=== PATIENT | female | born 1955 | race Hispanic/Latino ===

== ENCOUNTER 2017-08-13 09:00 | Inpatient (IN) | payer OTHER ==
[2017-08-13 09:15] VITALS: BMI 31.2
[2017-08-13] MEDS ORDERED: Midazolam 2 MG/2 ML VIAL ONE (10:08)
[2017-08-13] MEDS ORDERED: Succinylcholine 200 mg/10 ml Inj IV ONE (10:08)
[2017-08-13] MEDS ORDERED: Bupivacaine HCl 0.5% PF (10 ml) Inj ONE (10:08)
[2017-08-13] MEDS ORDERED: Lidocaine 4% (Laryng-O-Jet) Kit MM ONE (10:08)
[2017-08-13] MEDS ORDERED: Propofol 10 mg/ml Inj (20 ML) ONE ×2 (10:08)
[2017-08-13] MEDS ORDERED: Ropivacaine 0.5% 30ML IV ONE (10:08)
[2017-08-13] MEDS ORDERED: Morphine 1 mg/ml preservative-free Inj(Duramorph) ONE (10:44)
[2017-08-13] MEDS ORDERED: Lactated Ringer's 1,000 ML IV ONE ×3 (11:15→15:10)
[2017-08-13] MEDS ORDERED: Rocuronium 10 mg/ml (5 ml) ONE (11:32)
[2017-08-13] MEDS ORDERED: ePHEDrine 50 mg/ml Inj ONE (11:53)
[2017-08-13] MEDS ORDERED: Neostigmine Methylsulfate 3mg/3ml Syringe IV ONE (13:31)
--- NOTE | 2017-08-13 14:01 | PCM.SURG1 ---
Surgeon's Initial Post Op Note - Surgeon's Notes Surgeon: Claudia Pfeiffer MD Weighmaster Lead: Divya Barahona PA-C; Nancy Corey Type of Anesthesia: General Endo Pre-Operative Diagnosis: Left hip severe osteoarthritis Operative Findings: see op report Post-Operative Diagnosis: same as pre-op dx Operation Performed: L THR Specimen/Specimens Removed: left hip femoral head, soft tissue Estimated Blood Loss: EBL {In ML}: 200 Date of Surgery/Procedure: 08/13/17 Time of Surgery/Procedure: 12:00
[2017-08-13] MEDS ORDERED: Dexamethasone 4 mg/1 ml IVP PRN (14:14)
[2017-08-13] MEDS: HYDROmorphone 0.5 mg/0.5 ml ISec IVP PRN ×2 (14:40→14:42)
--- NOTE | 2017-08-13 16:07 | RAD ---
PROCEDURE: Left Hip X-ray Radiographs. HISTORY: s/p LTHR COMPARISON: None. FINDINGS: BONES: Status post left total hip replacement. No acute fracture. No evidence of prosthesis loosening. No dislocation. JOINTS: There is severe osteoarthritis of the right hip. SOFT TISSUES: Normal. OTHER FINDINGS: None. IMPRESSION: Left total hip replacement. Osteoarthritis of the right hip. Otherwise unremarkable examination
[2017-08-13 16:13] LABS: HEMATOCRIT 35.5 % (34.0-47.0); MEAN CELL VOLUME 94.5 fl (81.0-99.0); MEAN CORPUSCULAR HEMOGLOBIN 31.3 pg (27.0-31.0); MEAN CORPUSCULAR HGB CONC 33.1 g/dL (33.0-37.0); RED CELL DISTRIBUTION WIDTH 13.5 % (11.5-14.5); WHITE BLOOD COUNT 17.8 K/uL (4.8-10.8)
[2017-08-13] MEDS ORDERED: Sodium Chloride 0.9% 1,000 ML IV SCH (17:00)
[2017-08-13] MEDS ORDERED: Influenza Vaccine 18yr & older 0.5 ML/45 MCG SYR IM ONE (19:10)
--- NOTE | 2017-08-13 19:11 | CP.PCM.HP ---
History of Present Illness - History of Present Illness History of Present Illness: CC: LEFT Hip replacement for severe OA 62F p/w bilateral hip OA for scheduled surgery and now s/p LEFT THR. She reports pain is well-controlled but having mild dizziness after receiving pain medication, but her nausea is the biggest concern right now. Otherwise, she denies any SOB, chest pain/palpitations, abdominal pain, dysuria, LEFT foot numbness/tingling. PMH: HTN, Depression, OA b/l hips, Prediabetes PSH: C-sxn x1, Tummy tuck, Rt great toe surgery LOURDES: See Med Rec (Called [facility] 08/13/17 to confirm) ALL: NKDA Present on Admission - Present on Admission Any Indicators Present on Admission: No Review of Systems - Gastrointestinal Gastrointestinal: Nausea - Musculoskeletal Musculoskeletal: As Per HPI Past Patient History - Past Medical History & Family History Past Medical History?: Yes - Past Social History Smoking Status: Never Smoked - CARDIAC Hx Cardiac Disorders: Yes Hx Hypertension: Yes (NO MEDS) - PULMONARY Hx Respiratory Disorders: No - NEUROLOGICAL Hx Neurological Disorder: No - HEENT Hx HEENT Problems: No - RENAL Hx Chronic Kidney Disease: No - ENDOCRINE/METABOLIC Hx Endocrine Disorders: Yes Hx Diabetes Mellitus Type 2: Yes (QNO-YCIAQRTH-IA MEDS) - HEMATOLOGICAL/ONCOLOGICAL Hx Blood Disorders: No Hx AIDS: No Hx Anemia: No Hx Blood Transfusions: No - INTEGUMENTARY Hx Dermatological Problems: No - MUSCULOSKELETAL/RHEUMATOLOGICAL Hx Musculoskeletal Disorders: Yes Hx Back Pain: Yes Hx Falls: Yes Hx Herniated Disk: Yes Hx Osteoarthritis: Yes Hx Spinal Stenosis: Yes Other/Comment: SCIATICA - GASTROINTESTINAL Hx Gastrointestinal Disorders: No - GENITOURINARY/GYNECOLOGICAL Hx Genitourinary Disorders: No - PSYCHIATRIC Hx Emotional Abuse: No Hx Physical Abuse: No - SURGICAL HISTORY Hx Surgeries: Yes Other/Comment: C-SECTIONX1;TUMMY TUCK;EPIDURALX3;RIGHT BIG TOE SURGERY - ANESTHESIA Hx Anesthesia: Yes Hx Anesthesia Reactions: Yes (SEVERE NAUSEA/VOMITTING) Hx Malignant Hyperthermia: No Has any member of the family had a problem w/ anesthesia?: No Meds Allergies/Adverse Reactions: Allergies Allergy/AdvReac Type Severity Reaction Status Date / Time No Known Allergies Allergy Verified 08/12/17 11:29 Physical Exam - Constitutional Appears: Well, Non-toxic, No Acute Distress - Head Exam Head Exam: ATRAUMATIC, NORMAL INSPECTION - Eye Exam Eye Exam: EOMI, Normal appearance, PERRL - ENT Exam ENT Exam: Mucous Membranes Moist, Normal Exam - Neck Exam Neck exam: Positive for: Full Rom. Negative for: Lymphadenopathy - Respiratory Exam Respiratory Exam: Clear to Auscultation Bilateral, NORMAL BREATHING PATTERN. absent: Rales, Rhonchi, Wheezes - Cardiovascular Exam Cardiovascular Exam: REGULAR RHYTHM, +S1, +S2. absent: JVD - GI/Abdominal Exam GI & Abdominal Exam: Normal Bowel Sounds, Soft. absent: Tenderness - Extremities Exam Extremities exam: Positive for: normal capillary refill, normal inspection, pedal pulses present. Negative for: calf tenderness, full ROM (Hip Pillow in place), joint swelling, pedal edema - Expanded Lower Extremities Exam Left Hip exam: absent: normal inspection (drsgs c/d/i, no ecchymosis/erythema noted) Foot/Toe exam: normal inspection - Neurological Exam Neurological exam: Alert, Oriented x3 - Psychiatric Exam Psychiatric exam: Normal Affect, Normal Mood - Skin Skin Exam: Normal Color, Warm Results - Vital Signs Recent Vital Signs: Last Vital Signs Temp 36.7 C 08/13/17 18:57 Pulse 100 H 08/13/17 18:57 Resp 18 08/13/17 18:57 BP 122/73 08/13/17 18:57 Pulse Ox 98 08/13/17 18:57 - Labs Result Diagrams: 08/13/17 16:00 Labs: Laboratory Results - last 24 hr 08/13/17 08/13/17 08/13/17 09:20 10:12 10:20 WBC RBC Hgb Hct MCV MCH MCHC RDW Plt Count POC Glucose (mg/dL) 118 H Blood Type O NEGATIVE Blood Type Confirm O NEGATIVE Antibody Screen Negative Crossmatch See Detail BBK History Checked No verified bt 08/13/17 08/13/17 15:12 16:00 WBC 17.8 H RBC 3.76 L Hgb 11.8 L Hct 35.5 MCV 94.5 MCH 31.3 H MCHC 33.1 RDW 13.5 Plt Count 245 POC Glucose (mg/dL) 146 H Blood Type Blood Type Confirm Antibody Screen Crossmatch BBK History Checked Assessment & Plan (1) Osteoarthritis of hips, bilateral Assessment and Plan: s/p L-THR with plans to do the right side in the future. Pain well-controlled. - Ortho management for PT/abx/pain control Status: Acute (2) DVT prophylaxis Assessment and Plan: s/p L-THR - SCDs Status: Acute (3) Depression Assessment and Plan: Asymptomatic at present, well-controlled. - Celexa - Abilify Status: Chronic (4) Hypertension Assessment and Plan: Asymptomatic, well-controlled. - Lisinopril Status: Chronic
[2017-08-13] MEDS ORDERED: ceFAZolin 1 GM in Sodium Chloride 0.9% 100 ML IVPB ONE (20:00)
[2017-08-13] MEDS: oxyCODONE 10 mg ER Tab (oxyCONTIN) PO SCH (21:06)
--- NOTE | 2017-08-13 23:09 | OP ---
DATE OF PROCEDURE: 08/13/2017 PREOPERATIVE DIAGNOSIS: Left hip osteoarthritis. POSTOPERATIVE DIAGNOSIS: Left hip osteoarthritis. PROCEDURE PERFORMED: Left total hip replacement. SURGEON: Claudia Pfeiffer MD. SURVEY DIRECTOR: Divya Barahona PA-C. IMPLANTS SIZE: [employer] Accolade 50-mm titanium cup, size 2 stem with high offset, 32-mm head with neutral neck. ANESTHESIA TYPE: General and spinal. ESTIMATED BLOOD LOSS: 300 mL. COMPLICATIONS: None. HISTORY: The patient with longstanding history of left hip pain refractory of conservative management. X-ray had shown significant loss of joint space. After the failure of extensive conservative management, I had offered the patient the treatment option of total hip replacement. I reviewed the risk and benefits of the surgery with the patient in detail. The risks include, but not limited to bleeding, infection, nerve vessel damage, continuous pain, blood loss, instability, dislocation, iatrogenic fracture, blood clots, need for further surgery, and even . The patient fully understood the risks and benefits and opted to proceed. The patient underwent necessary preoperative medical workup and once medically cleared, was scheduled for the procedure. DESCRIPTION OF PROCEDURE: On the day of the surgery, the patient was admitted to preoperative holding area. A laterality sheet was completed, confirming correct operative site. An informed consent was signed from the patient and the correct operative hip was marked. The patient was brought into the operating room table. He underwent general anesthesia with spinal. Afterwards, the patient was placed on the operating room table in lateral decubitus position. All the bony prominences were well padded and an axillary roll was also placed. The hip was draped and prepped in the standard sterile manner. Time-out was completed, confirming correct operative site. We utilized a standard posterolateral approach. Using a #10 blade, a skin incision was made. The soft tissue dissection was taken down until the IT band fascia was identified incised along it.s fibers. The short external rotators were exposed and excised with the capsule. It was tagged with heavy sutures preserved for a later repair. Afterwards, the hip was dislocated and proposed neck cut was made. The acetabulum was exposed using standard retractors. The remnant of torn labrum was excised along with pulvinar. The acetabulum was reamed using motorized reamers to the size that provide adequate depth and coverage. Next, cup size of 50 mm was securely fixed in to the acetabular socket in appropriate version and inclination. A polyethylene liner was secured in to the acetubular cup. The femoral canal was exposed using standard retractors. Using the box chisel, lateral femoral neck was removed. Femoral canal was broached up to size 2 high-offset broach which provide a secure fit and adequate fill of femoral canal. A high-offset trial neck was secured onto the broach. Different trial heads with variable neck lengths were secured onto the trial neck. The hip was reduced and taken through extensive range of motion to test stability, soft tissue tensioning, and leg length. It was noted that a 32-mm ceramic head with 0 neck length provided adequate stability, soft tissue tensioning, and length. Next, size 2 stem with high offset was securely fixed into the femoral canal. Then, the 32-mm head with 0 neck length was secured onto the neck of femoral stem. Hip was reduced and taken through final range of motion to assess for stability, soft tissue tensioning, and leg length which were found to be satisfactory. Finally, the wound was copiously irrigated using pulse lavage solution. All loose bodies were removed. The short external rotators were repaired to greater trochanter using drill holes and heavy sutures. IT band fascia was tightly closed using heavy sutures and rest of the wound was closed in standard manner. Sterile dressing was applied. The patient was transferred to stretcher. Post-op instructions included posterior hip precautions. During this procedure, I was assisted by Divya Barahona PA-C, who assisted in positioning the patient on the operating room table as well as transferring the patient from the operating room table to the recovery room stretcher. In addition,Divya Barahona PA-C assisted me during the actual operative procedure by positioning, protecting critical neurovascular structures, exposure of the joint, and proper positioning of the implants. The presence of Divya Barahona PA-C as my operative library circulation assistant was medically necessary to ensure the utmost safety of the patient in the pre, intra-, and post-operative periods. Claudia Pfeiffer MD
[2017-08-14] MEDS ORDERED: ceFAZolin 1 GM in Sodium Chloride 0.9% 100 ML IVPB ONE (04:00)
[2017-08-14 06:38] LABS: HEMATOCRIT 28.5 % (34.0-47.0); LYMPH # 1.1 K/uL (1.0-4.3); LYMPH % 11.4 % (20.0-40.0); MEAN CELL VOLUME 94.4 fl (81.0-99.0); MEAN CORPUSCULAR HEMOGLOBIN 32.4 pg (27.0-31.0); MEAN CORPUSCULAR HGB CONC 34.3 g/dL (33.0-37.0); MEAN PLATELET VOLUME 8.3 fl (7.2-11.7); MONO # 0.8 K/uL (0.0-0.8); MONO % 8.5 % (0.0-10.0); NEUT # 7.5 K/uL (1.8-7.0); NEUT % 80.1 % (50.0-75.0); RED CELL DISTRIBUTION WIDTH 13.2 % (11.5-14.5); WHITE BLOOD COUNT 9.3 K/uL (4.8-10.8)
--- NOTE | 2017-08-14 08:41 | CP.PCM.PN ---
Subjective - Date & Time of Evaluation Date of Evaluation: 08/14/17 Time of Evaluation: 08:38 - Subjective Subjective: 62 y/o female seen and evaluated at bedside 1 day s/p left THR. Patient appears to be resting comfortably in her bed and is AAOx3. Patient states that she has mild tenderness on her left hip but is managing it well with medications. Patient denies of any acute overnight events. Patient denies of recent F/N/V/C/ SOB/Chest pain today. Patient denies of any other complains at this time. Objective - Vital Signs/Intake and Output Vital Signs (last 24 hours): Temp Pulse Resp BP Pulse Ox 97.5 F L 85 20 108/69 100 08/14/17 07:43 08/14/17 07:43 08/14/17 07:43 08/14/17 07:43 08/14/17 07:43 - Medications Medications: Current Medications Acetaminophen (Tylenol 325mg Tab) 325 mg PO Q4 PRN PRN Reason: pain1-3 Aripiprazole (Abilify) 5 mg PO DAILY [facility] Aspirin (Aspirin) 325 mg PO BID [facility] Celecoxib (Celebrex) 200 mg PO Q12 [facility] Last Admin: 08/13/17 21:30 Dose: Not Given Citalopram Hydrobromide (Celexa) 20 mg PO DAILY [facility] Docusate Sodium (Colace) 100 mg PO BID [facility] Gabapentin (Neurontin) 300 mg PO HS [facility] Last Admin: 08/13/17 21:30 Dose: Not Given Sodium Chloride (Sodium Chloride 0.9%) 1,000 mls @ 75 mls/hr IV .[id number] [facility] Stop: 08/14/17 16:53 Last Admin: 08/13/17 20:59 Dose: 75 mls/hr Ketorolac Tromethamine (Toradol) 15 mg IM Q8 [facility] Stop: 08/15/17 09:01 Last Admin: 08/14/17 00:39 Dose: 15 mg Lisinopril (Zestril) 10 mg PO DAILY [facility] Morphine Sulfate (Morphine) 2 mg IVP Q4 PRN PRN Reason: Pain, moderate (4-7) Ondansetron HCl (Zofran Odt) 4 mg PO Q8H PRN PRN Reason: Nausea/Vomiting Oxycodone HCl (Oxycontin Extended Release Tab) 10 mg PO Q12 [facility] Stop: 08/16/17 21:01 Last Admin: 08/13/17 21:06 Dose: 10 mg Oxycodone/Acetaminophen (Percocet 5/325 Mg Tab) 1 tab PO Q4 PRN PRN Reason: pain4-6 Stop: 08/16/17 17:27 - Labs Labs: 08/14/17 05:15 - Constitutional Appears: Well, Non-toxic, No Acute Distress - Head Exam Head Exam: ATRAUMATIC - Eye Exam Eye Exam: EOMI, PERRL - ENT Exam ENT Exam: Mucous Membranes Moist - Neck Exam Neck Exam: Full ROM, Normal Inspection - Respiratory Exam Respiratory Exam: Clear to Ausculation Bilateral, NORMAL BREATHING PATTERN - Cardiovascular Exam Cardiovascular Exam: REGULAR RHYTHM - GI/Abdominal Exam GI & Abdominal Exam: Soft, Normal Bowel Sounds - Extremities Exam Extremities Exam: Normal Inspection Additional comments: no calf tenderness or pain on palpation - Back Exam Back Exam: NORMAL INSPECTION - Neurological Exam Neurological Exam: Alert, Awake, Oriented x3 - Psychiatric Exam Psychiatric exam: Normal Affect, Normal Mood - Skin Skin Exam: Dry, Intact, Normal Color, Warm Assessment and Plan - Assessment and Plan (Free Text) Assessment: 62 y/o female with PMHx of HTN, Depression, OA b/l hips, Prediabetes seen and evaluated at bedside 1 day s/p left THR Plan: (1) Osteoarthritis of hips, bilateral Assessment and Plan: 1 day s/p L-THR with plans to do the right side in the future. Pain well- controlled. - Ortho management for PT/abx/pain control - PT will assess the patient today Status: Acute (2) DVT prophylaxis Assessment and Plan: 1 day s/p L-THR - Enoxaparin 40 mg qd - SCDs Status: Acute (3) Depression Assessment and Plan: Asymptomatic at present, well-controlled. - Celexa - Abilify Status: Chronic (4) Hypertension Assessment and Plan: Asymptomatic, well-controlled. - Lisinopril Status: Chronic
[2017-08-14] MEDS: oxyCODONE 10 mg ER Tab (oxyCONTIN) PO SCH ×2 (09:21→21:00)
--- NOTE | 2017-08-14 09:43 | CP.PCM.PN ---
Subjective - Date & Time of Evaluation Date of Evaluation: 08/14/17 Time of Evaluation: 08:45 - Subjective Subjective: S/P LTHR POD#1 Pt seen and examined at bedside, comfortable in bed Pt c/o mild left hip pain, well controlled with pain meds Pt denies any SOB, chest pain, N/V/D, numbness/tingling LLE Objective - Vital Signs/Intake and Output Vital Signs (last 24 hours): Temp Pulse Resp BP Pulse Ox 97.5 F L 85 20 108/69 100 08/14/17 07:43 08/14/17 07:43 08/14/17 07:43 08/14/17 07:43 08/14/17 07:43 - Medications Medications: Current Medications Acetaminophen (Tylenol 325mg Tab) 325 mg PO Q4 PRN PRN Reason: pain1-3 Aripiprazole (Abilify) 5 mg PO DAILY [facility] Last Admin: 08/14/17 09:16 Dose: 5 mg Aspirin (Aspirin) 325 mg PO BID [facility] Last Admin: 08/14/17 09:21 Dose: 325 mg Celecoxib (Celebrex) 200 mg PO Q12 [facility] Last Admin: 08/14/17 09:17 Dose: 200 mg Citalopram Hydrobromide (Celexa) 20 mg PO DAILY [facility] Last Admin: 08/14/17 09:17 Dose: 20 mg Docusate Sodium (Colace) 100 mg PO BID [facility] Last Admin: 08/14/17 09:17 Dose: 100 mg Gabapentin (Neurontin) 300 mg PO HS [facility] Last Admin: 08/13/17 21:30 Dose: Not Given Sodium Chloride (Sodium Chloride 0.9%) 1,000 mls @ 75 mls/hr IV .[id number] [facility] Stop: 08/14/17 16:53 Last Admin: 08/13/17 20:59 Dose: 75 mls/hr Ketorolac Tromethamine (Toradol) 15 mg IM Q8 [facility] Stop: 08/15/17 09:01 Last Admin: 08/14/17 00:39 Dose: 15 mg Lisinopril (Zestril) 10 mg PO DAILY [facility] Morphine Sulfate (Morphine) 2 mg IVP Q4 PRN PRN Reason: Pain, moderate (4-7) Ondansetron HCl (Zofran Odt) 4 mg PO Q8H PRN PRN Reason: Nausea/Vomiting Oxycodone HCl (Oxycontin Extended Release Tab) 10 mg PO Q12 [facility] Stop: 08/16/17 21:01 Last Admin: 08/14/17 09:21 Dose: 10 mg Oxycodone/Acetaminophen (Percocet 5/325 Mg Tab) 1 tab PO Q4 PRN PRN Reason: pain4-6 Stop: 08/16/17 17:27 - Labs Labs: 08/14/17 05:15 - Constitutional Appears: Well, No Acute Distress - Respiratory Exam Respiratory Exam: Clear to Ausculation Bilateral, NORMAL BREATHING PATTERN - Cardiovascular Exam Cardiovascular Exam: REGULAR RHYTHM, RRR - Extremities Exam Additional comments: LLE: Hip dressing C/D/I Calves soft and nontender b/l N/V intact distally Normal ROM at knee and ankle No foot drop Distal pulses wnl Assessment and Plan - Assessment and Plan (Free Text) Assessment: 62 yo F s/p LTHR POD#1 Plan: Pain Control DVT ppx PT/OT WBAT LLE Incentive Spirometer F/U labs COntinue current tx Discussed with Dr. Pfeiffer
[2017-08-14] MEDS ORDERED: Enoxaparin 40 mg Syringe SC SCH (11:30)
[2017-08-14] MEDS: Pantoprazole 40 mg EC Tab PO SCH (16:50)
[2017-08-15] MEDS: Oxycodone/Acetaminophen 5/325 mg Tab PO PRN ×3 (00:24→20:06)
[2017-08-15] MEDS: Docusate-Senna 50 mg-8.6 mg Tab PO SCH ×2 (00:25→21:41)
[2017-08-15 08:57] LABS: BLOOD UREA NITROGEN 10 mg/dl (7-17); CALCIUM 8.3 mg/dL (8.4-10.2); CARBON DIOXIDE 28 mmol/L (22-30); CHLORIDE 107 mmol/L (98-107); GFR AFRICAN-AMERICAN > 60; GLUCOSE,RANDOM 115 mg/dL (65-105); POTASSIUM 3.5 MMOL/L (3.6-5.0); SODIUM 144 mmol/l (132-148)
[2017-08-15] MEDS: oxyCODONE 10 mg ER Tab (oxyCONTIN) PO SCH ×2 (09:08→21:42)
[2017-08-15] MEDS: Pantoprazole 40 mg EC Tab PO SCH (09:15)
--- NOTE | 2017-08-15 09:15 | CP.PCM.PN ---
Addendum entered and electronically signed by Mariela Kessler DPM 08/15/17 13:40 : Patient was sent to another floor due to new symptoms development. During physical therapy session, she felt dizzy and felt shortness of breath. CT angio of the chest was ordered and patient received 110mg of enoxaparin. Will continue to monitor patient. Original Note: Subjective - Date & Time of Evaluation Date of Evaluation: 08/15/17 Time of Evaluation: 09:10 - Subjective Subjective: 62 y/o female seen and evaluated at bedside 2 days s/p left THR. Patient is AAOx3 and is in NAD. Patient states that she was seen by physical therapy yesterday. Patient states that she walked around in the room with physical therapy yesterday. Patient states that she has been having mild pain but she is managing it well. Patient denies of any overnight events. Patient denies of any recent F/N/V/C/SOB/chest pain. Patient denies of any other complains at this time. Objective - Vital Signs/Intake and Output Vital Signs (last 24 hours): Temp Pulse Resp BP Pulse Ox 98 F 86 18 97/60 L 97 08/15/17 08:03 08/15/17 08:03 08/15/17 08:03 08/15/17 08:03 08/15/17 08:03 - Medications Medications: Current Medications Acetaminophen (Tylenol 325mg Tab) 325 mg PO Q4 PRN PRN Reason: pain1-3 Last Admin: 08/14/17 21:39 Dose: 325 mg Aripiprazole (Abilify) 5 mg PO DAILY [facility] Last Admin: 08/14/17 09:48 Dose: Not Given Celecoxib (Celebrex) 200 mg PO Q12 [facility] Last Admin: 08/14/17 21:40 Dose: 200 mg Citalopram Hydrobromide (Celexa) 20 mg PO DAILY [facility] Last Admin: 08/14/17 09:49 Dose: Not Given Docusate Sodium (Colace) 100 mg PO BID [facility] Last Admin: 08/14/17 16:50 Dose: 100 mg Enoxaparin Sodium (Lovenox) 40 mg SC DAILY [facility] PRN Reason: Protocol Gabapentin (Neurontin) 300 mg PO HS [facility] Last Admin: 08/14/17 23:00 Dose: Not Given Lisinopril (Zestril) 10 mg PO DAILY [facility] Last Admin: 08/14/17 16:52 Dose: 10 mg Morphine Sulfate (Morphine) 2 mg IVP Q4 PRN PRN Reason: Pain, severe (8-10) Ondansetron HCl (Zofran Odt) 4 mg PO Q8H PRN PRN Reason: Nausea/Vomiting Oxycodone HCl (Oxycontin Extended Release Tab) 10 mg PO Q12 [facility] Stop: 08/16/17 21:01 Last Admin: 08/14/17 21:00 Dose: Not Given Oxycodone/Acetaminophen (Percocet 5/325 Mg Tab) 1 tab PO Q4 PRN PRN Reason: pain4-6 Stop: 08/16/17 17:27 Last Admin: 08/15/17 05:32 Dose: 1 tab Pantoprazole Sodium (Protonix Ec Tab) 40 mg PO DAILY [facility] Last Admin: 08/14/17 16:50 Dose: 40 mg Senna/Docusate Sodium (Senokot S 50 Mg-8.6 Mg) 1 tab PO HS [facility] Last Admin: 08/15/17 00:25 Dose: 1 tab - Labs Labs: 08/14/17 05:15 08/15/17 08:10 - Constitutional Appears: Well, Non-toxic, No Acute Distress - Head Exam Head Exam: ATRAUMATIC - Eye Exam Eye Exam: EOMI, PERRL - ENT Exam ENT Exam: Mucous Membranes Moist - Neck Exam Neck Exam: Full ROM, Normal Inspection - Respiratory Exam Respiratory Exam: Clear to Ausculation Bilateral, NORMAL BREATHING PATTERN - GI/Abdominal Exam GI & Abdominal Exam: Soft, Normal Bowel Sounds - Rectal Exam Rectal Exam: Deferred - Extremities Exam Extremities Exam: Normal Capillary Refill, Normal Inspection - Back Exam Back Exam: Full ROM, NORMAL INSPECTION - Neurological Exam Neurological Exam: Alert, Awake, Oriented x3 - Psychiatric Exam Psychiatric exam: Normal Affect, Normal Mood - Skin Skin Exam: Dry, Intact, Normal Color, Warm Assessment and Plan - Assessment and Plan (Free Text) Assessment: 62 y/o female with PMHx of HTN, Depression, OA b/l hips, Prediabetes seen and evaluated at bedside 2 days s/p left THR Plan: (1) Osteoarthritis of hips, bilateral Assessment and Plan: 1 day s/p L-THR with plans to do the right side in the future. Pain well- controlled. - Ortho management for PT/abx/pain control - Patient is seen by physical therapy yesterday - continue PT Status: Acute (2) DVT prophylaxis Assessment and Plan: 2 day s/p L-THR - Enoxaparin 40 mg qd - SCDs - CT angio chest ordered - One time dose of Enoxaparin 110 mg given SC today Status: Acute (3) Depression Assessment and Plan: Asymptomatic at present, well-controlled. - Celexa - Abilify Status: Chronic (4) Hypertension Assessment and Plan: Asymptomatic, well-controlled. - Lisinopril Status: Chronic
[2017-08-15] MEDS ORDERED: Enoxaparin 80 mg Syringe SC STA (11:52)
[2017-08-15] MEDS ORDERED: Enoxaparin 100 mg Syringe SC ONE (12:00)
[2017-08-15] MEDS ORDERED: Enoxaparin 80 mg Syringe SC SCH (12:00)
[2017-08-15] MEDS ORDERED: Sodium Chloride 0.9% 50 ML IV ONE (12:59)
[2017-08-15] MEDS ORDERED: Iodixanol 320 MG/ML 100 ML BOTTLE IV ONE (12:59)
[2017-08-15] MEDS ORDERED: Enoxaparin 80 mg Syringe SC ONE (14:15)
--- NOTE | 2017-08-15 14:17 | CT ---
PROCEDURE: CT Chest with contrast (Pulmonary Angiogram) HISTORY: Shortness of breath 1 day s/p THR COMPARISON: Chest radiographs 08/05/2017. TECHNIQUE: Axial computed tomography images were obtained of the chest in the pulmonary arterial phase of enhancement. Coronal and sagittal reformatted images were created and reviewed. Intravenous contrast dose: Visipaque 320, 80 cc. Radiation dose: Total exam DLP = 366.60 mGy-cm. This CT exam was performed using one or more of the following dose reduction techniques: Automated exposure control, adjustment of the mA and/or kV according to patient size, and/or use of iterative reconstruction technique. FINDINGS: PULMONARY ARTERIES: Multifocal pulmonary emboli identified at right upper and lower lobe tertiary and quarternary branches. The main pulmonary artery and main right and left pulmonary arteries appear widely patent with no emboli appreciated. No definite left sided pulmonary emboli. AORTA: No acute findings. No thoracic aortic aneurysm. LUNGS: Unremarkable. No nodule, mass or pulmonary consolidation. Trace bibasilar dependent atelectasis. PLEURAL SPACES: Unremarkable. No effusion or pneuomothorax. HEART: Cardiac size upper limits of normal. No pulmonary vascular congestion. LYMPH NODES: No lymphadenopathy. BONES, CHEST WALL: Unremarkable. No fracture or destructive lesion OTHER FINDINGS: Unremarkable. IMPRESSION: Multifocal small branch pulmonary emboli are identified in the right upper and lower lobes as discussed above with no left-sided pulmonary emboli identified. No large pulmonary artery emboli are identified including the main pulmonary artery and main right and left branches. Limited bilateral basilar dependent atelectasis. Findings discussed with Nurse Alia Jay with written down and read back verification 08/15/2017 14:05. Critical finding message left on voicemail of Dr. Alford 08/15/2017 at 13:59.
[2017-08-15 15:41] LABS: HEMATOCRIT 29.3 % (34.0-47.0); MEAN CELL VOLUME 94.3 fl (81.0-99.0); MEAN CORPUSCULAR HEMOGLOBIN 32.2 pg (27.0-31.0); MEAN CORPUSCULAR HGB CONC 34.2 g/dL (33.0-37.0); RED CELL DISTRIBUTION WIDTH 13.1 % (11.5-14.5)
[2017-08-15 15:55] LABS: ALB/GLOB RATIO 1.3 (1.0-2.1); ALKALINE PHOSPHATASE 66 U/L (38-126); ALT/SGPT 34 U/L (9-52); AST/SGOT 37 U/L (14-36); BILIRUBIN,TOTAL 0.6 mg/dl (0.2-1.3); BLOOD UREA NITROGEN 8 mg/dl (7-17); CALCIUM 8.5 mg/dL (8.4-10.2); CARBON DIOXIDE 29 mmol/L (22-30); CHLORIDE 104 mmol/L (98-107); GFR AFRICAN-AMERICAN > 60; GLUCOSE,RANDOM 146 mg/dL (65-105); POTASSIUM 3.4 MMOL/L (3.6-5.0); SODIUM 142 mmol/l (132-148); TOTAL PROTEIN 6.5 G/DL (6.3-8.2)
--- NOTE | 2017-08-15 18:46 | US ---
PROCEDURE: Bilateral lower extremity venous duplex Doppler. HISTORY: S/p PE secondary to the left THR COMPARISON: None available. TECHNIQUE: Bilateral common femoral, superficial femoral, popliteal and posterior tibial veins were evaluated. Flow was assessed with color Doppler, compressibility, assessment of phasic flow and augmentation response. FINDINGS: COMMON FEMORAL VEIN: Right CFV: Unremarkable. Left CFV: Unremarkable. SUPERFICIAL FEMORAL VEIN: Right SFV: Unremarkable. Left SFV: Unremarkable. POPLITEAL VEIN: Right Popliteal: Unremarkable. Left Popliteal: Unremarkable. POSTERIOR TIBIAL VEIN: Right PTV: Unremarkable. Left PTV: Unremarkable. OTHER FINDINGS: None. IMPRESSION: No evidence of deep venous thrombosis.
[2017-08-16] MEDS: Oxycodone/Acetaminophen 5/325 mg Tab PO PRN ×2 (04:06→21:34)
[2017-08-16 05:35] LABS: HEMATOCRIT 27.1 % (34.0-47.0); MEAN CELL VOLUME 93.6 fl (81.0-99.0); MEAN CORPUSCULAR HEMOGLOBIN 32.2 pg (27.0-31.0); MEAN CORPUSCULAR HGB CONC 34.4 g/dL (33.0-37.0); RED CELL DISTRIBUTION WIDTH 12.8 % (11.5-14.5); WHITE BLOOD COUNT 7.7 K/uL (4.8-10.8)
[2017-08-16 07:55] LABS: ALB/GLOB RATIO 1.1 (1.0-2.1); ALKALINE PHOSPHATASE 54 U/L (38-126); ALT/SGPT 26 U/L (9-52); AST/SGOT 24 U/L (14-36); BILIRUBIN,TOTAL 0.6 mg/dl (0.2-1.3); BLOOD UREA NITROGEN 7 mg/dl (7-17); CALCIUM 8.2 mg/dL (8.4-10.2); CARBON DIOXIDE 27 mmol/L (22-30); CHLORIDE 104 mmol/L (98-107); GFR AFRICAN-AMERICAN > 60; GLUCOSE,RANDOM 150 mg/dL (65-105); POTASSIUM 3.1 MMOL/L (3.6-5.0); SODIUM 139 mmol/l (132-148); TOTAL PROTEIN 5.8 G/DL (6.3-8.2)
[2017-08-16] MEDS: Enoxaparin 120 mg Syringe SC SCH (08:49)
[2017-08-16] MEDS: Pantoprazole 40 mg EC Tab PO SCH (08:50)
[2017-08-16] MEDS: oxyCODONE 10 mg ER Tab (oxyCONTIN) PO SCH (08:54)
[2017-08-16] MEDS ORDERED: Enoxaparin 120 mg Syringe SC SCH (09:00)
--- NOTE | 2017-08-16 09:24 | CP.PCM.PN ---
Subjective - Date & Time of Evaluation Date of Evaluation: 08/16/17 Time of Evaluation: 09:20 - Subjective Subjective: 62 y/o female seen and evaluated at bedside. Patient appears to be resting comfortably in her bed and is AAOx3. Patient is in no acute distress. Patient denies of any problems with breathing today. Patient denies of any acute overnight events. Patient states that she feels little chest tightness this morning. Patient also states that she is having little pain in her left arm. Patient denies of any calf pain today. Patient denies of any other complains at this time. Patient denies of any F/N/V/C/SOB today. Patient denies of any other complains at this time. Objective - Vital Signs/Intake and Output Vital Signs (last 24 hours): Temp Pulse Resp BP Pulse Ox 98.5 F 98 H 18 114/74 96 08/16/17 08:18 08/16/17 08:18 08/16/17 08:18 08/16/17 08:18 08/16/17 08:18 - Medications Medications: Current Medications Acetaminophen (Tylenol 325mg Tab) 325 mg PO Q4 PRN PRN Reason: pain1-3 Last Admin: 08/14/17 21:39 Dose: 325 mg Aripiprazole (Abilify) 5 mg PO DAILY [facility] Last Admin: 08/16/17 08:55 Dose: Not Given Celecoxib (Celebrex) 200 mg PO Q12 [facility] Last Admin: 08/15/17 21:36 Dose: 200 mg Citalopram Hydrobromide (Celexa) 20 mg PO DAILY [facility] Last Admin: 08/16/17 08:56 Dose: Not Given Docusate Sodium (Colace) 100 mg PO BID [facility] Last Admin: 08/16/17 08:50 Dose: 100 mg Enoxaparin Sodium (Lovenox) 110 mg SC DAILY [facility] Last Admin: 08/16/17 08:49 Dose: 110 mg Gabapentin (Neurontin) 300 mg PO HS [facility] Last Admin: 08/15/17 21:42 Dose: Not Given Lisinopril (Zestril) 10 mg PO DAILY [facility] Last Admin: 08/15/17 09:12 Dose: Not Given Morphine Sulfate (Morphine) 2 mg IVP Q4 PRN PRN Reason: Pain, severe (8-10) Ondansetron HCl (Zofran Odt) 4 mg PO Q8H PRN PRN Reason: Nausea/Vomiting Oxycodone HCl (Oxycontin Extended Release Tab) 10 mg PO Q12 [facility] Stop: 08/16/17 21:01 Last Admin: 08/16/17 08:54 Dose: Not Given Oxycodone/Acetaminophen (Percocet 5/325 Mg Tab) 1 tab PO Q4 PRN PRN Reason: pain4-6 Stop: 08/16/17 17:27 Last Admin: 08/16/17 04:06 Dose: 1 tab Pantoprazole Sodium (Protonix Ec Tab) 40 mg PO DAILY [facility] Last Admin: 08/16/17 08:50 Dose: 40 mg Senna/Docusate Sodium (Senokot S 50 Mg-8.6 Mg) 1 tab PO HS [facility] Last Admin: 08/15/17 21:41 Dose: 1 tab - Labs Labs: 08/16/17 04:30 08/16/17 04:30 - Constitutional Appears: Well, Non-toxic, No Acute Distress - Head Exam Head Exam: ATRAUMATIC - Eye Exam Eye Exam: EOMI, Normal appearance - ENT Exam ENT Exam: Mucous Membranes Moist, Normal Exam - Neck Exam Neck Exam: Full ROM, Normal Inspection - Respiratory Exam Respiratory Exam: Clear to Ausculation Bilateral, NORMAL BREATHING PATTERN - Cardiovascular Exam Cardiovascular Exam: REGULAR RHYTHM - GI/Abdominal Exam GI & Abdominal Exam: Soft, Normal Bowel Sounds - Extremities Exam Extremities Exam: Normal Capillary Refill, Normal Inspection. absent: Calf Tenderness - Back Exam Back Exam: NORMAL INSPECTION - Neurological Exam Neurological Exam: Alert, Awake, Oriented x3 - Psychiatric Exam Psychiatric exam: Normal Affect, Normal Mood - Skin Skin Exam: Intact, Normal Color, Warm Assessment and Plan - Assessment and Plan (Free Text) Assessment: 62 y/o female with PMHx of HTN, Depression, OA b/l hips, prediabetes seen and evaluated at bedside 3 days s/p left THR and 1 day s/p pulmonary embolism Plan: (1) Pulmonary Embolism/DVT prophylaxis Assessment and Plan: 3 day s/p L-THR and 1 day s/p PE episode - Enoxaparin 110 mg qd - SCDs - CT angio chest ordered (08/15): - Multifocal small branch pulmonary emboli are identified in the right upper and lower lobes. No left sided pulmonary emboli identified. No large pulmonary artery emboli are identified including the main pulmonary artery and main right and left branches. - Immediate dose of Enoxaparin 110 mg given SC (08/15) - Bilateral lower extremity duplex (08/15): - No evidence of deep venous thrombosis - Left upper extremity venous duplex ordered : results pending - Ortho recommends IVC filter placement - Hematology recommendations appreciated - Patient will need to continue the lovenox for 6 months. If the patient cannot tolerate the anticoagulant or if she has any bleeding with anticoagulant , then IVC filter will be needed - as per Dr. Wilson - Interventional radiology recommendations appreciated - Pt does not have a DVT in her lower extremities. I think an IVC filter is indicated ONLY if the pt can not be anticoagulated - as per Dr. Veliz - EKG ordered this morning (08/16) - Normal reading - Echo ordered (08/15) - pending - Troponin levels - negative - Factor 5, Protein C and S, DINO, Antiphospholipid, MTHFR, PT/INR and PTT labs - pending Status: Acute (2) Osteoarthritis of hips, bilateral Assessment and Plan: 3 days s/p L-THR with plans to do the right side in the future. Pain well- controlled. - Ortho management for PT/abx/pain control - Patient is followed by physical therapy Status: Acute (3) Depression Assessment and Plan: Asymptomatic at present, well-controlled. - Celexa - Abilify Status: Chronic (4) Hypertension Assessment and Plan: Asymptomatic, well-controlled. - Lisinopril Status: Chronic
--- NOTE | 2017-08-16 09:48 | PCM.IRP ---
History of Present Illness - History of Present Illness History of Present Illness: IR requested to evaluate Gina Aguilar for IVC filter or catheter directed treatment of her PE. CT reviewed. Pt has thrombus in the segmental right pulmonary artery. The clot burden does not meet criteria for catheter directed therapy ( Main PA, or right and left PA with right ventricular strain). Pt does not have a DVT in her lower extremities. I think an IVC filter is indicated ONLY if the pt can not be anticoagulated. Objective - Vital Signs/Intake and Output Vital Signs (last 24 hours): Vital Signs - 24 hr 08/15/17 08/15/17 08/15/17 16:00 20:00 20:32 Temperature 98.8 F 98.2 F Pulse Rate 105 H 115 H Respiratory 14 20 Rate Blood Pressure 122/80 107/75 55/37 L O2 Sat by Pulse 98 100 Oximetry 08/15/17 08/16/17 08/16/17 22:00 00:11 05:02 Temperature 98.5 F 98.6 F Pulse Rate 94 H 94 H 99 H Respiratory 18 18 Rate Blood Pressure 105/68 109/70 O2 Sat by Pulse 99 99 Oximetry 08/16/17 08:18 Temperature 98.5 F Pulse Rate 98 H Respiratory 18 Rate Blood Pressure 114/74 O2 Sat by Pulse 96 Oximetry Intake and Output (last 12 hours): Intake & Output 08/15/17 08/16/17 08/16/17 18:59 06:59 18:59 Intake Total 500 Balance 500 Intake: Oral 500 Other: # Voids Urine, Voided 1,500 - Medications Medications: Current Medications Acetaminophen (Tylenol 325mg Tab) 325 mg PO Q4 PRN PRN Reason: pain1-3 Last Admin: 08/14/17 21:39 Dose: 325 mg Aripiprazole (Abilify) 5 mg PO DAILY [facility] Last Admin: 08/16/17 08:55 Dose: Not Given Celecoxib (Celebrex) 200 mg PO Q12 [facility] Last Admin: 08/16/17 09:27 Dose: Not Given Citalopram Hydrobromide (Celexa) 20 mg PO DAILY [facility] Last Admin: 08/16/17 08:56 Dose: Not Given Docusate Sodium (Colace) 100 mg PO BID [facility] Last Admin: 08/16/17 08:50 Dose: 100 mg Enoxaparin Sodium (Lovenox) 110 mg SC DAILY [facility] Last Admin: 08/16/17 08:49 Dose: 110 mg Gabapentin (Neurontin) 300 mg PO HS [facility] Last Admin: 08/15/17 21:42 Dose: Not Given Lisinopril (Zestril) 10 mg PO DAILY [facility] Last Admin: 08/15/17 09:12 Dose: Not Given Morphine Sulfate (Morphine) 2 mg IVP Q4 PRN PRN Reason: Pain, severe (8-10) Ondansetron HCl (Zofran Odt) 4 mg PO Q8H PRN PRN Reason: Nausea/Vomiting Oxycodone HCl (Oxycontin Extended Release Tab) 10 mg PO Q12 [facility] Stop: 08/16/17 21:01 Last Admin: 08/16/17 08:54 Dose: Not Given Oxycodone/Acetaminophen (Percocet 5/325 Mg Tab) 1 tab PO Q4 PRN PRN Reason: pain4-6 Stop: 08/16/17 17:27 Last Admin: 08/16/17 04:06 Dose: 1 tab Pantoprazole Sodium (Protonix Ec Tab) 40 mg PO DAILY [facility] Last Admin: 08/16/17 08:50 Dose: 40 mg Senna/Docusate Sodium (Senokot S 50 Mg-8.6 Mg) 1 tab PO HS [facility] Last Admin: 08/15/17 21:41 Dose: 1 tab - Labs Labs (last 24 hours): Laboratory Results - last 24 hr 08/13/17 08/15/17 08/15/17 09:20 15:35 15:35 WBC 11.0 H RBC 3.11 L Hgb 10.0 L Hct 29.3 L MCV 94.3 MCH 32.2 H MCHC 34.2 RDW 13.1 Plt Count 223 D-Dimer, Quantitative Sodium 142 Potassium 3.4 L Chloride 104 Carbon Dioxide 29 Anion Gap 12 BUN 8 Creatinine 0.6 L Est GFR ( Amer) > 60 Est GFR (Non-Af Amer) > 60 Random Glucose 146 H Calcium 8.5 Total Bilirubin 0.6 AST 37 H ALT 34 Alkaline Phosphatase 66 Total Protein 6.5 Albumin 3.7 Globulin 2.8 Albumin/Globulin Ratio 1.3 Crossmatch See Detail 08/15/17 08/16/17 08/16/17 15:35 04:30 04:30 WBC 7.7 RBC 2.89 L Hgb 9.3 L Hct 27.1 L MCV 93.6 MCH 32.2 H MCHC 34.4 RDW 12.8 Plt Count 195 D-Dimer, Quantitative 1021 H Sodium 139 Potassium 3.1 L Chloride 104 Carbon Dioxide 27 Anion Gap 11 BUN 7 Creatinine 0.6 L Est GFR ( Amer) > 60 Est GFR (Non-Af Amer) > 60 Random Glucose 150 H Calcium 8.2 L Total Bilirubin 0.6 AST 24 ALT 26 Alkaline Phosphatase 54 Total Protein 5.8 L Albumin 3.1 L Globulin 2.7 Albumin/Globulin Ratio 1.1 Crossmatch
--- NOTE | 2017-08-16 10:03 | CP.PCM.CON ---
History of Present Illness - History of Present Illness History of Present Illness: This is a 62 yrs old female who was admitted for a left hip replacement. She had the surgery without any side effectts. She had been started on aspirin post op by orthopedic surgeon. When she was doing her physical therapy she suddenly felt some pain in the right side of the chest, and has shortness of breath, . A ct scan done showed a embolus in the distal branch of the right upper lobe of the lung. the aspirin was discontinued and pt started on lovenox. She is doing well now. P/H of hypertension, depression and prediabetes. Past Patient History - Past Medical History & Family History Past Medical History?: Yes - Past Social History Smoking Status: Never Smoked - CARDIAC Hx Cardiac Disorders: Yes Hx Hypertension: Yes (NO MEDS) - PULMONARY Hx Respiratory Disorders: No - NEUROLOGICAL Hx Neurological Disorder: No - HEENT Hx HEENT Problems: No - RENAL Hx Chronic Kidney Disease: No - ENDOCRINE/METABOLIC Hx Diabetes Mellitus Type 2: Yes ([id number] MEDS) - HEMATOLOGICAL/ONCOLOGICAL Hx Blood Disorders: No Hx AIDS: No Hx Anemia: No Hx Blood Transfusions: No - INTEGUMENTARY Hx Dermatological Problems: No - MUSCULOSKELETAL/RHEUMATOLOGICAL Hx Arthritis: Yes - GASTROINTESTINAL Hx Gastrointestinal Disorders: No - GENITOURINARY/GYNECOLOGICAL Hx Genitourinary Disorders: No - PSYCHIATRIC Hx Emotional Abuse: No Hx Physical Abuse: No - SURGICAL HISTORY Hx Surgeries: Yes Other/Comment: C-SECTIONX1;TUMMY TUCK;EPIDURALX3;RIGHT BIG TOE SURGERY - ANESTHESIA Hx Anesthesia: Yes Hx Anesthesia Reactions: Yes (SEVERE NAUSEA/VOMITTING) Hx Malignant Hyperthermia: No Has any member of the family had a problem w/ anesthesia?: No Meds Allergies/Adverse Reactions: Allergies Allergy/AdvReac Type Severity Reaction Status Date / Time No Known Allergies Allergy Verified 08/12/17 11:29 - Medications Medications: Current Medications Acetaminophen (Tylenol 325mg Tab) 325 mg PO Q4 PRN PRN Reason: pain1-3 Last Admin: 08/14/17 21:39 Dose: 325 mg Aripiprazole (Abilify) 5 mg PO DAILY [facility] Last Admin: 08/16/17 08:55 Dose: Not Given Celecoxib (Celebrex) 200 mg PO Q12 [facility] Last Admin: 08/16/17 09:27 Dose: Not Given Citalopram Hydrobromide (Celexa) 20 mg PO DAILY [facility] Last Admin: 08/16/17 08:56 Dose: Not Given Docusate Sodium (Colace) 100 mg PO BID [facility] Last Admin: 08/16/17 08:50 Dose: 100 mg Enoxaparin Sodium (Lovenox) 110 mg SC DAILY [facility] Last Admin: 08/16/17 08:49 Dose: 110 mg Gabapentin (Neurontin) 300 mg PO HS [facility] Last Admin: 08/15/17 21:42 Dose: Not Given Lisinopril (Zestril) 10 mg PO DAILY [facility] Last Admin: 08/15/17 09:12 Dose: Not Given Morphine Sulfate (Morphine) 2 mg IVP Q4 PRN PRN Reason: Pain, severe (8-10) Ondansetron HCl (Zofran Odt) 4 mg PO Q8H PRN PRN Reason: Nausea/Vomiting Oxycodone HCl (Oxycontin Extended Release Tab) 10 mg PO Q12 [facility] Stop: 08/16/17 21:01 Last Admin: 08/16/17 08:54 Dose: Not Given Oxycodone/Acetaminophen (Percocet 5/325 Mg Tab) 1 tab PO Q4 PRN PRN Reason: pain4-6 Stop: 08/16/17 17:27 Last Admin: 08/16/17 04:06 Dose: 1 tab Pantoprazole Sodium (Protonix Ec Tab) 40 mg PO DAILY [facility] Last Admin: 08/16/17 08:50 Dose: 40 mg Senna/Docusate Sodium (Senokot S 50 Mg-8.6 Mg) [address] [facility] Last Admin: 08/15/17 21:41 Dose: 1 tab Physical Exam - Additional Findings Additional findings: Physical exam; Alert, well oriented, in no acute distress neck; supple, no adenopathy Chest; clear, no rales or rhonchi Heart; RSR, no murmur Abd; soft, no mass, no h/s megaly Left lower extremity; No signs of bleeding. Results - Vital Signs Recent Vital Signs: Last Vital Signs Temp 98.5 F 08/16/17 08:18 Pulse 98 H 08/16/17 08:18 Resp 18 08/16/17 08:18 BP 114/74 08/16/17 08:18 Pulse Ox 96 08/16/17 08:18 - Labs Result Diagrams: 08/16/17 04:30 08/16/17 04:30 Labs: Laboratory Results - last 24 hr 08/13/17 08/15/17 08/15/17 09:20 15:35 15:35 WBC 11.0 H RBC 3.11 L Hgb 10.0 L Hct 29.3 L MCV 94.3 MCH 32.2 H MCHC 34.2 RDW 13.1 Plt Count 223 D-Dimer, Quantitative Sodium 142 Potassium 3.4 L Chloride 104 Carbon Dioxide 29 Anion Gap 12 BUN 8 Creatinine 0.6 L Est GFR ( Amer) > 60 Est GFR (Non-Af Amer) > 60 Random Glucose 146 H Calcium 8.5 Total Bilirubin 0.6 AST 37 H ALT 34 Alkaline Phosphatase 66 Total Protein 6.5 Albumin 3.7 Globulin 2.8 Albumin/Globulin Ratio 1.3 Crossmatch See Detail 08/15/17 08/16/17 08/16/17 15:35 04:30 04:30 WBC 7.7 RBC 2.89 L Hgb 9.3 L Hct 27.1 L MCV 93.6 MCH 32.2 H MCHC 34.4 RDW 12.8 Plt Count 195 D-Dimer, Quantitative 1021 H Sodium 139 Potassium 3.1 L Chloride 104 Carbon Dioxide 27 Anion Gap 11 BUN 7 Creatinine 0.6 L Est GFR ( Amer) > 60 Est GFR (Non-Af Amer) > 60 Random Glucose 150 H Calcium 8.2 L Total Bilirubin 0.6 AST 24 ALT 26 Alkaline Phosphatase 54 Total Protein 5.8 L Albumin 3.1 L Globulin 2.7 Albumin/Globulin Ratio 1.1 Crossmatch Assessment & Plan - Assessment and Plan (Free Text) Assessment: impression; Pulmonary embolism following a left hip replacement. Plan: Plan; I feel pt should be on lovenox because it is important to treat her for the thomboembolic event. She has no previous h/o bleeding and I feel it can be given safely as long as we keep an eye on the hip joint for any bleeding. She will need to continue the lovenox for 6 months. I dont feel she needs a filter at this time since there is no DVT in the lower extremities. If the pt cannot tolerate the anticoagulant or if she has any bleeding with the anticoagulant, she will then need a filter - Date & Time Date: 08/16/17 Time: 10:18
[2017-08-16] MEDS ORDERED: Lidocaine 5% Patch TD SCH (11:30)
[2017-08-16 11:55] LABS: PARTIAL THROMBOPLASTIN TIME 34.3 Seconds (25.6-37.1)
--- NOTE | 2017-08-16 16:14 | US ---
PROCEDURE: Right Upper Extremity Venous Duplex Exam HISTORY: r/o UE dvt, left arm pain PRIORS: None. TECHNIQUE: Right upper extremity, internal jugular, subclavian, axillary, brachial, ulnar, radial, basilic and upper cephalic veins were evaluated. Flow was assessed with color Doppler, compressibility, assessment of phasic flow and augmentation response. Report prepared by medical technologist prn. FINDINGS: RIGHT: 1. Internal Jugular: 1.1. Compressibility - Fully compressible: Thrombus - None : Flow - Phasic: Augmentation -Normal: Reflux - None. 2. Subclavian: 2.1. Compressibility - Fully compressible: Thrombus - None : Flow - Phasic: Augmentation -Normal: Reflux - None. 3. Axillary: 3.1. Compressibility - Fully compressible: Thrombus - None : Flow - Phasic: Augmentation -Normal: Reflux - None. 4. Brachial: 4.1. Compressibility - Fully compressible: Thrombus - None: Flow - Phasic: Augmentation -Normal: Reflux - None. 5. Ulnar: 5.1. Compressibility - Fully compressible: Thrombus - None: Flow - Phasic: Augmentation -Normal: Reflux - None. 6. Radial: 6.1. Compressibility - Fully compressible: Thrombus - None: Flow - Phasic: Augmentation - Normal: Reflux - None. 7. Cephalic: 7.1. Compressibility - Fully compressible: Thrombus - None: Flow - Phasic: Augmentation -Normal: Reflux - None. 8. Basilic: 8.1. Compressibility - Fully compressible: Thrombus - None: Flow - Phasic: Augmentation -Normal: Reflux - None. OTHER FINDINGS: Right: None. IMPRESSION: Right: No evidence of vein thrombosis of the right upper extremity with excellent venous flow. Normal valve function noted of the right side.
--- NOTE | 2017-08-16 16:15 | CP.PCM.PN ---
Subjective - Date & Time of Evaluation Date of Evaluation: 08/16/17 Time of Evaluation: 14:30 - Subjective Subjective: S/P LTHR POD#3 Pt seen and examined at bedside, comfortable in bed Events of PE noted Pt c/o mild left hip pian Pt denies any current SOB, chest pain, dizziness, N/V/D, numbness/tingling LLE Objective - Vital Signs/Intake and Output Vital Signs (last 24 hours): Temp Pulse Resp BP Pulse Ox 98.5 F 98 H 20 117/71 99 08/16/17 16:11 08/16/17 16:11 08/16/17 16:11 08/16/17 16:11 08/16/17 16:11 - Medications Medications: Current Medications Acetaminophen (Tylenol 325mg Tab) 325 mg PO Q4 PRN PRN Reason: pain1-3 Last Admin: 08/16/17 10:41 Dose: 325 mg Aripiprazole (Abilify) 5 mg PO DAILY [facility] Last Admin: 08/16/17 08:55 Dose: Not Given Celecoxib (Celebrex) 200 mg PO Q12 [facility] Last Admin: 08/16/17 09:27 Dose: Not Given Citalopram Hydrobromide (Celexa) 20 mg PO DAILY [facility] Last Admin: 08/16/17 08:56 Dose: Not Given Docusate Sodium (Colace) 100 mg PO BID [facility] Last Admin: 08/16/17 08:50 Dose: 100 mg Enoxaparin Sodium (Lovenox) 110 mg SC DAILY [facility] Last Admin: 08/16/17 08:49 Dose: 110 mg Gabapentin (Neurontin) 300 mg PO HS [facility] Last Admin: 08/15/17 21:42 Dose: Not Given Lidocaine (Lidoderm) 1 ea TD DAILY [facility] Last Admin: 08/16/17 13:51 Dose: 1 ea Morphine Sulfate (Morphine) 2 mg IVP Q4 PRN PRN Reason: Pain, severe (8-10) Ondansetron HCl (Zofran Odt) 4 mg PO Q8H PRN PRN Reason: Nausea/Vomiting Oxycodone/Acetaminophen (Percocet 5/325 Mg Tab) 1 tab PO Q4 PRN PRN Reason: pain4-6 Stop: 08/16/17 17:27 Last Admin: 08/16/17 04:06 Dose: 1 tab Pantoprazole Sodium (Protonix Ec Tab) 40 mg PO DAILY [facility] Last Admin: 08/16/17 08:50 Dose: 40 mg Senna/Docusate Sodium (Senokot S 50 Mg-8.6 Mg) 1 tab PO HS [facility] Last Admin: 08/15/17 21:41 Dose: 1 tab - Labs Labs: 08/16/17 04:30 08/16/17 04:30 PT 12.0 Seconds (9.8-13.1) 08/16/17 11:30 INR 1.1 (0.9-1.2) 08/16/17 11:30 APTT 34.3 Seconds (25.6-37.1) 08/16/17 11:30 - Constitutional Appears: Well, No Acute Distress - Respiratory Exam Respiratory Exam: Clear to Ausculation Bilateral, NORMAL BREATHING PATTERN - Cardiovascular Exam Cardiovascular Exam: REGULAR RHYTHM, RRR - Extremities Exam Additional comments: LLE: Hip dressing C/D/I Calves soft and nontender b/l N/V intact distally Normal ROM at ankle, no foot drop Distal pulses wnl Assessment and Plan - Assessment and Plan (Free Text) Assessment: 62 yo F s/p LTHR POD#3 Plan: DVT ppx- continue current tx for PE as per cardiology Pain Control PT/OT WBAT LLE Hip abduction pillow Posterior hip precautions Continue current management Discussed with Dr. Pfeiffer
[2017-08-16] MEDS: Docusate-Senna 50 mg-8.6 mg Tab PO SCH (21:12)
--- NOTE | 2017-08-17 06:24 | CARD ---
APPROVED REPORT EXAM: Two-dimensional and M-mode echocardiogram with Doppler and color Doppler. Other Information Quality : Technically LimitedRhythm : NSR Technically limited study due to patient just had hip surgery INDICATION Pulmonary Embolism 2D DIMENSIONS Left Atrium (2D)3.04 (1.6-4.0cm)IVSd1.11 (0.7-1.1cm) Aortic Root (2D)3.00 (2.0-3.7cm)LVDd4.18 (3.9-5.9cm) LVOT Diameter2.18 (1.8-2.4cm)PWd0.96 (0.7-1.1cm) IVSs1.41 (0.8-1.2cm)LVDs3.25 (2.5-4.0cm) FS (%) 22.4 %PWs0.75 (0.8-1.2cm) M-Mode DIMENSIONS RVDd3.95 (2.1-3.2cm)Left Atrium (MM)3.16 (2.5-4.0cm) IVSd0.89 (0.7-1.1cm)Aortic Root3.02 (2.2-3.7cm) LVDd3.98 (4.0-5.6cm)Aortic Cusp Exc.1.53 (1.5-2.0cm) PWd0.92 (0.7-1.1cm)IVSs1.14 cm FS (%) 30 %LVDs2.77 (2.0-3.8cm) PWs1.10 cm Mitral Valve MV E Noangzza27.1cm/sMV DECEL [id number] A Zaoakbje66.4cm/s MV [id number]/A ratio0.8MVA (PHT)4.47cm2 TDI Lateral E' Peak V10.92cm/sMedial E' Peak V12.22cm/sE/Lateral E'5.7 E/Medial E'5.1 LEFT VENTRICLE The left ventricle is normal size. There is normal left ventricular wall thickness. The left ventricular function is normal. The left ventricular ejection fraction is 60% There is normal LV segmental wall motion. The left ventricular diastolic function is normal. No left ventricle thrombus noted on this study. There is no ventricular septal defect visualized. There is no left ventricular aneurysm. There is no mass noted in the left ventricle. RIGHT VENTRICLE The right ventricle is normal size. There is normal right ventricular wall thickness. The right ventricular systolic function is normal. ATRIA The left atrium size is normal. The right atrium size is normal. The interatrial septum is intact with no evidence for an atrial septal defect. AORTIC VALVE The aortic valve is normal in structure and function. No aortic regurgitation is present. There is no aortic valvular stenosis. There is no aortic valvular vegetation. MITRAL VALVE The mitral valve is normal in structure and function. There is no evidence of mitral valve prolapse. There is no mitral valve stenosis. There is no mitral valve regurgitation noted. TRICUSPID VALVE The tricuspid valve is normal in structure and function. There is no tricuspid valve regurgitation noted. There is no tricuspid valve prolapse or vegetation. There is no tricuspid valve stenosis. PULMONIC VALVE The pulmonary valve is normal in structure and function. There is no pulmonic valvular regurgitation. There is no pulmonic valvular stenosis. GREAT VESSELS The aortic root is normal in size. The ascending aorta is normal in size. The IVC is normal in size and collapses >50% with inspiration. PERICARDIAL EFFUSION The pericardium appears normal. There is no pleural effusion. <Conclusion> Normal Echocardiogram
--- NOTE | 2017-08-17 06:38 | CARD ---
APPROVED REPORT EKG Measurement Heart [id number] <Conclusion> Normal sinus rhythm Normal ECG
[2017-08-17 07:30] LABS: BASO % 0.2 % (0.0-2.0); EOS % 0.2 % (0.0-4.0); LYMPH # 2.3 K/uL (1.0-4.3); LYMPH % 29.4 % (20.0-40.0); MEAN CORPUSCULAR HEMOGLOBIN 32.9 pg (27.0-31.0); MEAN CORPUSCULAR HGB CONC 35.8 g/dL (33.0-37.0); MEAN PLATELET VOLUME 8.2 fl (7.2-11.7); MONO # 0.7 K/uL (0.0-0.8); MONO % 9.1 % (0.0-10.0); NEUT # 4.7 K/uL (1.8-7.0); NEUT % 61.1 % (50.0-75.0); NRBC % 0.1 % (0.0-0.0); WHITE BLOOD COUNT 7.7 K/uL (4.8-10.8)
[2017-08-17 07:32] LABS: BLOOD UREA NITROGEN 8 mg/dl (7-17); CALCIUM 8.2 mg/dL (8.4-10.2); CARBON DIOXIDE 28 mmol/L (22-30); CHLORIDE 102 mmol/L (98-107); GFR AFRICAN-AMERICAN > 60; GLUCOSE,RANDOM 123 mg/dL (65-105); POTASSIUM 3.3 MMOL/L (3.6-5.0); SODIUM 138 mmol/l (132-148)
[2017-08-17] MEDS: Pantoprazole 40 mg EC Tab PO SCH (09:21)
[2017-08-17] MEDS: Lidocaine 5% Patch TD SCH (09:21)
[2017-08-17] MEDS: Enoxaparin 120 mg Syringe SC SCH (10:00)
--- NOTE | 2017-08-17 10:06 | CP.PCM.PN ---
Subjective - Date & Time of Evaluation Date of Evaluation: 08/17/17 Time of Evaluation: 08:00 - Subjective Subjective: CC: POD 4 s/p left THR, s/p multifocal small branch pulmonary emboli in the right upper and lower lobes Interim events: Received some PT yesterday, increased HR >100s during therapy, no chest pain, SOB, dizziness at that time. Patient was started on a beta caitlyn to control her HR but she refused the medication due to ''possible side effects'' per patient. Patient appears to be resting comfortably in her bed and is AAOx3. Patient is in no acute distress. Patient denies of any problems with breathing or chest pain. Some pain in left arm, continues. pt. aware that left UE duplex negative for DVT. Patient denies of any F/N/V/C/SOB today. Patient denies any other complaints at this time. Objective - Vital Signs/Intake and Output Vital Signs (last 24 hours): Temp Pulse Resp BP Pulse Ox 98.2 F 101 H 18 100/68 100 08/17/17 09:04 08/17/17 09:20 08/17/17 09:04 08/17/17 09:20 08/17/17 08:59 - Medications Medications: Current Medications Acetaminophen (Tylenol 325mg Tab) 325 mg PO Q4 PRN PRN Reason: pain1-3 Last Admin: 08/17/17 08:04 Dose: 325 mg Aripiprazole (Abilify) 5 mg PO DAILY [facility] Last Admin: 08/17/17 09:20 Dose: 5 mg Celecoxib (Celebrex) 200 mg PO Q12 [facility] Last Admin: 08/17/17 09:20 Dose: 200 mg Citalopram Hydrobromide (Celexa) 20 mg PO DAILY [facility] Last Admin: 08/17/17 09:20 Dose: 20 mg Enoxaparin Sodium (Lovenox) 110 mg SC DAILY [facility] Last Admin: 08/17/17 10:00 Dose: 110 mg Gabapentin (Neurontin) 300 mg PO HS [facility] Last Admin: 08/17/17 01:50 Dose: Not Given Lidocaine (Lidoderm) 2 ea TD DAILY [facility] Last Admin: 08/17/17 09:21 Dose: 2 ea Metoprolol Tartrate (Lopressor) 25 mg PO Q12 [facility] Last Admin: 08/17/17 09:20 Dose: Not Given Morphine Sulfate (Morphine) 2 mg IVP Q4 PRN PRN Reason: Pain, severe (8-10) Ondansetron HCl (Zofran Odt) 4 mg PO Q8H PRN PRN Reason: Nausea/Vomiting Oxycodone/Acetaminophen (Percocet 5/325 Mg Tab) 1 tab PO Q4 PRN PRN Reason: Pain, moderate (4-7) Stop: 08/17/17 21:11 Last Admin: 08/16/17 21:34 Dose: 1 tab Pantoprazole Sodium (Protonix Ec Tab) 40 mg PO DAILY [facility] Last Admin: 08/17/17 09:21 Dose: 40 mg Senna/Docusate Sodium (Senokot S 50 Mg-8.6 Mg) 1 tab PO HS [facility] Last Admin: 08/16/17 21:12 Dose: 1 tab - Labs Labs: 08/17/17 06:00 08/17/17 06:00 PT 12.0 Seconds (9.8-13.1) 08/16/17 11:30 INR 1.1 (0.9-1.2) 08/16/17 11:30 APTT 34.3 Seconds (25.6-37.1) 08/16/17 11:30 - Constitutional Appears: Well, Non-toxic, No Acute Distress - Head Exam Head Exam: ATRAUMATIC - Eye Exam Eye Exam: EOMI Pupil Exam: PERRL - ENT Exam ENT Exam: Mucous Membranes Moist - Neck Exam Neck Exam: Full ROM - Respiratory Exam Respiratory Exam: Clear to Ausculation Bilateral. absent: Rhonchi, Wheezes, Respiratory Distress - Cardiovascular Exam Cardiovascular Exam: +S1, +S2 - GI/Abdominal Exam GI & Abdominal Exam: Soft, Normal Bowel Sounds. absent: Tenderness - Extremities Exam Extremities Exam: absent: Calf Tenderness, Pedal Edema, Tenderness Additional comments: Left hip: dressing in place, clean dressing, not soaked incision: c/d/i - Neurological Exam Neurological Exam: Alert, Awake, Oriented x3 - Psychiatric Exam Psychiatric exam: Anxious, Normal Affect - Skin Skin Exam: Dry, Normal Color, Warm Assessment and Plan - Assessment and Plan (Free Text) Plan: 62 y/o female with PMHx of HTN, Depression, OA b/l hips, prediabetes, POD 4 s/ p left THR and s/p pulmonary embolism Pulmonary Embolism - Enoxaparin 110 mg qd ( 1.5 mg/kg/day, therapeutic dose for PE) - SCDs - CT angio chest ordered (08/15): Multifocal small branch pulmonary emboli are identified in the right upper and lower lobes. No left sided pulmonary emboli identified. No large pulmonary artery emboli are identified including the main pulmonary artery and main right and left branches. - Immediate dose of Enoxaparin 110 mg was given SC (08/15), prior to CTA results due to high clinical suspicion of PE - Bilateral lower extremity duplex (08/15): No evidence of deep venous thrombosis - Left upper extremity venous duplex ordered : no UE DVT present - Ortho recommends IVC filter placement - Hematology recommendations appreciated: Patient will need to continue the lovenox for 6 months. If the patient cannot tolerate the anticoagulant or if she has any bleeding with anticoagulant, then IVC filter will be needed - as per Dr. Wilson - IR recommendations appreciated - EKG ordered(08/16): NSR; continuous cardiac monitoring on telemetry - Echo ordered (08/15) - normal echo, EF 60% approx - Troponin levels - negative - Factor 5, Protein C and S, DINO, Antiphospholipid, MTHFR, PT/INR and PTT labs - pending Osteoarthritis of hips, bilateral POD 4 s/p L-THR with plans to do the right side in the future. Pain well- controlled. - Ortho management for PT/abx/pain control - Patient is followed by physical therapy Depression/Anxiety - Home meds: Celexa, Abilify - patient has been refusing to take her psych meds DVT Ppx - patient on therapeutic lovenox Diet -Regular
--- NOTE | 2017-08-17 10:48 | CP.PCM.PN ---
Subjective - Date & Time of Evaluation Date of Evaluation: 08/17/17 Time of Evaluation: 10:47 - Subjective Subjective: Pt still c/o some left sided chest discomfort, but no actual pain or shoertness of breath. Her HGB which was 9.3 yesterday is 8.2 today. have started her on iron po tid along with a stool softner. Wi keep an eye on the cbc. No evidence of bleeding from the wound. Continue to treat her with lovenox for the PE. Objective - Vital Signs/Intake and Output Vital Signs (last 24 hours): Temp Pulse Resp BP Pulse Ox 98.2 F 101 H 18 100/68 100 08/17/17 09:04 08/17/17 09:20 08/17/17 09:04 08/17/17 09:20 08/17/17 08:59 - Medications Medications: Current Medications Acetaminophen (Tylenol 325mg Tab) 325 mg PO Q4 PRN PRN Reason: pain1-3 Last Admin: 08/17/17 08:04 Dose: 325 mg Aripiprazole (Abilify) 5 mg PO DAILY [facility] Last Admin: 08/17/17 09:20 Dose: Not Given Celecoxib (Celebrex) 200 mg PO Q12 [facility] Last Admin: 08/17/17 09:20 Dose: Not Given Citalopram Hydrobromide (Celexa) 20 mg PO DAILY [facility] Last Admin: 08/17/17 09:20 Dose: Not Given Enoxaparin Sodium (Lovenox) 110 mg SC DAILY [facility] Last Admin: 08/17/17 10:00 Dose: 110 mg Gabapentin (Neurontin) 300 mg PO HS [facility] Last Admin: 08/17/17 01:50 Dose: Not Given Lidocaine (Lidoderm) 2 ea TD DAILY [facility] Last Admin: 08/17/17 09:21 Dose: 2 ea Metoprolol Tartrate (Lopressor) 25 mg PO Q12 [facility] Last Admin: 08/17/17 09:20 Dose: Not Given Morphine Sulfate (Morphine) 2 mg IVP Q4 PRN PRN Reason: Pain, severe (8-10) Ondansetron HCl (Zofran Odt) 4 mg PO Q8H PRN PRN Reason: Nausea/Vomiting Oxycodone/Acetaminophen (Percocet 5/325 Mg Tab) 1 tab PO Q4 PRN PRN Reason: Pain, moderate (4-7) Stop: 08/17/17 21:11 Last Admin: 08/16/17 21:34 Dose: 1 tab Pantoprazole Sodium (Protonix Ec Tab) 40 mg PO DAILY [facility] Last Admin: 08/17/17 09:21 Dose: 40 mg Senna/Docusate Sodium (Senokot S 50 Mg-8.6 Mg) 1 tab PO HS [facility] Last Admin: 08/16/17 21:12 Dose: 1 tab - Labs Labs: 08/17/17 06:00 08/17/17 06:00 PT 12.0 Seconds (9.8-13.1) 08/16/17 11:30 INR 1.1 (0.9-1.2) 08/16/17 11:30 APTT 34.3 Seconds (25.6-37.1) 08/16/17 11:30
[2017-08-17] MEDS ORDERED: Docusate-Senna 50 mg-8.6 mg Tab PO ONE (14:47)
--- NOTE | 2017-08-17 15:14 | RAD ---
PROCEDURE: Radiographs of the Left Shoulder HISTORY: left shoulder pain COMPARISON: No prior. FINDINGS: BONES: Two views of the left shoulder were performed. No acute fracture is seen. Degenerative changes of the left shoulder are appreciated. This would include glenohumeral spurring. No lytic process is seen. No definite dislocation is noted. No calcific bursitis is seen. JOINTS: AC joint degenerative change and mild spurring are noted. SOFT TISSUES: Normal. OTHER FINDINGS: None. IMPRESSION: No fracture or dislocation clearly seen. Glenohumeral degenerative changes.
[2017-08-17] MEDS: Potassium Chloride 20 mEq ER Tab PO SCH (15:18)
[2017-08-17] MEDS: Bacitracin 500 Units/gm Oint Foilpak UD TOP SCH ×2 (15:19→16:44)
[2017-08-17] MEDS: Oxycodone/Acetaminophen 5/325 mg Tab PO PRN (20:12)
[2017-08-17] MEDS: Docusate-Senna 50 mg-8.6 mg Tab PO SCH (22:30)
[2017-08-18] MEDS: Oxycodone/Acetaminophen 5/325 mg Tab PO PRN ×2 (07:00→21:14)
[2017-08-18] MEDS: Bacitracin 500 Units/gm Oint Foilpak UD TOP SCH ×3 (09:51→17:57)
[2017-08-18] MEDS: Enoxaparin 120 mg Syringe SC SCH (09:52)
[2017-08-18] MEDS: Potassium Chloride 20 mEq ER Tab PO SCH (09:54)
[2017-08-18] MEDS: Lidocaine 5% Patch TD SCH (09:55)
[2017-08-18] MEDS: Pantoprazole 40 mg EC Tab PO SCH (09:56)
--- NOTE | 2017-08-18 10:31 | CP.PCM.PN ---
Subjective - Date & Time of Evaluation Date of Evaluation: 08/18/17 Time of Evaluation: 08:00 - Subjective Subjective: CC: POD 5 s/p left THR, s/p multifocal small branch pulmonary emboli in the right upper and lower lobes Patient appears to be resting comfortably in her bed and is AAOx3. Patient is in no acute distress. Patient denies of any problems with breathing or chest pain. No arm pain this AM. Patient denies of any F/N/V/C/SOB today. Patient denies any other complaints at this time. Objective - Vital Signs/Intake and Output Vital Signs (last 24 hours): Temp Pulse Resp BP Pulse Ox 98.4 F 93 H 18 95/59 L 98 08/18/17 08:00 08/18/17 08:00 08/18/17 08:00 08/18/17 08:00 08/18/17 08:00 Intake and Output: 08/18/17 08/18/17 06:59 18:59 Output Total 250 Balance -250 - Medications Medications: Current Medications Acetaminophen (Tylenol 325mg Tab) 325 mg PO Q4 PRN PRN Reason: pain1-3 Last Admin: 08/17/17 08:04 Dose: 325 mg Aripiprazole (Abilify) 5 mg PO DAILY [facility] Last Admin: 08/18/17 09:57 Dose: Not Given Bacitracin (Bacitracin) 1 ea TOP TID [facility] Last Admin: 08/18/17 09:51 Dose: 1 ea Celecoxib (Celebrex) 200 mg PO Q12 [facility] Last Admin: 08/18/17 09:52 Dose: Not Given Citalopram Hydrobromide (Celexa) 20 mg PO DAILY [facility] Last Admin: 08/18/17 10:02 Dose: Not Given Enoxaparin Sodium (Lovenox) 110 mg SC DAILY [facility] Last Admin: 08/18/17 09:52 Dose: 110 mg Ferrous Sulfate (Feosol) 325 mg PO BID [facility] Last Admin: 08/18/17 09:54 Dose: 325 mg Gabapentin (Neurontin) 300 mg PO HS [facility] Last Admin: 08/17/17 22:15 Dose: Not Given Lidocaine (Lidoderm) 2 ea TD DAILY [facility] Last Admin: 08/18/17 09:55 Dose: 2 ea Morphine Sulfate (Morphine) 2 mg IVP Q4 PRN PRN Reason: Pain, severe (8-10) Ondansetron HCl (Zofran Odt) 4 mg PO Q8H PRN PRN Reason: Nausea/Vomiting Oxycodone/Acetaminophen (Percocet 5/325 Mg Tab) 1 tab PO Q4 PRN PRN Reason: Pain, moderate (4-7) Stop: 08/21/17 06:53 Last Admin: 08/18/17 07:00 Dose: 1 tab Pantoprazole Sodium (Protonix Ec Tab) 40 mg PO DAILY [facility] Last Admin: 08/18/17 09:56 Dose: 40 mg Potassium Chloride (K-Dur 20 Meq Er Tab) 40 meq PO DAILY [facility] Last Admin: 08/18/17 09:54 Dose: 40 meq Senna/Docusate Sodium (Senokot S 50 Mg-8.6 Mg) 1 tab PO HS [facility] Last Admin: 08/17/17 22:30 Dose: 1 tab - Labs Labs: 08/17/17 06:00 08/17/17 06:00 PT 12.0 Seconds (9.8-13.1) 08/16/17 11:30 INR 1.1 (0.9-1.2) 08/16/17 11:30 APTT 34.3 Seconds (25.6-37.1) 08/16/17 11:30 - Constitutional Appears: No Acute Distress - Head Exam Head Exam: ATRAUMATIC - Eye Exam Eye Exam: EOMI - ENT Exam ENT Exam: Mucous Membranes Moist - Respiratory Exam Respiratory Exam: Clear to Ausculation Bilateral - Cardiovascular Exam Cardiovascular Exam: +S1, +S2 - GI/Abdominal Exam GI & Abdominal Exam: Soft. absent: Tenderness - Extremities Exam Additional comments: left hip: dressing aquaseal dressing in place. - Neurological Exam Neurological Exam: Alert, Awake, Oriented x3 - Psychiatric Exam Psychiatric exam: Anxious, Normal Affect - Skin Skin Exam: Dry, Normal Color, Warm Assessment and Plan - Assessment and Plan (Free Text) Plan: 62 y/o female with PMHx of HTN, Depression, OA b/l hips, prediabetes, POD 5 s/ p left THR and s/p pulmonary embolism Anemia post op, likely 2/2 blood loss hgb 9.3>8.2> h/h today pending will continue to follow Fe sulfate TID PO for now per heme Pulmonary Embolism - Enoxaparin 110 mg qd ( 1.5 mg/kg/day, therapeutic dose for PE) - SCDs - CT angio chest ordered (08/15): Multifocal small branch pulmonary emboli are identified in the right upper and lower lobes. No left sided pulmonary emboli identified. No large pulmonary artery emboli are identified including the main pulmonary artery and main right and left branches. - Immediate dose of Enoxaparin 110 mg was given SC (08/15), prior to CTA results due to high clinical suspicion of PE - Bilateral lower extremity duplex (08/15): No evidence of deep venous thrombosis - Left upper extremity venous duplex ordered : no UE DVT present - Ortho recommends IVC filter placement - Hematology recommendations appreciated: Patient will need to continue the lovenox for 6 months. If the patient cannot tolerate the anticoagulant or if she has any bleeding with anticoagulant, then IVC filter will be needed - as per Dr. Wilson - IR recommendations appreciated - EKG ordered(08/16): NSR; continuous cardiac monitoring on telemetry - Echo ordered (08/15) - normal echo, EF 60% approx - Troponin levels - negative - Factor 5, Protein C and S, DINO, Antiphospholipid, MTHFR, PT/INR and PTT labs - pending Osteoarthritis of hips, bilateral POD 5 s/p L-THR with plans to do the right side in the future. Pain well- controlled. - Ortho management for PT/abx/pain control - Patient is followed by physical therapy Depression/Anxiety - Home meds: Celexa, Abilify - patient has been refusing to take her psych meds DVT Ppx - patient on therapeutic lovenox Diet -Regular
[2017-08-18 11:08] LABS: MEAN CELL VOLUME 93.4 fl (81.0-99.0); MEAN CORPUSCULAR HEMOGLOBIN 32.8 pg (27.0-31.0); MEAN CORPUSCULAR HGB CONC 35.1 g/dL (33.0-37.0); RED CELL DISTRIBUTION WIDTH 12.8 % (11.5-14.5); WHITE BLOOD COUNT 6.4 K/uL (4.8-10.8)
--- NOTE | 2017-08-18 19:48 | PN ---
DATE: 08/18/2017 SUBJECTIVE: Patient is currently comfortable. Patient had an episode of syncope. Patient had an episode of dizziness and underwent a spiral CT, which showed pulmonary embolism, has been started on therapeutic Lovenox dose. Patient today had a drop in hemoglobin of 7.4 and hematocrit of 21.0 currently. She was evaluated at bedside, not in acute distress. Denies any shortness of breath. OBJECTIVE: VITAL SIGNS: Patient is afebrile at 98.3, pulse rate of 97, blood pressure of 108/70. Patient's dressings taken down. There is serous drainage. The wound site is clean, dry, and intact. New dressings applied. Patient is neurovascularly intact distally. ASSESSMENT AND PLAN: Patient is postoperative day #5 status post left total hip replacement with a pulmonary embolism. TREATMENT: I updated the patient that I will speak with Dr. Wilson regarding therapeutic Lovenox dosage. She will remain weightbearing as tolerated with posterior hip precautions. Patient is currently to be transfused with 1 unit of blood to advance her drop of hemoglobin and continue medical care and follow up labs after transfusion. Claudia Pfeiffer MD
[2017-08-18] MEDS: Docusate-Senna 50 mg-8.6 mg Tab PO SCH (21:59)
[2017-08-19 04:08] LABS: CARDIOLIPIN AB (IGA) <11 APL (<=11); PHOSPHATIDYLSERINE AB IGM <25 U/mL (<25)
[2017-08-19 05:28] LABS: MEAN CELL VOLUME 91.8 fl (81.0-99.0); MEAN CORPUSCULAR HGB CONC 33.8 g/dL (33.0-37.0); WHITE BLOOD COUNT 7.8 K/uL (4.8-10.8)
[2017-08-19 06:53] LABS: B2 GLYCOPROTEIN I AB(IGA) <9 SAU (<=20); B2 GLYCOPROTEIN I AB(IGG) <9 SGU (<=20); B2 GLYCOPROTEIN I AB(IGM) <9 SMU (<=20); PHOSPHATIDYLSERINE AB IGA <20 U/mL (<20)
[2017-08-19] MEDS: Bacitracin 500 Units/gm Oint Foilpak UD TOP SCH ×3 (08:30→16:22)
[2017-08-19] MEDS: Lidocaine 5% Patch TD SCH (08:33)
[2017-08-19] MEDS: Potassium Chloride 20 mEq ER Tab PO SCH (08:33)
[2017-08-19] MEDS: Enoxaparin 80 mg Syringe SC SCH (08:34)
[2017-08-19] MEDS: Pantoprazole 40 mg EC Tab PO SCH (08:35)
--- NOTE | 2017-08-19 10:14 | CP.PCM.PN ---
Subjective - Date & Time of Evaluation Date of Evaluation: 08/19/17 Time of Evaluation: 07:15 - Subjective Subjective: POD#6 s/p left THR, complicated with multifocal small branch PE in RUL and RLL. Pt seen and examined at bedside this morning. S/P 1 unit PRBC transfusion. No acute events overnight. Afebrile. Pt lying in bed comfortably, NAD. Mild pain, controlled with medications. Currently denying Left arm pain this morning, and reports sleeping well overall. No new complaints. Denies fever/chills, headaches , changes in vision, CP/SOB/palpitations, N/V/D/C, urinary symptoms, numbness/ tingling. Objective - Vital Signs/Intake and Output Vital Signs (last 24 hours): Temp Pulse Resp BP Pulse Ox 98.8 F 109 H 20 115/80 100 08/19/17 09:00 08/19/17 09:00 08/19/17 09:00 08/19/17 09:00 08/19/17 09:00 Intake and Output: 08/19/17 08/19/17 06:59 18:59 Intake Total 1200 Output Total 200 Balance 1000 - Medications Medications: Current Medications Acetaminophen (Tylenol 325mg Tab) 325 mg PO Q4 PRN PRN Reason: pain1-3 Last Admin: 08/17/17 08:04 Dose: 325 mg Alprazolam (Xanax) 0.5 mg PO Q8 PRN PRN Reason: Anxiety Last Admin: 08/18/17 17:53 Dose: 0.5 mg Aripiprazole (Abilify) 5 mg PO DAILY [facility] Last Admin: 08/19/17 08:29 Dose: Not Given Bacitracin (Bacitracin) 1 ea TOP TID [facility] Last Admin: 08/19/17 08:30 Dose: 1 ea Celecoxib (Celebrex) 200 mg PO Q12 [facility] Last Admin: 08/19/17 08:32 Dose: Not Given Citalopram Hydrobromide (Celexa) 20 mg PO DAILY [facility] Last Admin: 08/19/17 08:32 Dose: Not Given Enoxaparin Sodium (Lovenox) 70 mg SC DAILY [facility] Last Admin: 08/19/17 08:34 Dose: 70 mg Ferrous Sulfate (Feosol) 325 mg PO BID [facility] Last Admin: 08/19/17 08:32 Dose: 325 mg Gabapentin (Neurontin) 300 mg PO HS [facility] Last Admin: 08/18/17 21:11 Dose: Not Given Lidocaine (Lidoderm) 2 ea TD DAILY [facility] Last Admin: 08/19/17 08:33 Dose: 2 ea Morphine Sulfate (Morphine) 2 mg IVP Q4 PRN PRN Reason: Pain, severe (8-10) Ondansetron HCl (Zofran Odt) 4 mg PO Q8H PRN PRN Reason: Nausea/Vomiting Oxycodone/Acetaminophen (Percocet 5/325 Mg Tab) 1 tab PO Q4 PRN PRN Reason: Pain, moderate (4-7) Stop: 08/21/17 06:53 Last Admin: 08/18/17 21:14 Dose: 1 tab Pantoprazole Sodium (Protonix Ec Tab) 40 mg PO DAILY [facility] Last Admin: 08/19/17 08:35 Dose: 40 mg Potassium Chloride (K-Dur 20 Meq Er Tab) 40 meq PO DAILY [facility] Last Admin: 08/19/17 08:33 Dose: 40 meq Senna/Docusate Sodium (Senokot S 50 Mg-8.6 Mg) 1 tab PO HS [facility] Last Admin: 08/18/17 21:59 Dose: 1 tab - Labs Labs: 08/19/17 04:20 08/17/17 06:00 PT 12.0 Seconds (9.8-13.1) 08/16/17 11:30 INR 1.1 (0.9-1.2) 08/16/17 11:30 APTT 34.3 Seconds (25.6-37.1) 08/16/17 11:30 - Constitutional Appears: Non-toxic, No Acute Distress - Head Exam Head Exam: ATRAUMATIC - Eye Exam Eye Exam: EOMI. absent: Conjunctival injection Pupil Exam: PERRL - ENT Exam ENT Exam: Mucous Membranes Moist - Respiratory Exam Respiratory Exam: Clear to Ausculation Bilateral, NORMAL BREATHING PATTERN. absent: Decreased Breath Sounds, Rales, Rhonchi, Wheezes - Cardiovascular Exam Cardiovascular Exam: REGULAR RHYTHM, RRR, +S1, +S2. absent: Tachycardia, JVD, Rubs, Murmur - GI/Abdominal Exam GI & Abdominal Exam: Soft, Normal Bowel Sounds. absent: Tenderness - Extremities Exam Extremities Exam: Normal Inspection, Tenderness (lisseth-incisional tenderness). absent: Calf Tenderness (homans negative b/l, no erythema b/l), Pedal Edema Additional comments: incision site: C/D/I, no drainage appreciated today - Neurological Exam Neurological Exam: Alert, Awake, CN II-XII Intact, Oriented x3 - Psychiatric Exam Psychiatric exam: Normal Affect, Normal Mood - Skin Skin Exam: Dry, Intact, Normal Color, Warm Assessment and Plan - Assessment and Plan (Free Text) Assessment: 62 y/o female with PMHx of HTN, Depression, OA b/l hips, prediabetes, POD#6 s/ p left THR and s/p pulmonary embolism Plan: 1)Anemia (post-procedural) (improving) -likely secondary to blood loss -s/p 1 unit PRBC transfusion -CBC on 08/19: 7.8>8.1/24.0<236, improved from 08/18: 7.4/21.0 -Fe sulfate TID PO for now per heme f/u Iron studies 2)Pulmonary Embolism - Enoxaparin 70mg (1mg/kg) as per Hematology - CT angio chest (08/15): Multifocal small branch pulmonary emboli are identified in the right upper and lower lobes. No left sided pulmonary emboli identified. No large pulmonary artery emboli are identified including the main pulmonary artery and main right and left branches. - Immediate dose of Enoxaparin 110 mg was given SC (08/15), prior to CTA results due to high clinical suspicion of PE - Bilateral lower extremity duplex (08/15): No evidence of deep venous thrombosis - Left upper extremity venous duplex ordered : no UE DVT present - Ortho recommends IVC filter placement - Hematology recommendations appreciated: Patient will need to continue the lovenox for 6 months. If the patient cannot tolerate the anticoagulant or if she has any bleeding with anticoagulant, then IVC filter will be needed - as per Dr. Wilson - IR recommendations appreciated - EKG ordered(08/16): NSR; continuous cardiac monitoring on telemetry - Echo ordered (08/15) - normal echo, EF 60% approx - Troponin levels - negative - Factor 5, Protein C and S, DINO, Antiphospholipid, MTHFR, PT/INR and PTT labs: all negative or WNL respectively 3) Left Shoulder/arm pain -left shoulder Xray: positive for degenerative disease, no fracture/abnormality -u/s: negative for DVT -consult with physiatry, Dr. Figueroa for possible EMG appreciated 4) S/P Left THR secondary to Hip OA POD#6 -ortho currently on board, following pt -Pain well-controlled. -dressing changed 08/18 -Patient is followed by physical therapy 5) Depression/Anxiety -c/w home meds: Celexa, Abilify -ativan PRN -patient has been refusing to take her home psych meds 6) Prophylactic Measure: -patient on therapeutic Lovenox as above -SCDs
--- NOTE | 2017-08-19 12:08 | CP.PCM.PN ---
Subjective - Date & Time of Evaluation Date of Evaluation: 08/19/17 Time of Evaluation: 11:48 - Subjective Subjective: Over the weekend pt's hgb dropped to 7.5 gms and she had some bleeding freom the surgical site. She was transfused 2 units of packed cells and her hgb is 8.1gms today and there is no bleeding from the surgical site.She no longer has any pain in the chest, but she still c/o some shortness of breath. She is very anxious and did well when she was given a tranquilizer yesterday. The lovenox was decreased to 1 mg/kg.and she seems to be stable. She was started on po iron tid and i have told her to eat food rich in iron. Will discuss with her about starting IV iron. Monitor cbc Objective - Vital Signs/Intake and Output Vital Signs (last 24 hours): Temp Pulse Resp BP Pulse Ox 98.8 F 109 H 20 115/80 100 08/19/17 09:00 08/19/17 09:00 08/19/17 09:00 08/19/17 09:00 08/19/17 09:00 Intake and Output: 08/19/17 08/19/17 06:59 18:59 Intake Total 1200 240 Output Total 200 300 Balance 1000 -60 - Medications Medications: Current Medications Acetaminophen (Tylenol 325mg Tab) 325 mg PO Q4 PRN PRN Reason: pain1-3 Last Admin: 08/17/17 08:04 Dose: 325 mg Alprazolam (Xanax) 0.5 mg PO Q8 PRN PRN Reason: Anxiety Last Admin: 08/18/17 17:53 Dose: 0.5 mg Aripiprazole (Abilify) 5 mg PO DAILY [facility] Last Admin: 08/19/17 08:29 Dose: Not Given Bacitracin (Bacitracin) 1 ea TOP TID [facility] Last Admin: 08/19/17 08:30 Dose: 1 ea Celecoxib (Celebrex) 200 mg PO Q12 [facility] Last Admin: 08/19/17 08:32 Dose: Not Given Citalopram Hydrobromide (Celexa) 20 mg PO DAILY [facility] Last Admin: 08/19/17 08:32 Dose: Not Given Enoxaparin Sodium (Lovenox) 70 mg SC DAILY [facility] Last Admin: 08/19/17 08:34 Dose: 70 mg Ferrous Sulfate (Feosol) 325 mg PO BID [facility] Last Admin: 08/19/17 08:32 Dose: 325 mg Gabapentin (Neurontin) 300 mg PO HS [facility] Last Admin: 08/18/17 21:11 Dose: Not Given Lidocaine (Lidoderm) 2 ea TD DAILY [facility] Last Admin: 08/19/17 08:33 Dose: 2 ea Morphine Sulfate (Morphine) 2 mg IVP Q4 PRN PRN Reason: Pain, severe (8-10) Ondansetron HCl (Zofran Odt) 4 mg PO Q8H PRN PRN Reason: Nausea/Vomiting Oxycodone/Acetaminophen (Percocet 5/325 Mg Tab) 1 tab PO Q4 PRN PRN Reason: Pain, moderate (4-7) Stop: 08/21/17 06:53 Last Admin: 08/18/17 21:14 Dose: 1 tab Pantoprazole Sodium (Protonix Ec Tab) 40 mg PO DAILY [facility] Last Admin: 08/19/17 08:35 Dose: 40 mg Potassium Chloride (K-Dur 20 Meq Er Tab) 40 meq PO DAILY [facility] Last Admin: 08/19/17 08:33 Dose: 40 meq Senna/Docusate Sodium (Senokot S 50 Mg-8.6 Mg) 1 tab PO HS [facility] Last Admin: 08/18/17 21:59 Dose: 1 tab - Labs Labs: 08/19/17 04:20 08/17/17 06:00 PT 12.0 Seconds (9.8-13.1) 08/16/17 11:30 INR 1.1 (0.9-1.2) 08/16/17 11:30 APTT 34.3 Seconds (25.6-37.1) 08/16/17 11:30
--- NOTE | 2017-08-19 13:36 | PQF GENQUE ---
Dr. Alford, 2 (two) queries as follows: Please provide specificity regarding pulmonary embolism: 1. Acuity: Acute Chronic Acute on chronic Unknown Other (please specify) OR: Clinically unable to determine 2. Cause: Complication of surgical and/or medical care Due to trauma Postoperative Other (please specify) Clinically unable to determine Unknown Hematology note: Assessment:Impression; Pulmonary embolism following a left hip replacement. Plan; I feel pt should be on lovenox because it is important to treat her for the thomboembolic event. She has no previous h/o bleeding and I feel it can be given safely as long as we keep an eye on the hip joint for any bleeding. She will need to continue the lovenox for 6 months. This form is a permanent part of the medical record Clarification of your documentation is requested to better reflect the severity of illness and intensity of treatment of your patient. Indicators present [] Specify: [] [] Specify: [] [] Specify: [] [] Specify: [] Location in the medical record that reflects the above clinical findings: [] Treatment Provided: [] PHYSICIAN'S RESPONSE Based on your medical judgment of the clinical indicators outlined above please clarify the following: [] Practitioner response [] If unable to determine, please check the box, sign and date. Present On Admission (POA) Indicator: [] Present at the time of admission [] Not present at the time of admission [] Clinically Undetermined In responding to this query, please exercise your independent professional judgment. The fact that a question is asked does not imply that any particular answer is desired or expected. Thank you for your clarification on this documentation. If you have any questions please call. * Thank you, Janice Mead RN ext. #[phone]: Lyssa Ahuja RN [email or web address]
[2017-08-19] MEDS: Oxycodone/Acetaminophen 5/325 mg Tab PO PRN ×2 (16:20→22:42)
[2017-08-19 19:35] LABS: IRON 25 ug/dL (37-170)
[2017-08-19] MEDS: Docusate-Senna 50 mg-8.6 mg Tab PO SCH (21:40)
[2017-08-20 05:46] LABS: BASO % 0.4 % (0.0-2.0); EOS # 0.1 K/uL (0.0-0.7); EOS % 1.1 % (0.0-4.0); HEMATOCRIT 23.3 % (34.0-47.0); LYMPH # 2.2 K/uL (1.0-4.3); LYMPH % 30.6 % (20.0-40.0); MEAN CELL VOLUME 92.3 fl (81.0-99.0); MEAN CORPUSCULAR HEMOGLOBIN 31.8 pg (27.0-31.0); MEAN CORPUSCULAR HGB CONC 34.4 g/dL (33.0-37.0); MEAN PLATELET VOLUME 7.3 fl (7.2-11.7); MONO # 0.8 K/uL (0.0-0.8); MONO % 10.6 % (0.0-10.0); NEUT # 4.2 K/uL (1.8-7.0); NEUT % 57.3 % (50.0-75.0); NRBC % 0.1 % (0.0-0.0); RED CELL DISTRIBUTION WIDTH 13.9 % (11.5-14.5); WHITE BLOOD COUNT 7.3 K/uL (4.8-10.8)
--- NOTE | 2017-08-20 10:13 | CP.PCM.PN ---
Subjective - Date & Time of Evaluation Date of Evaluation: 08/20/17 Time of Evaluation: 08:00 - Subjective Subjective: POD#7: pt seen and examined at bedside. No acute events overnight. Pain controlled. No new complaints. Reports feeling better overall. Denies fever/ chills, headaches, CP/SOB/palpitations, N/V/D/C, urinary symptoms. Objective - Vital Signs/Intake and Output Vital Signs (last 24 hours): Temp Pulse Resp BP Pulse Ox 98.4 F 85 18 98/64 L 99 08/20/17 08:26 08/20/17 08:26 08/20/17 08:26 08/20/17 08:26 08/20/17 08:26 Intake and Output: 08/20/17 08/20/17 06:59 18:59 Output Total 200 Balance -200 - Medications Medications: Current Medications Acetaminophen (Tylenol 325mg Tab) 325 mg PO Q4 PRN PRN Reason: pain1-3 Last Admin: 08/17/17 08:04 Dose: 325 mg Alprazolam (Xanax) 0.5 mg PO Q8 PRN PRN Reason: Anxiety Last Admin: 08/19/17 21:50 Dose: 0.5 mg Aripiprazole (Abilify) 5 mg PO DAILY [facility] Last Admin: 08/19/17 08:29 Dose: Not Given Bacitracin (Bacitracin) 1 ea TOP TID [facility] Last Admin: 08/19/17 16:22 Dose: 1 ea Celecoxib (Celebrex) 200 mg PO Q12 [facility] Last Admin: 08/19/17 21:30 Dose: Not Given Citalopram Hydrobromide (Celexa) 20 mg PO DAILY [facility] Last Admin: 08/19/17 08:32 Dose: Not Given Enoxaparin Sodium (Lovenox) 70 mg SC DAILY [facility] Last Admin: 08/19/17 08:34 Dose: 70 mg Ferrous Sulfate (Feosol) 325 mg PO BID [facility] Last Admin: 08/19/17 16:21 Dose: 325 mg Gabapentin (Neurontin) 300 mg PO HS [facility] Last Admin: 08/19/17 21:33 Dose: Not Given Lidocaine (Lidoderm) 2 ea TD DAILY [facility] Last Admin: 08/19/17 08:33 Dose: 2 ea Lorazepam (Ativan) 0.5 mg IVP Q6 PRN PRN Reason: Anxiety Morphine Sulfate (Morphine) 2 mg IVP Q4 PRN PRN Reason: Pain, severe (8-10) Ondansetron HCl (Zofran Odt) 4 mg PO Q8H PRN PRN Reason: Nausea/Vomiting Pantoprazole Sodium (Protonix Ec Tab) 40 mg PO DAILY [facility] Last Admin: 08/19/17 08:35 Dose: 40 mg Potassium Chloride (K-Dur 20 Meq Er Tab) 40 meq PO DAILY [facility] Last Admin: 08/19/17 08:33 Dose: 40 meq Senna/Docusate Sodium (Senokot S 50 Mg-8.6 Mg) 2 tab PO HS [facility] Last Admin: 08/19/17 21:40 Dose: 2 tab - Labs Labs: 08/20/17 04:20 08/17/17 06:00 PT 12.0 Seconds (9.8-13.1) 08/16/17 11:30 INR 1.1 (0.9-1.2) 08/16/17 11:30 APTT 34.3 Seconds (25.6-37.1) 08/16/17 11:30 - Constitutional Appears: Non-toxic, No Acute Distress - Eye Exam Eye Exam: EOMI Pupil Exam: PERRL - Respiratory Exam Respiratory Exam: Clear to Ausculation Bilateral, NORMAL BREATHING PATTERN. absent: Rales, Rhonchi, Wheezes - Cardiovascular Exam Cardiovascular Exam: REGULAR RHYTHM, RRR, +S1, +S2. absent: Tachycardia, Gallop , JVD, Rubs, Murmur - GI/Abdominal Exam GI & Abdominal Exam: Soft, Normal Bowel Sounds. absent: Tenderness - Extremities Exam Extremities Exam: absent: Calf Tenderness, Pedal Edema, Tenderness - Neurological Exam Neurological Exam: Alert, Awake, CN II-XII Intact, Oriented x3 - Psychiatric Exam Psychiatric exam: Normal Affect, Normal Mood - Skin Skin Exam: Dry, Intact, Normal Color, Warm Assessment and Plan - Assessment and Plan (Free Text) Assessment: 62 y/o female with PMHx of HTN, Depression, OA b/l hips, prediabetes, POD#7 s/ p left THR and s/p pulmonary embolism Plan: 1)Anemia (post-procedural) (improving) -likely secondary to blood loss -s/p 1 unit PRBC transfusion -CBC on 08/20: 8.0/23.6, improved from 08/18: 7.4/21.0 -iv venofer, 1 unit -Iron studies: low iron, low TIBC, low % saturation -FOBT negative 2)Acute Pulmonary Embolism secondary to Post Op Course - Enoxaparin 70mg (1mg/kg) as per Hematology - CT angio chest (08/15): Multifocal small branch pulmonary emboli are identified in the right upper and lower lobes. No left sided pulmonary emboli identified. No large pulmonary artery emboli are identified including the main pulmonary artery and main right and left branches. - Immediate dose of Enoxaparin 110 mg was given SC (08/15), prior to CTA results due to high clinical suspicion of PE - Bilateral lower extremity duplex (08/15): No evidence of deep venous thrombosis - Left upper extremity venous duplex ordered : no UE DVT present - Ortho recommends IVC filter placement - Hematology recommendations appreciated: Patient will need to continue the lovenox for 6 months. If the patient cannot tolerate the anticoagulant or if she has any bleeding with anticoagulant, then IVC filter will be needed - as per Dr. Wilson - IR recommendations appreciated - EKG ordered(08/16): NSR; continuous cardiac monitoring on telemetry - Echo ordered (08/15) - normal echo, EF 60% approx - Troponin levels - negative - Factor 5, Protein C and S, DINO, Antiphospholipid, MTHFR, PT/INR and PTT labs: all negative or WNL respectively 3) Left Shoulder/arm pain -left shoulder Xray: positive for degenerative disease, no fracture/abnormality -u/s: negative for DVT -consult with physiatry, Dr. Figueroa for possible EMG appreciated 4) S/P Left THR secondary to Hip OA POD#7 -ortho currently on board, following pt -Pain well-controlled. -dressing changed 08/18 -Patient is followed by physical therapy 5) Depression/Anxiety -c/w home meds: Celexa, Abilify -ativan PRN -patient has been refusing to take her home psych meds 6) Prophylactic Measure: -patient on therapeutic Lovenox as above -SCDs
[2017-08-20] MEDS: Potassium Chloride 20 mEq ER Tab PO SCH (10:48)
[2017-08-20] MEDS: Enoxaparin 80 mg Syringe SC SCH (10:49)
[2017-08-20] MEDS: Lidocaine 5% Patch TD SCH (10:49)
[2017-08-20] MEDS: Pantoprazole 40 mg EC Tab PO SCH ×2 (10:50→11:11)
[2017-08-20] MEDS: Bacitracin 500 Units/gm Oint Foilpak UD TOP SCH ×3 (10:51→17:46)
[2017-08-20] MEDS: Oxycodone/Acetaminophen 5/325 mg Tab PO PRN ×2 (12:45→22:17)
--- NOTE | 2017-08-20 13:01 | CP.PCM.PN ---
Subjective - Date & Time of Evaluation Date of Evaluation: 08/20/17 Time of Evaluation: 12:55 - Subjective Subjective: Pt is in better spirits. today. Her wound does not show any more oozing. Her hgb is still 8.1gms. I just realised that she only got 1 unit of packed cells on saturday. Will give her another unit today and tomorrow start her on venofer for 5 days.Will continue lovenox for a total of 5days Objective - Vital Signs/Intake and Output Vital Signs (last 24 hours): Temp Pulse Resp BP Pulse Ox 98 F 96 H 18 99/65 L 99 08/20/17 12:46 08/20/17 12:46 08/20/17 12:46 08/20/17 12:46 08/20/17 12:46 Intake and Output: 08/20/17 08/20/17 06:59 18:59 Output Total 200 Balance -200 - Medications Medications: Current Medications Acetaminophen (Tylenol 325mg Tab) 325 mg PO Q4 PRN PRN Reason: pain1-3 Last Admin: 08/17/17 08:04 Dose: 325 mg Alprazolam (Xanax) 0.5 mg PO Q8 PRN PRN Reason: Anxiety Last Admin: 08/19/17 21:50 Dose: 0.5 mg Aripiprazole (Abilify) 5 mg PO DAILY [facility] Last Admin: 08/20/17 10:47 Dose: Not Given Bacitracin (Bacitracin) 1 ea TOP TID [facility] Last Admin: 08/20/17 10:51 Dose: 1 ea Celecoxib (Celebrex) 200 mg PO Q12 [facility] Last Admin: 08/20/17 10:47 Dose: Not Given Citalopram Hydrobromide (Celexa) 20 mg PO DAILY [facility] Last Admin: 08/20/17 10:48 Dose: Not Given Enoxaparin Sodium (Lovenox) 70 mg SC DAILY [facility] Last Admin: 08/20/17 10:49 Dose: 70 mg Ferrous Sulfate (Feosol) 325 mg PO BID [facility] Last Admin: 08/20/17 10:48 Dose: 325 mg Gabapentin (Neurontin) 300 mg PO HS [facility] Last Admin: 08/19/17 21:33 Dose: Not Given Lidocaine (Lidoderm) 2 ea TD DAILY [facility] Last Admin: 08/20/17 10:49 Dose: Not Given Lorazepam (Ativan) 0.5 mg IVP Q6 PRN PRN Reason: Anxiety Morphine Sulfate (Morphine) 2 mg IVP Q4 PRN PRN Reason: Pain, severe (8-10) Ondansetron HCl (Zofran Odt) 4 mg PO Q8H PRN PRN Reason: Nausea/Vomiting Oxycodone/Acetaminophen (Percocet 5/325 Mg Tab) 1 tab PO Q6 PRN PRN Reason: Pain, severe (8-10) Stop: 08/23/17 12:38 Last Admin: 08/20/17 12:45 Dose: 1 tab Pantoprazole Sodium (Protonix Ec Tab) 40 mg PO DAILY [facility] Last Admin: 08/20/17 11:11 Dose: 40 mg Potassium Chloride (K-Dur 20 Meq Er Tab) 40 meq PO DAILY [facility] Last Admin: 08/20/17 10:48 Dose: 40 meq Senna/Docusate Sodium (Senokot S 50 Mg-8.6 Mg) 2 tab PO HS [facility] Last Admin: 08/19/17 21:40 Dose: 2 tab - Labs Labs: 08/20/17 04:20 08/17/17 06:00 PT 12.0 Seconds (9.8-13.1) 08/16/17 11:30 INR 1.1 (0.9-1.2) 08/16/17 11:30 APTT 34.3 Seconds (25.6-37.1) 08/16/17 11:30
--- NOTE | 2017-08-20 14:27 | CP.PCM.CON ---
History of Present Illness - History of Present Illness History of Present Illness: Dr Figueroa PMR consultation on Gina Aguilar, born 1955 who has been admitted to [facility] for elective left THR with Dr Pfeiffer. Post op had PE, now stabilized. Still needs a unit of PRBC for post op anemia and will be put on venifer. Dr Wilson on the case. Has elevated BP and gets lightheaded with ambulation. Pre-existing left cervical radiculopathy and now with some right hand numbness associated with using the walker. The left cervical radicular symptoms are a little worse as well. She has lumbar stenosis and has had 3 recent DAVION with modest benefit. She has had a cervical MRI recently as well. I am asked to address the possibility of an emg/ncs. At this point she has a very strongly positive Spurling's on the left with numbness down the arm in less than 10 seconds. There is a negative Tinel's at the right wrist. I have discussed with her at length and I feel it is appropriate to hold off on the emg /ncs until she is upstairs and stable and she doesn't need the stress and discomfort with the study. There is a clear diagnosis that fits well with her prior history and there is no significant strength deficit that would need to be addressed differently Good coordination and intrinsic strength. Review of Systems - Constitutional Constitutional: Weakness. absent: Anorexia, Chills - EENT Eyes: absent: Blurred Vision Nose/Mouth/Throat: absent: Nasal Congestion - Cardiovascular Cardiovascular: Lightheadedness. absent: Chest Pain - Respiratory Respiratory: Dyspnea on Exertion - Gastrointestinal Gastrointestinal: absent: Belching - Musculoskeletal Musculoskeletal: Numbness, Radiating Pain into Limb - Neurological Neurological: absent: Abnormal Movements Past Patient History - Past Medical History & Family History Past Medical History?: Yes - Past Social History Smoking Status: Never Smoked Drugs: Denies - CARDIAC Hx Cardiac Disorders: Yes Hx Hypertension: Yes (NO MEDS) - PULMONARY Hx Respiratory Disorders: No - NEUROLOGICAL Hx Neurological Disorder: No - HEENT Hx HEENT Problems: No - RENAL Hx Chronic Kidney Disease: No - ENDOCRINE/METABOLIC Hx Diabetes Mellitus Type 2: Yes ([id number] MEDS) - HEMATOLOGICAL/ONCOLOGICAL Hx Blood Disorders: No Hx AIDS: No Hx Anemia: No Hx Blood Transfusions: No - INTEGUMENTARY Hx Dermatological Problems: No - MUSCULOSKELETAL/RHEUMATOLOGICAL Hx Arthritis: Yes - GASTROINTESTINAL Hx Gastrointestinal Disorders: No - GENITOURINARY/GYNECOLOGICAL Hx Genitourinary Disorders: No - PSYCHIATRIC Hx Emotional Abuse: No Hx Physical Abuse: No - SURGICAL HISTORY Hx Surgeries: Yes Other/Comment: C-SECTIONX1;TUMMY TUCK;EPIDURALX3;RIGHT BIG TOE SURGERY - ANESTHESIA Hx Anesthesia: Yes Hx Anesthesia Reactions: Yes (SEVERE NAUSEA/VOMITTING) Hx Malignant Hyperthermia: No Has any member of the family had a problem w/ anesthesia?: No Meds Allergies/Adverse Reactions: Allergies Allergy/AdvReac Type Severity Reaction Status Date / Time No Known Allergies Allergy Verified 08/12/17 11:29 - Medications Medications: Current Medications Acetaminophen (Tylenol 325mg Tab) 325 mg PO Q4 PRN PRN Reason: pain1-3 Last Admin: 08/17/17 08:04 Dose: 325 mg Alprazolam (Xanax) 0.5 mg PO Q8 PRN PRN Reason: Anxiety Last Admin: 08/19/17 21:50 Dose: 0.5 mg Aripiprazole (Abilify) 5 mg PO DAILY [facility] Last Admin: 08/20/17 10:47 Dose: Not Given Bacitracin (Bacitracin) 1 ea TOP TID [facility] Last Admin: 08/20/17 14:03 Dose: Not Given Celecoxib (Celebrex) 200 mg PO Q12 [facility] Last Admin: 08/20/17 10:47 Dose: Not Given Citalopram Hydrobromide (Celexa) 20 mg PO DAILY [facility] Last Admin: 08/20/17 10:48 Dose: Not Given Enoxaparin Sodium (Lovenox) 70 mg SC DAILY [facility] Last Admin: 08/20/17 10:49 Dose: 70 mg Ferrous Sulfate (Feosol) 325 mg PO BID [facility] Last Admin: 08/20/17 10:48 Dose: 325 mg Gabapentin (Neurontin) 300 mg PO HS [facility] Last Admin: 08/19/17 21:33 Dose: Not Given Lidocaine (Lidoderm) 2 ea TD DAILY [facility] Last Admin: 08/20/17 10:49 Dose: Not Given Lorazepam (Ativan) 0.5 mg IVP Q6 PRN PRN Reason: Anxiety Morphine Sulfate (Morphine) 2 mg IVP Q4 PRN PRN Reason: Pain, severe (8-10) Ondansetron HCl (Zofran Odt) 4 mg PO Q8H PRN PRN Reason: Nausea/Vomiting Oxycodone/Acetaminophen (Percocet 5/325 Mg Tab) 1 tab PO Q6 PRN PRN Reason: Pain, severe (8-10) Stop: 08/23/17 12:38 Last Admin: 08/20/17 12:45 Dose: 1 tab Pantoprazole Sodium (Protonix Ec Tab) 40 mg PO DAILY [facility] Last Admin: 08/20/17 11:11 Dose: 40 mg Potassium Chloride (K-Dur 20 Meq Er Tab) 40 meq PO DAILY [facility] Last Admin: 08/20/17 10:48 Dose: 40 meq Senna/Docusate Sodium (Senokot S 50 Mg-8.6 Mg) 2 tab PO HS [facility] Last Admin: 08/19/17 21:40 Dose: 2 tab Physical Exam - Constitutional Appears: Other (walking and got lightheaded, needed to stop a couple of times. Ambulation shows antalgia and she feels that there is a leg length discrepancy) - Head Exam Head Exam: ATRAUMATIC, NORMAL INSPECTION, NORMOCEPHALIC - Eye Exam Eye Exam: EOMI - ENT Exam ENT Exam: Mucous Membranes Moist - Respiratory Exam Respiratory Exam: NORMAL BREATHING PATTERN - Cardiovascular Exam Cardiovascular Exam: Tachycardia - GI/Abdominal Exam GI & Abdominal Exam: absent: Distended - Neurological Exam Neurological exam: Alert, CN II-XII Intact, Oriented x3 - Psychiatric Exam Psychiatric exam: Normal Affect, Normal Mood Results - Vital Signs Recent Vital Signs: Last Vital Signs Temp 98 F 08/20/17 12:46 Pulse 96 H 08/20/17 12:46 Resp 18 08/20/17 12:46 BP 99/65 L 08/20/17 12:46 Pulse Ox 99 08/20/17 12:46 - Labs Result Diagrams: 08/20/17 04:20 08/17/17 06:00 Labs: Laboratory Results - last 24 hr 08/19/17 08/19/17 08/19/17 12:33 16:54 19:03 WBC RBC Hgb Hct MCV MCH MCHC RDW Plt Count MPV Neut % (Auto) Lymph % (Auto) [place] % (Auto) Eos % (Auto) Baso % (Auto) Neut # Lymph # [place] # Eos # Baso # POC Glucose (mg/dL) 119 H Iron 25 L TIBC 227 L % Saturation 11 L Stool Occult Blood Negative 08/19/17 08/20/17 08/20/17 21:40 04:20 05:25 WBC 7.3 RBC 2.53 L Hgb 8.0 L Hct 23.3 L MCV 92.3 MCH 31.8 H MCHC 34.4 RDW 13.9 Plt Count 267 MPV 7.3 Neut % (Auto) 57.3 Lymph % (Auto) 30.6 [place] % (Auto) 10.6 H Eos % (Auto) 1.1 Baso % (Auto) 0.4 Neut # 4.2 Lymph # 2.2 [place] # 0.8 Eos # 0.1 Baso # 0.0 POC Glucose (mg/dL) 141 H 99 Iron TIBC % Saturation Stool Occult Blood Assessment & Plan - Assessment and Plan (Free Text) Assessment: s/p left THR see HPI
[2017-08-20] MEDS: Docusate-Senna 50 mg-8.6 mg Tab PO SCH (22:12)
[2017-08-21 05:28] LABS: BLOOD UREA NITROGEN 15 mg/dl (7-17); CALCIUM 8.9 mg/dL (8.4-10.2); CARBON DIOXIDE 26 mmol/L (22-30); CHLORIDE 106 mmol/L (98-107); GFR AFRICAN-AMERICAN > 60; GLUCOSE,RANDOM 121 mg/dL (65-105); POTASSIUM 4.1 MMOL/L (3.6-5.0); SODIUM 139 mmol/l (132-148)
[2017-08-21 05:37] LABS: HEMATOCRIT 29.3 % (34.0-47.0); MEAN CELL VOLUME 91.6 fl (81.0-99.0); MEAN CORPUSCULAR HEMOGLOBIN 31.5 pg (27.0-31.0); MEAN CORPUSCULAR HGB CONC 34.4 g/dL (33.0-37.0); RED CELL DISTRIBUTION WIDTH 14.5 % (11.5-14.5); WHITE BLOOD COUNT 6.5 K/uL (4.8-10.8)
[2017-08-21] MEDS: Bacitracin 500 Units/gm Oint Foilpak UD TOP SCH ×3 (08:57→19:41)
[2017-08-21] MEDS: Lidocaine 5% Patch TD SCH (08:59)
[2017-08-21] MEDS: Potassium Chloride 20 mEq ER Tab PO SCH (08:59)
[2017-08-21] MEDS: Pantoprazole 40 mg EC Tab PO SCH (09:00)
[2017-08-21] MEDS: Enoxaparin 80 mg Syringe SC SCH (09:00)
--- NOTE | 2017-08-21 10:31 | CP.PCM.DIS ---
Provider - Provider Date of Admission: 08/13/17 17:20 Attending physician: Nancy Alford MD Primary care physician: Landon Cuellar MD Time Spent in preparation of Discharge (in minutes): 35 Diagnosis - Discharge Diagnosis (1) Status post THR (total hip replacement) Status: Acute (2) Acute pulmonary embolism Status: Acute Hospital Course - Lab Results Lab Results: Most Recent Lab Values WBC 6.5 K/uL (4.8-10.8) 08/21/17 04:10 RBC 3.20 Mil/uL (3.80-5.20) L 08/21/17 04:10 Hgb 10.1 g/dL (12.0-16.0) L D 08/21/17 04:10 Hct 29.3 % (34.0-47.0) L 08/21/17 04:10 MCV 91.6 fl (81.0-99.0) 08/21/17 04:10 MCH 31.5 pg (27.0-31.0) H 08/21/17 04:10 MCHC 34.4 g/dL (33.0-37.0) 08/21/17 04:10 RDW 14.5 % (11.5-14.5) 08/21/17 04:10 Plt Count 283 K/uL (130-400) 08/21/17 04:10 MPV 7.3 fl (7.2-11.7) 08/20/17 04:20 Neut % (Auto) 57.3 % (50.0-75.0) 08/20/17 04:20 Lymph % (Auto) 30.6 % (20.0-40.0) 08/20/17 04:20 [place] % (Auto) 10.6 % (0.0-10.0) H 08/20/17 04:20 Eos % (Auto) 1.1 % (0.0-4.0) 08/20/17 04:20 Baso % (Auto) 0.4 % (0.0-2.0) 08/20/17 04:20 Neut # 4.2 K/uL (1.8-7.0) 08/20/17 04:20 Lymph # 2.2 K/uL (1.0-4.3) 08/20/17 04:20 [place] # 0.8 K/uL (0.0-0.8) 08/20/17 04:20 Eos # 0.1 K/uL (0.0-0.7) 08/20/17 04:20 Baso # 0.0 K/uL (0.0-0.2) 08/20/17 04:20 PT 12.0 Seconds (9.8-13.1) 08/16/17 11:30 INR 1.1 (0.9-1.2) 08/16/17 11:30 APTT 34.3 Seconds (25.6-37.1) 08/16/17 11:30 D-Dimer, Quantitative 1021 ng/mlDDU (0-230) H 08/15/17 15:35 Protein C Activity 151 % (70-180) 08/16/17 12:00 Protein S Activity 85 % (60-140) 08/16/17 12:00 Sodium 139 mmol/l (132-148) 08/21/17 04:10 Potassium 4.1 MMOL/L (3.6-5.0) 08/21/17 04:10 Chloride 106 mmol/L (98-107) 08/21/17 04:10 Carbon Dioxide 26 mmol/L (22-30) 08/21/17 04:10 Anion Gap 11 (10-20) 08/21/17 04:10 BUN 15 mg/dl (7-17) 08/21/17 04:10 Creatinine 0.7 mg/dL (0.7-1.2) 08/21/17 04:10 Est GFR ( Amer) > 60 08/21/17 04:10 Est GFR (Non-Af Amer) > 60 08/21/17 04:10 POC Glucose (mg/dL) 132 mg/dL (65-110) H 08/20/17 22:25 Random Glucose 121 mg/dL (65-105) H 08/21/17 04:10 Calcium 8.9 mg/dL (8.4-10.2) 08/21/17 04:10 Iron 25 ug/dL (37-170) L 08/19/17 19:03 TIBC 227 ug/dL (250-450) L 08/19/17 19:03 % Saturation 11 % (20-55) L 08/19/17 19:03 Total Bilirubin 0.6 mg/dl (0.2-1.3) 08/16/17 04:30 AST 24 U/L (14-36) 08/16/17 04:30 ALT 26 U/L (9-52) 08/16/17 04:30 Alkaline Phosphatase 54 U/L (38-126) 08/16/17 04:30 Troponin I < 0.0120 ng/mL (0.00-0.120) 08/16/17 11:30 Total Protein 5.8 G/DL (6.3-8.2) L 08/16/17 04:30 Albumin 3.1 g/dL (3.5-5.0) L 08/16/17 04:30 Globulin 2.7 gm/dL (2.2-3.9) 08/16/17 04:30 Albumin/Globulin Ratio 1.1 (1.0-2.1) 08/16/17 04:30 Stool Occult Blood Negative (NEGATIVE) 08/19/17 12:33 DINO Screen Negative (Negative) 08/16/17 12:13 [id number] Ab <9 DARRYL (<=20) 08/16/17 12:00 Beta-2 GPI IgG Ab <9 SGU (<=20) 08/16/17 12:00 Beta-2 GPI IgM Ab <9 SMU (<=20) 08/16/17 12:00 Phosphatidylserine IgG <10 U/mL (<10) 08/16/17 12:00 Phosphatidylserine IgA <20 U/mL (<20) 08/16/17 12:00 Phosphatidylserine IgM <25 U/mL (<25) 08/16/17 12:00 Anti-Phospholipid Intrp see note 08/16/17 12:00 Anti-Cardiolipin IgG Ab <14 GPL (<=14) 08/16/17 12:00 Anti-Cardiolipin IgA Ab <11 APL (<=11) 08/16/17 12:00 Anti-Cardiolipin IgM Ab <12 MPL (<=12) 08/16/17 12:00 Blood Type O NEGATIVE 08/18/17 12:00 Blood Type Confirm O NEGATIVE 08/13/17 10:20 Antibody Screen Negative 08/18/17 12:00 Crossmatch See Detail 08/18/17 12:00 BBK History Checked Patient has bt 08/18/17 12:00 - Hospital Course Hospital Course: 62 y/o female with b/l hip osteoarthritis under went left THR. Complicated with post-op acute pulmonary embolism. Pt remained stable. Transfused 2 units PRBCs for post op anemai. Treated with therapeutic lovenox. After an otherwise uneventful hospital stay, pt was discharged in stable condition. Discharge Exam - Head Exam Head Exam: ATRAUMATIC, NORMAL INSPECTION, NORMOCEPHALIC - Eye Exam Eye Exam: EOMI Pupil Exam: PERRL - ENT Exam ENT Exam: Mucous Membranes Moist - Respiratory Exam Respiratory Exam: Clear to PA & Lateral, NORMAL BREATHING PATTERN, UNREMARKABLE. absent: Rales, Rhonchi, Respiratory Distress - Cardiovascular Exam Cardiovascular Exam: REGULAR RHYTHM, RRR, +S1, +S2. absent: JVD, Rubs, Systolic Murmur - GI/Abdominal Exam GI & Abdominal Exam: Normal Bowel Sounds, Unremarkable - Extremities Exam Extremities exam: pedal pulses present Additional comments: s/p left THR, NV intact, no calf pain, erythema. Homans neg b/l - Neurological Exam Neurological exam: Alert, CN II-XII Intact, Oriented x3, Reflexes Normal - Psychiatric Exam Psychiatric exam: Normal Affect, Normal Mood - Skin Skin Exam: Dry, Intact, Normal Color, Warm Discharge Plan - Follow Up Plan Condition: GOOD Disposition: REHAB FACILITY/REHAB UNIT Referrals: Landon Cuellar MD [Primary Care Provider] -
[2017-08-21] MEDS: Oxycodone/Acetaminophen 5/325 mg Tab PO PRN (11:34)
[2017-08-21 15:38] VITALS: RESP 20
--- NOTE | 2017-08-21 16:42 | CP.PCM.PN ---
Subjective - Date & Time of Evaluation Date of Evaluation: 08/21/17 Time of Evaluation: 16:40 - Subjective Subjective: Patient seen in room aware of concern for possible left LE DVT, doppler pending much better day today ambulated better and better HR Hgb was >10. no significant drainage from the left hip right flank ecchymosis from LMWH pending transfer to [facility] Objective - Vital Signs/Intake and Output Vital Signs (last 24 hours): Temp Pulse Resp BP Pulse Ox 97.9 F 91 H 20 122/78 99 08/21/17 15:38 08/21/17 15:38 08/21/17 15:38 08/21/17 15:38 08/21/17 15:38 - Medications Medications: Current Medications Acetaminophen (Tylenol 325mg Tab) 325 mg PO Q4 PRN PRN Reason: pain1-3 Last Admin: 08/17/17 08:04 Dose: 325 mg Alprazolam (Xanax) 0.5 mg PO Q8 PRN PRN Reason: Anxiety Last Admin: 08/20/17 17:20 Dose: 0.5 mg Aripiprazole (Abilify) 5 mg PO DAILY [facility] Last Admin: 08/21/17 08:56 Dose: Not Given Bacitracin (Bacitracin) 1 ea TOP TID [facility] Last Admin: 08/21/17 13:25 Dose: Not Given Celecoxib (Celebrex) 200 mg PO Q12 [facility] Last Admin: 08/21/17 08:58 Dose: 200 mg Citalopram Hydrobromide (Celexa) 20 mg PO DAILY [facility] Last Admin: 08/21/17 08:58 Dose: Not Given Enoxaparin Sodium (Lovenox) 70 mg SC DAILY [facility] Last Admin: 08/21/17 09:00 Dose: 70 mg Ferrous Sulfate (Feosol) 325 mg PO BID [facility] Last Admin: 08/21/17 08:58 Dose: 325 mg Gabapentin (Neurontin) 300 mg PO HS [facility] Last Admin: 08/20/17 22:20 Dose: Not Given Lidocaine (Lidoderm) 2 ea TD DAILY [facility] Last Admin: 08/21/17 08:59 Dose: Not Given Lorazepam (Ativan) 0.5 mg IVP Q6 PRN PRN Reason: Anxiety Morphine Sulfate (Morphine) 2 mg IVP Q4 PRN PRN Reason: Pain, severe (8-10) Ondansetron HCl (Zofran Odt) 4 mg PO Q8H PRN PRN Reason: Nausea/Vomiting Oxycodone/Acetaminophen (Percocet 5/325 Mg Tab) 1 tab PO Q6 PRN PRN Reason: Pain, severe (8-10) Stop: 08/23/17 12:38 Last Admin: 08/21/17 11:34 Dose: 1 tab Pantoprazole Sodium (Protonix Ec Tab) 40 mg PO DAILY [facility] Last Admin: 08/21/17 09:00 Dose: 40 mg Potassium Chloride (K-Dur 20 Meq Er Tab) 40 meq PO DAILY [facility] Last Admin: 08/21/17 08:59 Dose: 40 meq Senna/Docusate Sodium (Senokot S 50 Mg-8.6 Mg) 2 tab PO HS [facility] Last Admin: 08/20/17 22:12 Dose: 2 tab - Labs Labs: 08/21/17 04:10 08/21/17 04:10 PT 12.0 Seconds (9.8-13.1) 08/16/17 11:30 INR 1.1 (0.9-1.2) 08/16/17 11:30 APTT 34.3 Seconds (25.6-37.1) 08/16/17 11:30
--- NOTE | 2017-08-21 17:54 | US ---
HISTORY: r/o DVT . PRIORS: None. FINDINGS: 2-D, color and duplex Doppler analysis of the lower extremity venous circulation using routine protocol from the femoral veins through the popliteal veins. Venous compressibility: Normal. Flow and augmentation patterns: Normal. Visualized veins upper third of calf: Normal. Hood cyst: None. IMPRESSION: No sonographic or Doppler evidence for DVT in left lower extremity.
[2017-08-21] MEDS: Docusate-Senna 50 mg-8.6 mg Tab PO SCH (21:55)
[2017-08-21] MEDS: Diphenhydramine 1% CREAM TOP PRN (22:02)
[2017-08-22] MEDS: Oxycodone/Acetaminophen 5/325 mg Tab PO PRN (00:28)
[2017-08-22] MEDS: Bacitracin 500 Units/gm Oint Foilpak UD TOP SCH ×2 (09:05→13:33)
[2017-08-22] MEDS: Potassium Chloride 20 mEq ER Tab PO SCH (09:07)
[2017-08-22] MEDS: Lidocaine 5% Patch TD SCH (09:07)
[2017-08-22] MEDS: Enoxaparin 80 mg Syringe SC SCH (09:08)
[2017-08-22] MEDS: Pantoprazole 40 mg EC Tab PO SCH (09:09)
[2017-08-22] MEDS ORDERED: DiphenhydrAMINE 12.5 mg/5 ml LIQ UD (5 ml) PO PRN (09:12)
--- NOTE | 2017-08-22 09:19 | CP.PCM.PN ---
Subjective - Date & Time of Evaluation Date of Evaluation: 08/22/17 Time of Evaluation: 09:14 - Subjective Subjective: Pt is afebrile, no shortness of breath or tachycardia. yesterday she had some tenderness in the left calf, but ultraspund of the lower extremity normal. Today she is up and walking to the bathroom . The only complaint she has is itching on her back since she changed her gown and there is a mild urticarial rash CBC will be done tomorrow, Plan;will give her some benadryl. for the itch Objective - Vital Signs/Intake and Output Vital Signs (last 24 hours): Temp Pulse Resp BP Pulse Ox 97.8 F 93 H 20 131/81 100 08/22/17 09:03 08/22/17 09:03 08/22/17 09:03 08/22/17 09:03 08/22/17 09:03 - Medications Medications: Current Medications Acetaminophen (Tylenol 325mg Tab) 325 mg PO Q4 PRN PRN Reason: pain1-3 Last Admin: 08/17/17 08:04 Dose: 325 mg Alprazolam (Xanax) 0.5 mg PO Q8 PRN PRN Reason: Anxiety Last Admin: 08/20/17 17:20 Dose: 0.5 mg Aripiprazole (Abilify) 5 mg PO DAILY [facility] Last Admin: 08/22/17 09:04 Dose: Not Given Bacitracin (Bacitracin) 1 ea TOP TID [facility] Last Admin: 08/22/17 09:05 Dose: 1 ea Celecoxib (Celebrex) 200 mg PO Q12 [facility] Last Admin: 08/22/17 09:06 Dose: Not Given Citalopram Hydrobromide (Celexa) 20 mg PO DAILY [facility] Last Admin: 08/22/17 09:06 Dose: Not Given Diphenhydramine HCl (Benadryl) 12.5 mg PO Q6 PRN PRN Reason: Itching / Pruritus Enoxaparin Sodium (Lovenox) 70 mg SC DAILY [facility] Last Admin: 08/22/17 09:08 Dose: 70 mg Ferrous Sulfate (Feosol) 325 mg PO BID [facility] Last Admin: 08/22/17 09:06 Dose: 325 mg Gabapentin (Neurontin) 300 mg PO HS [facility] Last Admin: 08/21/17 21:57 Dose: Not Given Hydrocortisone (Cortizone 0.5% Cream) 1 applic TOP BID [facility] Last Admin: 08/22/17 09:06 Dose: 1 applic Lidocaine (Lidoderm) 2 ea TD DAILY [facility] Last Admin: 08/22/17 09:07 Dose: Not Given Lorazepam (Ativan) 0.5 mg IVP Q6 PRN PRN Reason: Anxiety Morphine Sulfate (Morphine) 2 mg IVP Q4 PRN PRN Reason: Pain, severe (8-10) Ondansetron HCl (Zofran Odt) 4 mg PO Q8H PRN PRN Reason: Nausea/Vomiting Oxycodone/Acetaminophen (Percocet 5/325 Mg Tab) 1 tab PO Q6 PRN PRN Reason: Pain, severe (8-10) Stop: 08/23/17 12:38 Last Admin: 08/22/17 00:28 Dose: 1 tab Pantoprazole Sodium (Protonix Ec Tab) 40 mg PO DAILY [facility] Last Admin: 08/22/17 09:09 Dose: 40 mg Potassium Chloride (K-Dur 20 Meq Er Tab) 40 meq PO DAILY [facility] Last Admin: 08/22/17 09:07 Dose: 40 meq Senna/Docusate Sodium (Senokot S 50 Mg-8.6 Mg) 2 tab PO HS [facility] Last Admin: 08/21/17 21:55 Dose: 2 tab Zinc Acetate/Diphenhydramine (Benadryl 1% Zinc Acetate -0.1%) 1 applic TOP Q8 PRN PRN Reason: Itching / Pruritus Last Admin: 08/21/17 22:02 Dose: 1 applic - Labs Labs: 08/21/17 04:10 08/21/17 04:10 PT 12.0 Seconds (9.8-13.1) 08/16/17 11:30 INR 1.1 (0.9-1.2) 08/16/17 11:30 APTT 34.3 Seconds (25.6-37.1) 08/16/17 11:30
[2017-08-22 12:52] VITALS: PULSE 99
--- NOTE | 2017-08-22 15:07 | CP.PCM.PCO ---
Assessment/Plan - Assessment and Plan (Free Text) Assessment: Seen with PGY-2 doppler negative Eye changes have resolved. feels more fatigued . Neuro exam wnl. Seems anxious transfer to acute rehab
[2017-08-22 16:19] VITALS: BP 107/71; TEMP 98.8; O2SAT 98
[2017-08-22] MEDS: Diphenhydramine 1% CREAM TOP PRN (17:03)
--- NOTE | 2017-08-22 18:03 | CP.PCM.CON ---
History of Present Illness - History of Present Illness History of Present Illness: Dr Figueroa PMR consultation on Gina Aguilar, born 1955 who has been admitted to [facility] now for acute inpatient rehabilitation following an elective left THR with Dr Pfeiffer. Post op had PE, now stabilized. She had 2 units of PRBCs for post op anemia and is now over [address] Wilson on the case. Had elevated BP and got lightheaded with ambulation but doing much better. Pre- existing left cervical radiculopathy and now with some right hand numbness associated with using the walker. The left cervical radicular symptoms are a little worse as well. She has lumbar stenosis and has had 3 recent DAVION with modest benefit. She has had a cervical MRI recently as well. I had evaluated her for a possible emg/ncs and noted a very strongly positive Spurling's on the left with numbness down the arm in less than 10 seconds. There is a negative Tinel's at the right wrist. I have discussed with her at length and I feel it is appropriate to hold off on the emg/ncs until she is more stable and she doesn't need the stress and discomfort with the study. There is a clear diagnosis that fits well with her prior history and there is no significant strength deficit that would need to be addressed differently. Good coordination and intrinsic strength. Doppler performed prior to coming up here and was negative for a DVT Review of Systems - Constitutional Constitutional: absent: Anorexia, Chills - EENT Eyes: absent: Blurred Vision Ears: absent: Ear Discharge - Cardiovascular Cardiovascular: absent: Chest Pain - Respiratory Respiratory: absent: Cough, Dyspnea - Gastrointestinal Gastrointestinal: absent: Belching, Constipation - Musculoskeletal Musculoskeletal: Numbness (as noted in HPI). absent: Muscle Cramps - Integumentary Integumentary: Bleeding Lesions (has some tape blisters on superior aspect of incision) - Neurological Neurological: absent: Abnormal Movements, Behavioral Changes Past Patient History - Past Medical History & Family History Past Medical History?: Yes - Past Social History Smoking Status: Never Smoked Drugs: Denies Home Situation {Lives}: With Family (+ elevator) - CARDIAC Hx Cardiac Disorders: Yes Hx Hypertension: Yes (NO MEDS) - PULMONARY Hx Respiratory Disorders: No - NEUROLOGICAL Hx Neurological Disorder: No - HEENT Hx HEENT Problems: No - RENAL Hx Chronic Kidney Disease: No - ENDOCRINE/METABOLIC Hx Diabetes Mellitus Type 2: Yes ([id number] MEDS) - HEMATOLOGICAL/ONCOLOGICAL Hx Blood Disorders: No Hx AIDS: No Hx Anemia: No Hx Blood Transfusions: No - INTEGUMENTARY Hx Dermatological Problems: No - MUSCULOSKELETAL/RHEUMATOLOGICAL Hx Arthritis: Yes - GASTROINTESTINAL Hx Gastrointestinal Disorders: No - GENITOURINARY/GYNECOLOGICAL Hx Genitourinary Disorders: No - PSYCHIATRIC Hx Emotional Abuse: No Hx Physical Abuse: No - SURGICAL HISTORY Hx Surgeries: Yes Other/Comment: C-SECTIONX1;TUMMY TUCK;EPIDURALX3;RIGHT BIG TOE SURGERY - ANESTHESIA Hx Anesthesia: Yes Hx Anesthesia Reactions: Yes (SEVERE NAUSEA/VOMITTING) Hx Malignant Hyperthermia: No Has any member of the family had a problem w/ anesthesia?: No Meds Allergies/Adverse Reactions: Allergies Allergy/AdvReac Type Severity Reaction Status Date / Time No Known Allergies Allergy Verified 08/12/17 11:29 - Medications Medications: Current Medications Acetaminophen (Tylenol 325mg Tab) 325 mg PO Q4 PRN PRN Reason: pain1-3 Last Admin: 08/17/17 08:04 Dose: 325 mg Alprazolam (Xanax) 0.5 mg PO Q8 PRN PRN Reason: Anxiety Last Admin: 08/20/17 17:20 Dose: 0.5 mg Aripiprazole (Abilify) 5 mg PO DAILY [facility] Last Admin: 08/22/17 09:04 Dose: Not Given Bacitracin (Bacitracin) 1 ea TOP TID [facility] Last Admin: 08/22/17 13:33 Dose: Not Given Celecoxib (Celebrex) 200 mg PO Q12 [facility] Last Admin: 08/22/17 09:06 Dose: Not Given Citalopram Hydrobromide (Celexa) 20 mg PO DAILY [facility] Last Admin: 08/22/17 09:06 Dose: Not Given Diphenhydramine HCl (Benadryl) 12.5 mg PO Q6 PRN PRN Reason: Itching / Pruritus Enoxaparin Sodium (Lovenox) 70 mg SC DAILY [facility] Last Admin: 08/22/17 09:08 Dose: 70 mg Ferrous Sulfate (Feosol) 325 mg PO BID [facility] Last Admin: 08/22/17 17:00 Dose: 325 mg Gabapentin (Neurontin) 300 mg PO HS [facility] Last Admin: 08/21/17 21:57 Dose: Not Given Hydrocortisone (Cortizone 0.5% Cream) 1 applic TOP BID [facility] Last Admin: 08/22/17 17:00 Dose: 1 applic Lidocaine (Lidoderm) 2 ea TD DAILY [facility] Last Admin: 08/22/17 09:07 Dose: Not Given Lorazepam (Ativan) 0.5 mg IVP Q6 PRN PRN Reason: Anxiety Morphine Sulfate (Morphine) 2 mg IVP Q4 PRN PRN Reason: Pain, severe (8-10) Ondansetron HCl (Zofran Odt) 4 mg PO Q8H PRN PRN Reason: Nausea/Vomiting Oxycodone/Acetaminophen (Percocet 5/325 Mg Tab) 1 tab PO Q6 PRN PRN Reason: Pain, severe (8-10) Stop: 08/23/17 12:38 Last Admin: 08/22/17 00:28 Dose: 1 tab Pantoprazole Sodium (Protonix Ec Tab) 40 mg PO DAILY [facility] Last Admin: 08/22/17 09:09 Dose: 40 mg Potassium Chloride (K-Dur 20 Meq Er Tab) 40 meq PO DAILY [facility] Last Admin: 08/22/17 09:07 Dose: 40 meq Senna/Docusate Sodium (Senokot S 50 Mg-8.6 Mg) 2 tab PO HS [facility] Last Admin: 08/21/17 21:55 Dose: 2 tab Zinc Acetate/Diphenhydramine (Benadryl 1% Zinc Acetate -0.1%) 1 applic TOP Q8 PRN PRN Reason: Itching / Pruritus Last Admin: 08/22/17 17:03 Dose: 1 applic Physical Exam - Constitutional Appears: Non-toxic, No Acute Distress - Head Exam Head Exam: ATRAUMATIC, NORMAL INSPECTION, NORMOCEPHALIC - Eye Exam Eye Exam: EOMI - ENT Exam ENT Exam: Mucous Membranes Moist - Respiratory Exam Respiratory Exam: NORMAL BREATHING PATTERN - Cardiovascular Exam Cardiovascular Exam: REGULAR RHYTHM - GI/Abdominal Exam GI & Abdominal Exam: Normal Bowel Sounds. absent: Distended - Extremities Exam Extremities exam: Negative for: calf tenderness, pedal edema - Neurological Exam Neurological exam: Alert, CN II-XII Intact, Oriented x3 - Psychiatric Exam Psychiatric exam: Anxious (mild anxiety), Normal Affect, Normal Mood - Skin Skin Exam: Warm (has a few small stage II tape blisters at the superior aspect of the incision) Results - Vital Signs Recent Vital Signs: Last Vital Signs Temp 98.8 F 08/22/17 16:18 Pulse 99 H 08/22/17 16:18 Resp 20 08/22/17 16:18 BP 107/71 08/22/17 16:18 Pulse Ox 98 08/22/17 16:18 - Labs Result Diagrams: 08/21/17 04:10 08/21/17 04:10 Labs: Laboratory Results - last 24 hr 08/16/17 08/21/17 08/21/17 12:00 15:54 21:34 Factor V see note POC Glucose (mg/dL) 101 72 Assessment & Plan - Assessment and Plan (Free Text) Plan: PT/OT to continue to help increase functional independence Team conference for d/c planning Pain: controlled Vascular: no evidence of DVT GI: No evidence of constipation or diarrhea Impairment code: 08.51 Patient is an excellent acute rehabilitation candidate and will have focused pain management, wound care, PT, OT and recreational therapy to help facilitate a safe and appropriate d/c plan
--- NOTE | 2017-08-22 18:07 | PCM.OPOC ---
Physiatry Overall Plan of Care - Overall Plan of Care Estimated Length of Stay in Weeks: 2 Rehab Impairment: Mobility, Gait, Balance, Coordination Etiologic Diagnosis: Hip/Knee Surgery Rehab/Medical Prognosis: Good - Anticipated Interventions Physical Therapy:: Yes Occupational Therapy:: Yes Speech Therapy:: No Recreational Therapy:: Yes - Therapy Goals Bed Mobility: Supervision Ambulation: Supervision Functional Positional Changes:: Supervision - Discharge Plan Identification of Barriers to Discharge: Home Situation Discharge Destination: Home
== END 2017-08-22 17:10 | DRG 818 ==
LOC: H.OPSURG 09:00 → H.MEDSURG1 17:20 → H.TEL 08-15 13:34
PROVIDERS: ADMIT Family Medicine Geriatric Medicine; ATTEND Family Medicine Geriatric Medicine
PROC: 0SRB03Z Replacement of Left Hip Joint with Ceramic Synthetic Substitute, Open Approach (ICD-10-PCS; principal; 2017-08-13 15:30)
PROC: 3E0234Z Introduction of Serum, Toxoid and Vaccine into Muscle, Percutaneous Approach (ICD-10-PCS; 2017-08-14)
PROC: 30233N1 Transfusion of Nonautologous Red Blood Cells into Peripheral Vein, Percutaneous Approach (ICD-10-PCS; 2017-08-18)
DX: M16.0 Bilateral primary osteoarthritis of hip (principal); I26.99 Other pulmonary embolism without acute cor pulmonale; D62 Acute posthemorrhagic anemia; I10 Essential (primary) hypertension; Z23 Encounter for immunization; F32.9 Major depressive disorder, single episode, unspecified; F41.9 Anxiety disorder, unspecified; T81.718A Complication of other artery following a procedure, not elsewhere classified, initial encounter; Y83.8 Other surgical procedures as the cause of abnormal reaction of the patient, or of later complication, without mention of misadventure at the time of the procedure; M48.061 Spinal stenosis, lumbar region without neurogenic claudication; M54.12 Radiculopathy, cervical region; M79.622 Pain in left upper arm; R73.03 Prediabetes

== ENCOUNTER 2017-08-21 14:09 | Inpatient (IN) | payer OTHER ==
--- NOTE | 2017-08-22 18:03 | CP.PCM.CON ---
History of Present Illness - History of Present Illness History of Present Illness: Dr Figueroa PMR consultation on Gina Aguilar, born 1955 who has been admitted to [facility] now for acute inpatient rehabilitation following an elective left THR with Dr Pfeiffer. Post op had PE, now stabilized. She had 2 units of PRBCs for post op anemia and is now over [address] Wilson on the case. Had elevated BP and got lightheaded with ambulation but doing much better. Pre- existing left cervical radiculopathy and now with some right hand numbness associated with using the walker. The left cervical radicular symptoms are a little worse as well. She has lumbar stenosis and has had 3 recent DAVION with modest benefit. She has had a cervical MRI recently as well. I had evaluated her for a possible emg/ncs and noted a very strongly positive Spurling's on the left with numbness down the arm in less than 10 seconds. There is a negative Tinel's at the right wrist. I have discussed with her at length and I feel it is appropriate to hold off on the emg/ncs until she is more stable and she doesn't need the stress and discomfort with the study. There is a clear diagnosis that fits well with her prior history and there is no significant strength deficit that would need to be addressed differently. Good coordination and intrinsic strength. Doppler performed prior to coming up here and was negative for a DVT Review of Systems - Constitutional Constitutional: absent: Anorexia, Chills - EENT Eyes: absent: Blurred Vision Ears: absent: Ear Discharge - Cardiovascular Cardiovascular: absent: Chest Pain - Respiratory Respiratory: absent: Cough, Dyspnea - Gastrointestinal Gastrointestinal: absent: Belching, Constipation - Musculoskeletal Musculoskeletal: Numbness (as noted in HPI). absent: Muscle Cramps - Integumentary Integumentary: Bleeding Lesions (has some tape blisters on superior aspect of incision) - Neurological Neurological: absent: Abnormal Movements, Behavioral Changes Past Patient History - Past Medical History & Family History Past Medical History?: Yes - Past Social History Smoking Status: Never Smoked Drugs: Denies Home Situation {Lives}: With Family (+ elevator) - CARDIAC Hx Cardiac Disorders: Yes Hx Hypertension: Yes (NO MEDS) - PULMONARY Hx Respiratory Disorders: No - NEUROLOGICAL Hx Neurological Disorder: No - HEENT Hx HEENT Problems: No - RENAL Hx Chronic Kidney Disease: No - ENDOCRINE/METABOLIC Hx Diabetes Mellitus Type 2: Yes ([id number] MEDS) - HEMATOLOGICAL/ONCOLOGICAL Hx Blood Disorders: No Hx AIDS: No Hx Anemia: No Hx Blood Transfusions: No - INTEGUMENTARY Hx Dermatological Problems: No - MUSCULOSKELETAL/RHEUMATOLOGICAL Hx Arthritis: Yes - GASTROINTESTINAL Hx Gastrointestinal Disorders: No - GENITOURINARY/GYNECOLOGICAL Hx Genitourinary Disorders: No - PSYCHIATRIC Hx Emotional Abuse: No Hx Physical Abuse: No - SURGICAL HISTORY Hx Surgeries: Yes Other/Comment: C-SECTIONX1;TUMMY TUCK;EPIDURALX3;RIGHT BIG TOE SURGERY - ANESTHESIA Hx Anesthesia: Yes Hx Anesthesia Reactions: Yes (SEVERE NAUSEA/VOMITTING) Hx Malignant Hyperthermia: No Has any member of the family had a problem w/ anesthesia?: No Meds Allergies/Adverse Reactions: Allergies Allergy/AdvReac Type Severity Reaction Status Date / Time No Known Allergies Allergy Verified 08/22/17 18:41 - Medications Medications: Current Medications Acetaminophen (Tylenol 325mg Tab) 325 mg PO Q4 PRN PRN Reason: pain1-3 Last Admin: 08/17/17 08:04 Dose: 325 mg Alprazolam (Xanax) 0.5 mg PO Q8 PRN PRN Reason: Anxiety Last Admin: 08/20/17 17:20 Dose: 0.5 mg Aripiprazole (Abilify) 5 mg PO DAILY [facility] Last Admin: 08/22/17 09:04 Dose: Not Given Bacitracin (Bacitracin) 1 ea TOP TID [facility] Last Admin: 08/22/17 13:33 Dose: Not Given Celecoxib (Celebrex) 200 mg PO Q12 [facility] Last Admin: 08/22/17 09:06 Dose: Not Given Citalopram Hydrobromide (Celexa) 20 mg PO DAILY [facility] Last Admin: 08/22/17 09:06 Dose: Not Given Diphenhydramine HCl (Benadryl) 12.5 mg PO Q6 PRN PRN Reason: Itching / Pruritus Enoxaparin Sodium (Lovenox) 70 mg SC DAILY [facility] Last Admin: 08/22/17 09:08 Dose: 70 mg Ferrous Sulfate (Feosol) 325 mg PO BID [facility] Last Admin: 08/22/17 17:00 Dose: 325 mg Gabapentin (Neurontin) 300 mg PO HS [facility] Last Admin: 08/21/17 21:57 Dose: Not Given Hydrocortisone (Cortizone 0.5% Cream) 1 applic TOP BID [facility] Last Admin: 08/22/17 17:00 Dose: 1 applic Lidocaine (Lidoderm) 2 ea TD DAILY [facility] Last Admin: 08/22/17 09:07 Dose: Not Given Lorazepam (Ativan) 0.5 mg IVP Q6 PRN PRN Reason: Anxiety Morphine Sulfate (Morphine) 2 mg IVP Q4 PRN PRN Reason: Pain, severe (8-10) Ondansetron HCl (Zofran Odt) 4 mg PO Q8H PRN PRN Reason: Nausea/Vomiting Oxycodone/Acetaminophen (Percocet 5/325 Mg Tab) 1 tab PO Q6 PRN PRN Reason: Pain, severe (8-10) Stop: 08/23/17 12:38 Last Admin: 08/22/17 00:28 Dose: 1 tab Pantoprazole Sodium (Protonix Ec Tab) 40 mg PO DAILY [facility] Last Admin: 08/22/17 09:09 Dose: 40 mg Potassium Chloride (K-Dur 20 Meq Er Tab) 40 meq PO DAILY [facility] Last Admin: 08/22/17 09:07 Dose: 40 meq Senna/Docusate Sodium (Senokot S 50 Mg-8.6 Mg) 2 tab PO HS [facility] Last Admin: 08/21/17 21:55 Dose: 2 tab Zinc Acetate/Diphenhydramine (Benadryl 1% Zinc Acetate -0.1%) 1 applic TOP Q8 PRN PRN Reason: Itching / Pruritus Last Admin: 08/22/17 17:03 Dose: 1 applic Physical Exam - Constitutional Appears: Non-toxic, No Acute Distress - Head Exam Head Exam: ATRAUMATIC, NORMAL INSPECTION, NORMOCEPHALIC - Eye Exam Eye Exam: EOMI - ENT Exam ENT Exam: Mucous Membranes Moist - Respiratory Exam Respiratory Exam: NORMAL BREATHING PATTERN - Cardiovascular Exam Cardiovascular Exam: REGULAR RHYTHM - GI/Abdominal Exam GI & Abdominal Exam: Normal Bowel Sounds. absent: Distended - Extremities Exam Extremities exam: Negative for: calf tenderness, pedal edema - Neurological Exam Neurological exam: Alert, CN II-XII Intact, Oriented x3 - Psychiatric Exam Psychiatric exam: Anxious (mild anxiety), Normal Affect, Normal Mood - Skin Skin Exam: Warm (has a few small stage II tape blisters at the superior aspect of the incision) Results - Vital Signs Recent Vital Signs: Last Vital Signs Temp 98.8 F 08/22/17 16:18 Pulse 99 H 08/22/17 16:18 Resp 20 08/22/17 16:18 BP 107/71 08/22/17 16:18 Pulse Ox 98 08/22/17 16:18 - Labs Result Diagrams: 08/30/17 11:00 08/30/17 11:00 Labs: Laboratory Results - last 24 hr 08/16/17 08/21/17 08/21/17 12:00 15:54 21:34 Factor V see note POC Glucose (mg/dL) 101 72 Assessment & Plan - Assessment and Plan (Free Text) Plan: PT/OT to continue to help increase functional independence Team conference for d/c planning Pain: controlled Vascular: no evidence of DVT GI: No evidence of constipation or diarrhea Impairment code: 08.51 Patient is an excellent acute rehabilitation candidate and will have focused pain management, wound care, PT, OT and recreational therapy to help facilitate a safe and appropriate d/c plan
[2017-08-22] MEDS ORDERED: Oxycodone/Acetaminophen 5/325 mg Tab PO PRN (18:21)
[2017-08-22] MEDS ORDERED: Bacitracin Opht OINT 3.5GM OU SCH (22:00)
[2017-08-22] MEDS: Docusate-Senna 50 mg-8.6 mg Tab PO SCH (22:27)
[2017-08-23] MEDS ORDERED: Silver Sulfadiazine 1% Cream (20 gm) TOP SCH (06:00)
[2017-08-23] MEDS: Enoxaparin 80 mg Syringe SC SCH (09:13)
[2017-08-23] MEDS: Pantoprazole 40 mg EC Tab PO SCH (09:14)
[2017-08-23] MEDS: Lidocaine 5% Patch TD SCH (13:07)
[2017-08-23] MEDS ORDERED: Oxycodone/Acetaminophen 5/325 mg Tab PO PRN (13:32)
--- NOTE | 2017-08-23 13:36 | CP.PCM.HP ---
History of Present Illness - History of Present Illness History of Present Illness: 62F p/w bilateral hip OA for scheduled surgery and now s/p LEFT THR and s/p acute pulmonary embolism post op. She has been transferred from telemetry to acute rehab for further PT after her surgery. Pt is also currently undergoing briding therapy for therapeutic anticoagulation s/p PE PMH: HTN, Depression, OA b/l hips, Prediabetes PSH: C-sxn x1, Tummy prachick, Rt great toe surgery LOURDES: See Med Rec (Called [facility] 08/13/17 to confirm) ALL: NKDA Present on Admission - Present on Admission Any Indicators Present on Admission: No History of DVT/PE: Yes Review of Systems - Review of Systems All systems: reviewed and no additional remarkable complaints except Review of Systems: PER HPI Past Patient History - Past Medical History & Family History Past Medical History?: Yes - Past Social History Smoking Status: Never Smoked - CARDIAC Hx Cardiac Disorders: Yes Hx Hypertension: Yes (NO MEDS) - PULMONARY Hx Pulmonary Embolism: Yes (Hx) - NEUROLOGICAL Hx Neurological Disorder: No - HEENT Hx HEENT Problems: No - RENAL Hx Chronic Kidney Disease: No - ENDOCRINE/METABOLIC Hx Diabetes Mellitus Type 2: Yes ([id number] MEDS) - HEMATOLOGICAL/ONCOLOGICAL Hx Blood Disorders: Yes Hx AIDS: No Hx Anemia: Yes Hx Blood Transfusions: Yes Hx Blood Transfusion Reaction: No Hx Bruising: No Hx Cancer: No Hx Chemotherapy: No Hx Cirrhosis: No Hx Gum Bleeding: No Hx Hemophilia: No Hx Hepatitis A: No Hx Hepatitis B: No Hx Hepatitis C: No Hx Human Immunodeficiency Virus (HIV): No Hx Leukemia: No Hx Metastesis: No Hx Shingles: No Hx Sickle Cell Disease: No Hx Unexplained Bleeding: No Hx von Willebrand's Disease: No - INTEGUMENTARY Hx Dermatological Problems: No Hx Basil Cell: No Hx Sexton: No Hx Cellulitis: No Hx Eczema: No Hx Melanoma: No Hx Psoriasis: No Hx Squamous Cell: No - MUSCULOSKELETAL/RHEUMATOLOGICAL Hx Arthritis: Yes Hx Back Pain: Yes Hx Falls: No Hx Osteoarthritis: Yes - GASTROINTESTINAL Hx Gastrointestinal Disorders: No - GENITOURINARY/GYNECOLOGICAL Hx Genitourinary Disorders: No - PSYCHIATRIC Hx Psychophysiologic Disorder: Yes Hx Anxiety: Yes Hx Depression: No Hx Emotional Abuse: No Hx Physical Abuse: No Hx Substance Use: No - SURGICAL HISTORY Hx Surgeries: Yes Other/Comment: C-SECTIONX1;TUMMY TUCK;EPIDURALX3;RIGHT BIG TOE SURGERY - ANESTHESIA Hx Anesthesia: Yes Hx Anesthesia Reactions: Yes (SEVERE NAUSEA/VOMITTING) Hx Malignant Hyperthermia: No Meds Allergies/Adverse Reactions: Allergies Allergy/AdvReac Type Severity Reaction Status Date / Time No Known Allergies Allergy Verified 08/22/17 18:41 Physical Exam - Constitutional Appears: Non-toxic, No Acute Distress - Head Exam Head Exam: ATRAUMATIC - Eye Exam Eye Exam: EOMI Pupil Exam: PERRL - ENT Exam ENT Exam: Mucous Membranes Moist - Respiratory Exam Respiratory Exam: Clear to Auscultation Bilateral, NORMAL BREATHING PATTERN. absent: Rales, Rhonchi, Wheezes - Cardiovascular Exam Cardiovascular Exam: REGULAR RHYTHM, RRR, +S1, +S2. absent: JVD, Rubs - GI/Abdominal Exam GI & Abdominal Exam: Normal Bowel Sounds, Soft. absent: Tenderness - Extremities Exam Extremities exam: Positive for: normal inspection, pedal pulses present. Negative for: calf tenderness, pedal edema - Neurological Exam Neurological exam: Alert, CN II-XII Intact, Oriented x3, Reflexes Normal - Psychiatric Exam Psychiatric exam: Normal Affect, Normal Mood - Skin Skin Exam: Dry, Intact, Normal Color Results - Vital Signs Recent Vital Signs: Last Vital Signs Temp 98 F 08/23/17 10:00 Pulse 89 08/23/17 10:00 Resp 20 08/23/17 10:00 BP 120/70 08/23/17 10:00 Pulse Ox 98 08/23/17 10:00 Assessment & Plan - Assessment and Plan (Free Text) Assessment: 62 y/o female with PMHx of HTN, Depression, OA b/l hips, s/p left THR and s/p pulmonary embolism admitted to acute rehab for further PT treatment. Plan: 1)Anemia (post-procedural) (improving) -likely secondary to blood loss -s/p 1 unit PRBC transfusion -CBC on 08/20: 8.0/23.6, improved from 08/18: 7.4/21.0 -iv venofer, 1 unit -Iron studies: low iron, low TIBC, low % saturation -FOBT negative 2)Acute Pulmonary Embolism secondary to Post Op Course - Enoxaparin 70mg (1mg/kg) as per Hematology - CT angio chest (08/15): Multifocal small branch pulmonary emboli are identified in the right upper and lower lobes. No left sided pulmonary emboli identified. No large pulmonary artery emboli are identified including the main pulmonary artery and main right and left branches. - Immediate dose of Enoxaparin 110 mg was given SC (08/15), prior to CTA results due to high clinical suspicion of PE - Bilateral lower extremity duplex (08/15): No evidence of deep venous thrombosis - Left upper extremity venous duplex ordered : no UE DVT present - Ortho recommends IVC filter placement - Hematology recommendations appreciated: Patient will need to continue the lovenox for 6 months. If the patient cannot tolerate the anticoagulant or if she has any bleeding with anticoagulant, then IVC filter will be needed - as per Dr. Wilson - IR recommendations appreciated - EKG ordered(08/16): NSR; continuous cardiac monitoring on telemetry - Echo ordered (08/15) - normal echo, EF 60% approx - Troponin levels - negative - Factor 5, Protein C and S, DINO, Antiphospholipid, MTHFR, PT/INR and PTT labs: all negative or WNL respectively -START WARFARIN 5MG 08/23, F/U INR, CURRENTLY BRIDGING THERAPY 3) Left Shoulder/arm pain -left shoulder Xray: positive for degenerative disease, no fracture/abnormality -u/s: negative for DVT -consult with physiatry, Dr. Figueroa for possible EMG appreciated 4) S/P Left THR secondary to Hip OA POD#7 -ortho currently on board, following pt -Pain well-controlled. -dressing changed 08/18 -Patient is followed by physical therapy 5) Depression/Anxiety -c/w home meds: Celexa, Abilify -ativan PRN -patient has been refusing to take her home psych meds 6) Prophylactic Measure: -patient on therapeutic Lovenox as above -SCDs
[2017-08-23] MEDS: Oxycodone/Acetaminophen 5/325 mg Tab PO PRN ×2 (13:51→22:24)
[2017-08-23] MEDS: Docusate-Senna 50 mg-8.6 mg Tab PO SCH (22:23)
[2017-08-24 07:24] LABS: HEMATOCRIT 31.8 % (34.0-47.0); MEAN CORPUSCULAR HEMOGLOBIN 31.4 pg (27.0-31.0); MEAN CORPUSCULAR HGB CONC 33.8 g/dL (33.0-37.0); RED CELL DISTRIBUTION WIDTH 14.6 % (11.5-14.5)
[2017-08-24 07:51] LABS: PARTIAL THROMBOPLASTIN TIME 30.1 Seconds (25.6-37.1)
[2017-08-24] MEDS: Silver Sulfadiazine 1% CREAM (50 gm) TOP SCH (07:59)
[2017-08-24] MEDS: Enoxaparin 80 mg Syringe SC SCH (08:41)
[2017-08-24] MEDS: Lidocaine 5% Patch TD SCH ×2 (08:43→09:00)
[2017-08-24] MEDS: Pantoprazole 40 mg EC Tab PO SCH (08:43)
[2017-08-24] MEDS: Oxycodone/Acetaminophen 5/325 mg Tab PO PRN (09:00)
[2017-08-24] MEDS: Docusate-Senna 50 mg-8.6 mg Tab PO SCH (22:02)
[2017-08-25] MEDS: Silver Sulfadiazine 1% CREAM (50 gm) TOP SCH (06:52)
[2017-08-25 06:54] LABS: HEMATOCRIT 30.1 % (34.0-47.0); MEAN CELL VOLUME 92.7 fl (81.0-99.0); MEAN CORPUSCULAR HEMOGLOBIN 31.5 pg (27.0-31.0); MEAN CORPUSCULAR HGB CONC 33.9 g/dL (33.0-37.0); RED CELL DISTRIBUTION WIDTH 14.6 % (11.5-14.5); WHITE BLOOD COUNT 5.8 K/uL (4.8-10.8)
[2017-08-25 07:05] LABS: ALB/GLOB RATIO 1.1 (1.0-2.1); ALKALINE PHOSPHATASE 70 U/L (38-126); ALT/SGPT 41 U/L (9-52); AST/SGOT 27 U/L (14-36); BILIRUBIN,TOTAL 0.6 mg/dl (0.2-1.3); BLOOD UREA NITROGEN 12 mg/dl (7-17); CALCIUM 9.1 mg/dL (8.4-10.2); CARBON DIOXIDE 27 mmol/L (22-30); CHLORIDE 106 mmol/L (98-107); GFR AFRICAN-AMERICAN > 60; GLUCOSE,RANDOM 107 mg/dL (65-105); SODIUM 141 mmol/l (132-148); TOTAL PROTEIN 6.1 G/DL (6.3-8.2)
[2017-08-25] MEDS: Oxycodone/Acetaminophen 5/325 mg Tab PO PRN ×2 (08:54→21:47)
[2017-08-25] MEDS: Diphenhydramine 1% CREAM TOP PRN (09:10)
[2017-08-25] MEDS: Lidocaine 5% Patch TD SCH (09:11)
[2017-08-25] MEDS: Enoxaparin 80 mg Syringe SC SCH (09:12)
[2017-08-25] MEDS: Pantoprazole 40 mg EC Tab PO SCH (09:13)
--- NOTE | 2017-08-25 14:03 | CP.PCM.PN ---
Subjective - Date & Time of Evaluation Date of Evaluation: 08/25/17 Time of Evaluation: 10:00 - Subjective Subjective: Pt seen and examined at bedside, reports having an episode of anxiety overnight for which xanax helped, she would like a therapist to see her as she feels like she needs someone to talk to regarding every thing that has happened since her surgery. Also concerned about her warfarin and what dietary changes she would need to make, no other complaints otherwise Objective - Vital Signs/Intake and Output Vital Signs (last 24 hours): Temp Pulse Resp BP Pulse Ox 98.4 F 92 H 20 119/55 L 100 08/25/17 09:23 08/25/17 09:23 08/25/17 09:23 08/25/17 09:23 08/25/17 09:23 - Medications Medications: Current Medications Acetaminophen (Tylenol 325mg Tab) 650 mg PO Q4 PRN PRN Reason: Pain, Mild (1-3) Alprazolam (Xanax) 0.5 mg PO Q8 PRN PRN Reason: Anxiety Last Admin: 08/24/17 21:53 Dose: 0.5 mg Aripiprazole (Abilify) 5 mg PO DAILY [facility] Last Admin: 08/25/17 08:55 Dose: Not Given Celecoxib (Celebrex) 200 mg PO Q12 [facility] Last Admin: 08/25/17 09:08 Dose: 200 mg Citalopram Hydrobromide (Celexa) 20 mg PO DAILY [facility] Last Admin: 08/25/17 09:10 Dose: Not Given Enoxaparin Sodium (Lovenox) 70 mg SC DAILY [facility] PRN Reason: Protocol Last Admin: 08/25/17 09:12 Dose: 70 mg Ferrous Sulfate (Feosol) 325 mg PO BID [facility] Last Admin: 08/25/17 09:11 Dose: 325 mg Gabapentin (Neurontin) 300 mg PO HS [facility] Last Admin: 08/24/17 22:02 Dose: Not Given Hydrocortisone (Cortizone 0.5% Cream) 1 applic TOP BID [facility] Last Admin: 08/25/17 09:24 Dose: 1 applic Lidocaine (Lidoderm) 2 ea TD DAILY [facility] Last Admin: 08/25/17 09:11 Dose: Not Given Ondansetron HCl (Zofran Odt) 4 mg PO Q8 PRN PRN Reason: Nausea/Vomiting Oxycodone/Acetaminophen (Percocet 5/325 Mg Tab) 2 tab PO Q6 PRN PRN Reason: Pain, severe (8-10) Stop: 08/26/17 13:33 Oxycodone/Acetaminophen (Percocet 5/325 Mg Tab) 1 tab PO Q6 PRN PRN Reason: Pain, moderate (4-7) Stop: 08/25/17 18:22 Last Admin: 08/25/17 08:54 Dose: 1 tab Pantoprazole Sodium (Protonix Ec Tab) 40 mg PO DAILY [facility] Last Admin: 08/25/17 09:13 Dose: 40 mg Senna/Docusate Sodium (Senokot S 50 Mg-8.6 Mg) 2 tab PO HS [facility] Last Admin: 08/24/17 22:02 Dose: Not Given Silver Sulfadiazine (Silvadene 1% 50 Gm) 1 applic TOP 0600 [facility] Last Admin: 08/25/17 06:52 Dose: 1 applic Warfarin Sodium (Coumadin) 5 mg PO QD5 [facility] PRN Reason: Protocol Stop: 08/25/17 17:01 Zinc Acetate/Diphenhydramine (Benadryl 1% Zinc Acetate -0.1%) 1 applic TOP Q8 PRN PRN Reason: itching/puritis Last Admin: 08/25/17 09:10 Dose: 1 oin - Labs Labs: 08/25/17 05:30 08/25/17 05:30 PT 18.3 Seconds (9.8-13.1) H D 08/25/17 05:30 INR 1.6 (0.9-1.2) H D 08/25/17 05:30 APTT 30.1 Seconds (25.6-37.1) 08/24/17 07:00 - Constitutional Appears: Non-toxic, No Acute Distress - Eye Exam Eye Exam: Normal appearance Pupil Exam: NORMAL ACCOMODATION - Respiratory Exam Respiratory Exam: Clear to Ausculation Bilateral, NORMAL BREATHING PATTERN - Cardiovascular Exam Cardiovascular Exam: REGULAR RHYTHM, +S1, +S2 - GI/Abdominal Exam GI & Abdominal Exam: Soft, Normal Bowel Sounds - Extremities Exam Additional comments: surgical site appears dry and clean Assessment and Plan - Assessment and Plan (Free Text) Assessment: 62 y/o female with PMHx of HTN, Depression, OA b/l hips, s/p left THR with a post-op complication of pulmonary embolism admitted to acute rehab for physical therapy. Plan: 1)Anemia (post-procedural) (improving) -s/p 2 unit PRBC transfusion -iv venofer, 1 unit -Iron studies: low iron, low TIBC, low % saturation -FOBT negative -continue with PO iron 325mg BID 2)Acute Pulmonary Embolism secondary to Post Op Course - Enoxaparin 70mg (1mg/kg) as per Hematology -currently bridging warfarin therapy day 3 on 5mg to be given at 5pm -Addressed all patients concerns regarding warfarin, associate agent insurance sales consulted -INR this morning 1.6 -repeat INR ordered for the morning 3) Left Shoulder/arm pain -left shoulder Xray: positive for degenerative disease, no fracture/abnormality -u/s: negative for DVT -Dr. Figueroa following 4) S/P Left THR secondary to Hip OA POD#9 -ortho currently on board, following pt -Pain well-controlled. -dressing changed 08/18 -Patient is followed by physical therapy 5) Depression/Anxiety -c/w home meds: Celexa, Abilify -ativan PRN -psy consulted 6) Prophylactic Measure: -patient on therapeutic Lovenox and warfarin as above -SCDs
[2017-08-25] MEDS: Docusate-Senna 50 mg-8.6 mg Tab PO SCH (21:40)
[2017-08-26] MEDS: Silver Sulfadiazine 1% CREAM (50 gm) TOP SCH (07:16)
[2017-08-26] MEDS: Oxycodone/Acetaminophen 5/325 mg Tab PO PRN (08:39)
[2017-08-26] MEDS: Diphenhydramine 1% CREAM TOP PRN (08:41)
[2017-08-26] MEDS: Lidocaine 5% Patch TD SCH (08:42)
[2017-08-26] MEDS: Pantoprazole 40 mg EC Tab PO SCH (08:42)
--- NOTE | 2017-08-26 15:37 | CP.PCM.PN ---
Subjective - Date & Time of Evaluation Date of Evaluation: 08/26/17 Time of Evaluation: 15:29 - Subjective Subjective: Pt seems to be in good spirits. Her coumadin was started 2 days ago and her INR today was 2.5. The coumadin is slowly being reduced to see if the INR can be maintained in the therapeutic range with a smaller dose of coumadin. She is doing well with the physical therapy Objective - Vital Signs/Intake and Output Vital Signs (last 24 hours): Temp Pulse Resp BP Pulse Ox 97.9 F 77 19 108/57 L 100 08/26/17 08:13 08/26/17 08:13 08/26/17 08:13 08/26/17 08:13 08/26/17 08:13 - Medications Medications: Current Medications Acetaminophen (Tylenol 325mg Tab) 650 mg PO Q4 PRN PRN Reason: Pain, Mild (1-3) Alprazolam (Xanax) 0.5 mg PO Q8 PRN PRN Reason: Anxiety Last Admin: 08/24/17 21:53 Dose: 0.5 mg Aripiprazole (Abilify) 5 mg PO DAILY [facility] Last Admin: 08/26/17 08:40 Dose: Not Given Celecoxib (Celebrex) 200 mg PO Q12 [facility] Last Admin: 08/26/17 08:41 Dose: 200 mg Citalopram Hydrobromide (Celexa) 20 mg PO DAILY [facility] Last Admin: 08/26/17 08:41 Dose: Not Given Ferrous Sulfate (Feosol) 325 mg PO BID [facility] Last Admin: 08/26/17 08:41 Dose: 325 mg Gabapentin (Neurontin) 300 mg PO HS [facility] Last Admin: 08/25/17 21:40 Dose: Not Given Hydrocortisone (Cortizone 0.5% Cream) 1 applic TOP BID [facility] Last Admin: 08/26/17 09:06 Dose: 1 applic Lidocaine (Lidoderm) 2 ea TD DAILY [facility] Last Admin: 08/26/17 08:42 Dose: Not Given Ondansetron HCl (Zofran Odt) 4 mg PO Q8 PRN PRN Reason: Nausea/Vomiting Oxycodone/Acetaminophen (Percocet 5/325 Mg Tab) 1 tab PO Q6 PRN PRN Reason: Pain, moderate (4-7) Stop: 08/28/17 21:47 Last Admin: 08/26/17 08:39 Dose: 1 tab Pantoprazole Sodium (Protonix Ec Tab) 40 mg PO DAILY [facility] Last Admin: 08/26/17 08:42 Dose: 40 mg Senna/Docusate Sodium (Senokot S 50 Mg-8.6 Mg) 2 tab PO HS [facility] Last Admin: 08/25/17 21:40 Dose: Not Given Silver Sulfadiazine (Silvadene 1% 50 Gm) 1 applic TOP 0600 [facility] Last Admin: 08/26/17 07:16 Dose: 1 applic Warfarin Sodium (Coumadin) 2 mg PO QD5 [facility] PRN Reason: Protocol Stop: 08/26/17 17:01 Zinc Acetate/Diphenhydramine (Benadryl 1% Zinc Acetate -0.1%) 1 applic TOP Q8 PRN PRN Reason: itching/puritis Last Admin: 08/26/17 08:41 Dose: 1 oin - Labs Labs: 08/25/17 05:30 08/25/17 05:30 PT 27.4 Seconds (9.8-13.1) H D 08/26/17 05:30 INR 2.4 (0.9-1.2) H D 08/26/17 05:30 APTT 30.1 Seconds (25.6-37.1) 08/24/17 07:00
[2017-08-26] MEDS: Docusate-Senna 50 mg-8.6 mg Tab PO SCH (21:41)
--- NOTE | 2017-08-26 22:09 | CP.PCM.PCO ---
Summary - Summary of Event Summary of Event: S: pt concerned about BP. denies lightheadedness, dizziness, weakness. admits to fatigue after physical therapy O: VS reviewed: BP 95/58, HR 81, MAP 70 General: NAD HEENT: neck supple, full ROM, EOMI, no scleral icterus Lung: no respiratory distress Ext: moving all ext Neuro: AAOx3 Labs Reviewed from today A/P: 62yo F s/p Left THR POD#10 and PE -monitor BP -c/w PO fluids -start IVF if pt has hypotension in setting of tachycardia or MAP < 65 -medications reviewed, not on antihypertensives, pt has not been taking gabapentin
[2017-08-27] MEDS: Silver Sulfadiazine 1% CREAM (50 gm) TOP SCH (05:51)
[2017-08-27] MEDS: Pantoprazole 40 mg EC Tab PO SCH (08:47)
[2017-08-27] MEDS: Lidocaine 5% Patch TD SCH (08:47)
--- NOTE | 2017-08-27 10:01 | CP.PCM.PN ---
Subjective - Date & Time of Evaluation Date of Evaluation: 08/27/17 Time of Evaluation: 10:01 - Subjective Subjective: POD#11. Pt seen and examined at bedside this morning. Pt complained of low BP during evening vitals check but denied symptoms of low blood pressure. BP recorded was 95/54 without tachycardia. Normal BP of 118/79 today, with normal HR. No new complaints. INR 3.1 today. Case discussed with hematology, will c/w 2.5mg Warfarin and continue checking INRs. Objective - Vital Signs/Intake and Output Vital Signs (last 24 hours): Temp Pulse Resp BP Pulse Ox 98.8 F 62 20 118/79 99 08/27/17 09:20 08/27/17 09:20 08/27/17 09:20 08/27/17 09:20 08/27/17 09:20 - Medications Medications: Current Medications Acetaminophen (Tylenol 325mg Tab) 650 mg PO Q4 PRN PRN Reason: Pain, Mild (1-3) Alprazolam (Xanax) 0.5 mg PO Q8 PRN PRN Reason: Anxiety Last Admin: 08/27/17 08:45 Dose: 0.5 mg Aripiprazole (Abilify) 5 mg PO DAILY [facility] Last Admin: 08/27/17 08:45 Dose: Not Given Celecoxib (Celebrex) 200 mg PO Q12 [facility] Last Admin: 08/27/17 08:46 Dose: 200 mg Citalopram Hydrobromide (Celexa) 20 mg PO DAILY [facility] Last Admin: 08/27/17 08:46 Dose: Not Given Ferrous Sulfate (Feosol) 325 mg PO BID [facility] Last Admin: 08/27/17 08:47 Dose: 325 mg Gabapentin (Neurontin) 300 mg PO HS [facility] Last Admin: 08/26/17 21:41 Dose: Not Given Hydrocortisone (Cortizone 0.5% Cream) 1 applic TOP BID [facility] Last Admin: 08/27/17 08:46 Dose: 1 applic Lidocaine (Lidoderm) 2 ea TD DAILY [facility] Last Admin: 08/27/17 08:47 Dose: Not Given Ondansetron HCl (Zofran Odt) 4 mg PO Q8 PRN PRN Reason: Nausea/Vomiting Oxycodone/Acetaminophen (Percocet 5/325 Mg Tab) 1 tab PO Q6 PRN PRN Reason: Pain, moderate (4-7) Stop: 08/28/17 21:47 Last Admin: 08/26/17 08:39 Dose: 1 tab Pantoprazole Sodium (Protonix Ec Tab) 40 mg PO DAILY [facility] Last Admin: 08/27/17 08:47 Dose: 40 mg Senna/Docusate Sodium (Senokot S 50 Mg-8.6 Mg) 2 tab PO HS [facility] Last Admin: 08/26/17 21:41 Dose: Not Given Silver Sulfadiazine (Silvadene 1% 50 Gm) 1 applic TOP 0600 [facility] Last Admin: 08/27/17 05:51 Dose: 1 applic Warfarin Sodium (Coumadin) 2.5 mg PO QD5 [facility] PRN Reason: Protocol Stop: 08/27/17 17:01 Zinc Acetate/Diphenhydramine (Benadryl 1% Zinc Acetate -0.1%) 1 applic TOP Q8 PRN PRN Reason: itching/puritis Last Admin: 08/26/17 08:41 Dose: 1 oin - Labs Labs: 08/25/17 05:30 08/25/17 05:30 PT 35.3 Seconds (9.8-13.1) H D 08/27/17 06:10 INR 3.1 (0.9-1.2) H 08/27/17 06:10 APTT 30.1 Seconds (25.6-37.1) 08/24/17 07:00 - Constitutional Appears: Non-toxic, No Acute Distress - ENT Exam ENT Exam: Mucous Membranes Moist - Respiratory Exam Respiratory Exam: Clear to Ausculation Bilateral, NORMAL BREATHING PATTERN. absent: Rales, Rhonchi, Wheezes - Cardiovascular Exam Cardiovascular Exam: REGULAR RHYTHM, RRR, +S1, +S2. absent: JVD, Rubs - Extremities Exam Extremities Exam: Normal Inspection Additional comments: LEFT HIP: C/D/I, distal pulses palpation 2+ b/l - Neurological Exam Neurological Exam: Alert, Awake, CN II-XII Intact, Oriented x3 Assessment and Plan - Assessment and Plan (Free Text) Assessment: 62 y/o female with PMHx of HTN, Depression, OA b/l hips, s/p left THR with a post-op complication of pulmonary embolism admitted to acute rehab for physical therapy. Plan: 1)Anemia (post-procedural) (improving) -s/p 2 unit PRBC transfusion -iv venofer, 1 unit -Iron studies: low iron, low TIBC, low % saturation -FOBT negative -continue with PO iron 325mg BID 2)Acute Pulmonary Embolism secondary to Post Op Course - Enoxaparin 70mg (1mg/kg) discontinued -currently bridging warfarin therapy -Addressed all patients concerns regarding warfarin, food vendor consulted -INR this morning 3.1 (08/27) -Warfarin 2.5 mg tonight -repeat INR ordered for the morning 3) Left Shoulder/arm pain -left shoulder Xray: positive for degenerative disease, no fracture/abnormality -u/s: negative for DVT -Dr. Figueroa following 4) S/P Left THR secondary to Hip OA POD#10 -ortho currently on board, following pt -Pain well-controlled. -dressing changed 08/18 -Patient is followed by physical therapy 5) Depression/Anxiety -c/w home meds: Celexa, Abilify -ativan PRN -psy consulted 6) Prophylactic Measure: -patient on Warfarin -SCDs
--- NOTE | 2017-08-27 13:18 | CP.PCM.PN ---
Subjective - Date & Time of Evaluation Date of Evaluation: 08/27/17 Time of Evaluation: 12:58 - Subjective Subjective: Pt has no more symptoms. Her chest pain is better, and she is doing well with her physical chemotherapy her INR was 3.1 today and will continue the coumadin at 2.5 mg daily. She is now wondering if she wants to continue coumadin or change to xarelto. i have explained to her that she can have bleeding with either ,because they are both anticoagulants. Have explained to her the advantages and disadvantages of both. Objective - Vital Signs/Intake and Output Vital Signs (last 24 hours): Temp Pulse Resp BP Pulse Ox 98.8 F 62 20 118/79 99 08/27/17 09:20 08/27/17 09:20 08/27/17 09:20 08/27/17 09:20 08/27/17 09:20 - Medications Medications: Current Medications Acetaminophen (Tylenol 325mg Tab) 650 mg PO Q4 PRN PRN Reason: Pain, Mild (1-3) Alprazolam (Xanax) 0.5 mg PO Q8 PRN PRN Reason: Anxiety Last Admin: 08/27/17 08:45 Dose: 0.5 mg Aripiprazole (Abilify) 5 mg PO DAILY [facility] Last Admin: 08/27/17 08:45 Dose: Not Given Celecoxib (Celebrex) 200 mg PO Q12 [facility] Last Admin: 08/27/17 08:46 Dose: 200 mg Citalopram Hydrobromide (Celexa) 20 mg PO DAILY [facility] Last Admin: 08/27/17 08:46 Dose: Not Given Ferrous Sulfate (Feosol) 325 mg PO BID [facility] Last Admin: 08/27/17 08:47 Dose: 325 mg Gabapentin (Neurontin) 300 mg PO HS [facility] Last Admin: 08/26/17 21:41 Dose: Not Given Hydrocortisone (Cortizone 0.5% Cream) 1 applic TOP BID [facility] Last Admin: 08/27/17 08:46 Dose: 1 applic Lidocaine (Lidoderm) 2 ea TD DAILY [facility] Last Admin: 08/27/17 08:47 Dose: Not Given Ondansetron HCl (Zofran Odt) 4 mg PO Q8 PRN PRN Reason: Nausea/Vomiting Oxycodone/Acetaminophen (Percocet 5/325 Mg Tab) 1 tab PO Q6 PRN PRN Reason: Pain, moderate (4-7) Stop: 08/28/17 21:47 Last Admin: 08/26/17 08:39 Dose: 1 tab Pantoprazole Sodium (Protonix Ec Tab) 40 mg PO DAILY [facility] Last Admin: 08/27/17 08:47 Dose: 40 mg Senna/Docusate Sodium (Senokot S 50 Mg-8.6 Mg) 2 tab PO HS [facility] Last Admin: 08/26/17 21:41 Dose: Not Given Silver Sulfadiazine (Silvadene 1% 50 Gm) 1 applic TOP 0600 [facility] Last Admin: 08/27/17 05:51 Dose: 1 applic Warfarin Sodium (Coumadin) 2.5 mg PO QD5 [facility] PRN Reason: Protocol Stop: 08/27/17 17:01 Zinc Acetate/Diphenhydramine (Benadryl 1% Zinc Acetate -0.1%) 1 applic TOP Q8 PRN PRN Reason: itching/puritis Last Admin: 08/26/17 08:41 Dose: 1 oin - Labs Labs: 08/25/17 05:30 08/25/17 05:30 PT 35.3 Seconds (9.8-13.1) H D 08/27/17 06:10 INR 3.1 (0.9-1.2) H 08/27/17 06:10 APTT 30.1 Seconds (25.6-37.1) 08/24/17 07:00
--- NOTE | 2017-08-27 13:30 | PSY.TMCNF ---
Nursing - Vital Signs Vital Signs (Last 8 hours): Vital Signs 08/27/17 08/27/17 09:00 09:20 Temperature 98.8 F 98.8 F Pulse Rate 62 62 Respiratory 20 20 Rate Blood Pressure 118/79 118/79 O2 Sat by Pulse 99 Oximetry Pain: 0 - Precautions: Precautions: Fall Prevention - Medications/Other Issues Comment: Anxiety, safety - Consults Comment: Dr. Figueroa, Dr. Martinez, Dr. Bernardino Wilson. - Skin Incision Site: Left hip [place] Dressing Status: Clean, Dry, Intact Incision: Angelica Intact, Sutures Intact Incision Line Treatment: Cleanse with NS pat dry apply santyl and apply dressing. - Toileting Toileting: Supervision - Bladder Management Bladder Pattern: Normal Voiding Method: Toilet Bladder Management: Modified Independent - Bowel Management Bowel Pattern: Normal Bowel Management: Modified Independent - Transfers Transfers: Supervision - ADL's ADL's: Minimal Assistance - Pain Management Comments: Percocet 5/325mg po 1tab Q6 prn - Patient/Family Teaching Comments: Hip precaution, safety, pain management - Goals/Time Frame Comments: Per Multidisciplinary plan of care. - Provider Provider: Kalli Gonsalez Physical Therapy - Transfers Sit to Stand: Supervision, Verbal Cues, Contact Guard - Ambulation Level of Assistance: Supervision, Verbal Cues, Contact Guard Distance (ft.): 150 Assistive Devices: Rolling Walker - Stair Negotiation Stairs: Level of Assistance: Verbal Cues, Contact Guard Number of Stairs: 8 Stairs: Assistive Devices: Left Handrail, Right Handrail - Standing Balance Static Stand: Supervision Dynamic Stand: Contact Guard Assist - Pain Pain (assessed during therapy session): 4 Management Techniques: Relaxation Techniques - Insight/Carryover Insight/Carryover: Good - Patient/Family Education Comment: Educated regarding use of adaptive equipement for dressing. Educated regarding relaxation strategies to reduce anxiety related to recovery. - Assessment/Plan Assessment: Pt is provided with leisure tasks to complete during her free time. Pt presented with word finds and coloring tasks to decrease anxiety and increase pt's diversion level. Pt presents with anxiety and decrease mood state at times and is improved when doing a leisure task. Pt will continue to benefit from participating in independent or 1:1 leisure tasks. - Goals Timeframe: 4 weeks Goals: To be Independent with UB and LB dressing. To be Independent with Functional Transfers. To be Independent with Bathing/washing - Provider Therapist: Yue License Number: [id number] Occupational Therapy - Arousal/Attention/Orientation Patient Orientation: Person, Place, Time, Appropriate to Age, Appropriate to Situation - ADL/IADL Self Feeding: Independent, Set-up Help Grooming: Independent, Set-up Help Dressing-Upper Extremity: Independent, Set-up Help Dressing-Lower Extremity: Verbal Cues, Set-up Help, Minimal Assistance - Sitting Balance Static Sitting: Independent without upper extremity support Dynamic Sitting: Reaches within base of support Comment: Fearful of reaching to cross midline to maintain THR precautions - Transfers Wheelchair to Bed Transfers: Supervision, Verbal Cues, Set-up Help Toilet Transfers: Supervision, Verbal Cues, Set-up Help - Wheelchair Management Level of Assistance: Supervision, Verbal Cues Distance (ft.): 200 - Upper Extremity Status Right Upper Extremity Comment: WFL Left Upper Extremity Comment: WFL - Pain Pain (assessed during therapy session): 4 Alleviating Techniques: Relaxation Techniques - Insight/Carryover Insight/Carryover: Good - Patient/Family Education Comment: Educated regarding use of adaptive equipement for dressing. Educated regarding relaxation strategies to reduce anxiety related to recovery. - Assessment/Plan Assessment: Pt is provided with leisure tasks to complete during her free time. Pt presented with word finds and coloring tasks to decrease anxiety and increase pt's diversion level. Pt presents with anxiety and decrease mood state at times and is improved when doing a leisure task. Pt will continue to benefit from participating in independent or 1:1 leisure tasks. - Goals Timeframe: 4 weeks Goals: To be Independent with UB and LB dressing. To be Independent with Functional Transfers. To be Independent with Bathing/washing - Provider Therapist: Radha HEATH/Roshan License Number: [id number] Speech Therapy - Plan Assessment: Pt is provided with leisure tasks to complete during her free time. Pt presented with word finds and coloring tasks to decrease anxiety and increase pt's diversion level. Pt presents with anxiety and decrease mood state at times and is improved when doing a leisure task. Pt will continue to benefit from participating in independent or 1:1 leisure tasks. Recreational Therapy - Participation Participation: Monitors His/Her Own Leisure Time - Attendance Attendance: Daily - Activities Leisure Activities: Socializing - Socialization Level of Socialization: Initiates/interacts freely with care givers and peer - Diversional Time Diversional Time: socializing, word finds, coloring - Assessment Assessment/Plan: Pt is provided with leisure tasks to complete during her free time. Pt presented with word finds and coloring tasks to decrease anxiety and increase pt's diversion level. Pt presents with anxiety and decrease mood state at times and is improved when doing a leisure task. Pt will continue to benefit from participating in independent or 1:1 leisure tasks. Problems Currently Limiting Participation: anxiety, pain, forgetfulness at times , decrease leisure awareness level Goals and Time Frame: Pt will be encouraged to participate in 1:1 and group recreation therapy sessions 3-5x week to improve activity tolerance level, arousal level, diversion, and to improve direction following. - Provider Therapist: Rylee Caldwell, [employer]OGYNAECOLOGIST #[id number] Nutrition - Current Diet Current Diet/ Supplement/ Feedings: Moderate consistent CHO heart healthy diet - Appetite Percent Meal Consumed: 50-74% - Comments Comments: Hip precaution, safety, pain management - Assessment/Goals/Time Frame Assessment/Goals/Time Frame: Anxiety, safety - Provider Provider: Amanda Villagran RD Rehabilitation Plan - Treatment Plan Treatment Plan: Physical Therapy, Occupational Therapy, Dietary, Pain Management , Wound Care, Patient/Family Education - Discharge Plan Estimated Date of Discharge: 09/02/17 Discharge to: Home
--- NOTE | 2017-08-27 14:06 | CP.PCM.PN ---
Subjective - Date & Time of Evaluation Date of Evaluation: 08/27/17 Time of Evaluation: 14:05 - Subjective Subjective: Patient seen in room no significant pain discussed with her at length regarding anxiety with d/c home she has made good gains, but is home alone and has stairs I have discussed with PT/OT to simulate as best as possible her home tasks ie. her bed is high and feet dangle when sitting on mattress. She may need a step stool mukesh to d/c tomorrow Objective - Vital Signs/Intake and Output Vital Signs (last 24 hours): Temp Pulse Resp BP Pulse Ox 98.8 F 62 20 118/79 99 08/27/17 09:20 08/27/17 09:20 08/27/17 09:20 08/27/17 09:20 08/27/17 09:20 - Medications Medications: Current Medications Acetaminophen (Tylenol 325mg Tab) 650 mg PO Q4 PRN PRN Reason: Pain, Mild (1-3) Alprazolam (Xanax) 0.5 mg PO Q8 PRN PRN Reason: Anxiety Last Admin: 08/27/17 08:45 Dose: 0.5 mg Aripiprazole (Abilify) 5 mg PO DAILY [facility] Last Admin: 08/27/17 08:45 Dose: Not Given Celecoxib (Celebrex) 200 mg PO Q12 [facility] Last Admin: 08/27/17 08:46 Dose: 200 mg Citalopram Hydrobromide (Celexa) 20 mg PO DAILY [facility] Last Admin: 08/27/17 08:46 Dose: Not Given Ferrous Sulfate (Feosol) 325 mg PO BID [facility] Last Admin: 08/27/17 08:47 Dose: 325 mg Gabapentin (Neurontin) 300 mg PO HS [facility] Last Admin: 08/26/17 21:41 Dose: Not Given Hydrocortisone (Cortizone 0.5% Cream) 1 applic TOP BID [facility] Last Admin: 08/27/17 08:46 Dose: 1 applic Lidocaine (Lidoderm) 2 ea TD DAILY [facility] Last Admin: 08/27/17 08:47 Dose: Not Given Ondansetron HCl (Zofran Odt) 4 mg PO Q8 PRN PRN Reason: Nausea/Vomiting Oxycodone/Acetaminophen (Percocet 5/325 Mg Tab) 1 tab PO Q6 PRN PRN Reason: Pain, moderate (4-7) Stop: 08/28/17 21:47 Last Admin: 08/26/17 08:39 Dose: 1 tab Pantoprazole Sodium (Protonix Ec Tab) 40 mg PO DAILY [facility] Last Admin: 08/27/17 08:47 Dose: 40 mg Senna/Docusate Sodium (Senokot S 50 Mg-8.6 Mg) 2 tab PO HS [facility] Last Admin: 08/26/17 21:41 Dose: Not Given Silver Sulfadiazine (Silvadene 1% 50 Gm) 1 applic TOP 0600 [facility] Last Admin: 08/27/17 05:51 Dose: 1 applic Warfarin Sodium (Coumadin) 2.5 mg PO QD5 [facility] PRN Reason: Protocol Stop: 08/27/17 17:01 Zinc Acetate/Diphenhydramine (Benadryl 1% Zinc Acetate -0.1%) 1 applic TOP Q8 PRN PRN Reason: itching/puritis Last Admin: 08/26/17 08:41 Dose: 1 oin - Labs Labs: 08/25/17 05:30 08/25/17 05:30 PT 35.3 Seconds (9.8-13.1) H D 08/27/17 06:10 INR 3.1 (0.9-1.2) H 08/27/17 06:10 APTT 30.1 Seconds (25.6-37.1) 08/24/17 07:00
[2017-08-27] MEDS: Oxycodone/Acetaminophen 5/325 mg Tab PO PRN (16:13)
[2017-08-27] MEDS: Acyclovir 5% OINT 15 APPLIC/15 GM EXT SCH ×3 (16:16→21:08)
[2017-08-27] MEDS: Docusate-Senna 50 mg-8.6 mg Tab PO SCH (21:08)
[2017-08-28] MEDS: Acyclovir 5% OINT 15 APPLIC/15 GM EXT SCH ×8 (00:21→22:14)
[2017-08-28] MEDS: Silver Sulfadiazine 1% CREAM (50 gm) TOP SCH (07:18)
[2017-08-28] MEDS: Lidocaine 5% Patch TD SCH (09:30)
[2017-08-28] MEDS: Pantoprazole 40 mg EC Tab PO SCH (09:48)
[2017-08-28] MEDS: Oxycodone/Acetaminophen 5/325 mg Tab PO PRN (10:12)
--- NOTE | 2017-08-28 12:36 | CP.PCM.PN ---
Subjective - Date & Time of Evaluation Date of Evaluation: 08/28/17 Time of Evaluation: 12:32 - Subjective Subjective: Pt is feeling well. Has definitely made up her mind that she wants xarelto instead of coumadin. Will have to check with her insurance if they will approve the xarelto.She is doing well with the Physical therapy Objective - Vital Signs/Intake and Output Vital Signs (last 24 hours): Temp Pulse Resp BP Pulse Ox 98.1 F 89 20 123/70 99 08/27/17 20:15 08/27/17 20:15 08/27/17 20:15 08/27/17 20:15 08/27/17 20:15 - Medications Medications: Current Medications Acetaminophen (Tylenol 325mg Tab) 650 mg PO Q4 PRN PRN Reason: Pain, Mild (1-3) Acyclovir (Zovirax 5% Oint) 1 applic EXT Q3 [facility] Last Admin: 08/28/17 09:50 Dose: 1 applic Alprazolam (Xanax) 0.5 mg PO Q8 PRN PRN Reason: Anxiety Last Admin: 08/27/17 22:00 Dose: 0.5 mg Aripiprazole (Abilify) 5 mg PO DAILY [facility] Last Admin: 08/28/17 09:57 Dose: Not Given Celecoxib (Celebrex) 200 mg PO Q12 [facility] Last Admin: 08/28/17 09:49 Dose: 200 mg Citalopram Hydrobromide (Celexa) 20 mg PO DAILY [facility] Last Admin: 08/28/17 09:57 Dose: Not Given Ferrous Sulfate (Feosol) 325 mg PO BID [facility] Last Admin: 08/28/17 09:49 Dose: 325 mg Gabapentin (Neurontin) 300 mg PO HS [facility] Last Admin: 08/27/17 21:08 Dose: Not Given Hydrocortisone (Cortizone 0.5% Cream) 1 applic TOP BID [facility] Last Admin: 08/28/17 09:49 Dose: 1 applic Lidocaine (Lidoderm) 2 ea TD DAILY [facility] Last Admin: 08/28/17 09:30 Dose: Not Given Ondansetron HCl (Zofran Odt) 4 mg PO Q8 PRN PRN Reason: Nausea/Vomiting Oxycodone/Acetaminophen (Percocet 5/325 Mg Tab) 1 tab PO Q6 PRN PRN Reason: Pain, moderate (4-7) Stop: 08/28/17 21:47 Last Admin: 08/28/17 10:12 Dose: 1 tab Pantoprazole Sodium (Protonix Ec Tab) 40 mg PO DAILY [facility] Last Admin: 08/28/17 09:48 Dose: 40 mg Senna/Docusate Sodium (Senokot S 50 Mg-8.6 Mg) 2 tab PO HS [facility] Last Admin: 08/27/17 21:08 Dose: Not Given Silver Sulfadiazine (Silvadene 1% 50 Gm) 1 applic TOP 0600 [facility] Last Admin: 08/28/17 07:18 Dose: 1 applic Zinc Acetate/Diphenhydramine (Benadryl 1% Zinc Acetate -0.1%) 1 applic TOP Q8 PRN PRN Reason: itching/puritis Last Admin: 08/26/17 08:41 Dose: 1 oin - Labs Labs: 08/25/17 05:30 08/25/17 05:30 PT 28.3 Seconds (9.8-13.1) H D 08/28/17 06:00 INR 2.4 (0.9-1.2) H D 08/28/17 06:00 APTT 30.1 Seconds (25.6-37.1) 08/24/17 07:00
[2017-08-28] MEDS ORDERED: Povidone Iodine Topical 10% Sol ONE (16:46)
--- NOTE | 2017-08-28 17:08 | CP.PCM.PN ---
Subjective - Date & Time of Evaluation Date of Evaluation: 08/28/17 Time of Evaluation: 17:07 - Subjective Subjective: patient seen in room left hip was prepped with betadine and then the mukesh and sutures were removed without incident area was covered with steristrips continue with silvadene over the tape blisters making excellent progress in PT/OT Objective - Vital Signs/Intake and Output Vital Signs (last 24 hours): Temp Pulse Resp BP Pulse Ox 97 F L 75 20 120/67 100 08/28/17 15:20 08/28/17 15:20 08/28/17 15:20 08/28/17 15:20 08/28/17 15:20 - Medications Medications: Current Medications Acetaminophen (Tylenol 325mg Tab) 650 mg PO Q4 PRN PRN Reason: Pain, Mild (1-3) Acyclovir (Zovirax 5% Oint) 1 applic EXT Q3 [facility] Last Admin: 08/28/17 12:47 Dose: 1 applic Alprazolam (Xanax) 0.5 mg PO Q8 PRN PRN Reason: Anxiety Last Admin: 08/27/17 22:00 Dose: 0.5 mg Apixaban (Eliquis) 5 mg PO BID [facility] PRN Reason: Protocol Aripiprazole (Abilify) 5 mg PO DAILY [facility] Last Admin: 08/28/17 09:57 Dose: Not Given Celecoxib (Celebrex) 200 mg PO Q12 [facility] Last Admin: 08/28/17 09:49 Dose: 200 mg Citalopram Hydrobromide (Celexa) 20 mg PO DAILY [facility] Last Admin: 08/28/17 09:57 Dose: Not Given Ferrous Sulfate (Feosol) 325 mg PO BID [facility] Last Admin: 08/28/17 09:49 Dose: 325 mg Gabapentin (Neurontin) 300 mg PO HS [facility] Last Admin: 08/27/17 21:08 Dose: Not Given Hydrocortisone (Cortizone 0.5% Cream) 1 applic TOP BID [facility] Last Admin: 08/28/17 09:49 Dose: 1 applic Lidocaine (Lidoderm) 2 ea TD DAILY [facility] Last Admin: 08/28/17 09:30 Dose: Not Given Ondansetron HCl (Zofran Odt) 4 mg PO Q8 PRN PRN Reason: Nausea/Vomiting Oxycodone/Acetaminophen (Percocet 5/325 Mg Tab) 1 tab PO Q6 PRN PRN Reason: Pain, moderate (4-7) Stop: 08/28/17 21:47 Last Admin: 08/28/17 10:12 Dose: 1 tab Pantoprazole Sodium (Protonix Ec Tab) 40 mg PO DAILY [facility] Last Admin: 08/28/17 09:48 Dose: 40 mg Senna/Docusate Sodium (Senokot S 50 Mg-8.6 Mg) 2 tab PO HS [facility] Last Admin: 08/27/17 21:08 Dose: Not Given Silver Sulfadiazine (Silvadene 1% 50 Gm) 1 applic TOP 0600 [facility] Last Admin: 08/28/17 07:18 Dose: 1 applic Zinc Acetate/Diphenhydramine (Benadryl 1% Zinc Acetate -0.1%) 1 applic TOP Q8 PRN PRN Reason: itching/puritis Last Admin: 08/26/17 08:41 Dose: 1 oin - Labs Labs: 08/25/17 05:30 08/25/17 05:30 PT 28.3 Seconds (9.8-13.1) H D 08/28/17 06:00 INR 2.4 (0.9-1.2) H D 08/28/17 06:00 APTT 30.1 Seconds (25.6-37.1) 08/24/17 07:00
[2017-08-28] MEDS: Docusate-Senna 50 mg-8.6 mg Tab PO SCH (22:14)
[2017-08-29] MEDS: Acyclovir 5% OINT 15 APPLIC/15 GM EXT SCH ×7 (01:55→22:06)
[2017-08-29] MEDS: Silver Sulfadiazine 1% CREAM (50 gm) TOP SCH (06:46)
[2017-08-29] MEDS: Pantoprazole 40 mg EC Tab PO SCH (09:37)
[2017-08-29] MEDS: Lidocaine 5% Patch TD SCH (09:38)
[2017-08-29] MEDS: Diphenhydramine 1% CREAM TOP PRN (09:41)
[2017-08-29] MEDS: Oxycodone/Acetaminophen 5/325 mg Tab PO PRN (10:00)
[2017-08-29] MEDS ORDERED: Oxycodone/Acetaminophen 5/325 mg Tab PO PRN (10:12)
--- NOTE | 2017-08-29 10:12 | CP.PCM.PN ---
Subjective - Date & Time of Evaluation Date of Evaluation: 08/29/17 Time of Evaluation: 10:11 - Subjective Subjective: Pt is doing well with the physical therapy as well as the xarelto. She has been told all the precautions she should take to reduce the chance of bleeding. Objective - Vital Signs/Intake and Output Vital Signs (last 24 hours): Temp Pulse Resp BP Pulse Ox 97.4 F L 74 20 119/68 99 08/29/17 09:27 08/29/17 09:27 08/29/17 09:27 08/29/17 09:27 08/29/17 09:27 - Medications Medications: Current Medications Acetaminophen (Tylenol 325mg Tab) 650 mg PO Q4 PRN PRN Reason: Pain, Mild (1-3) Acyclovir (Zovirax 5% Oint) 1 applic EXT Q3 [facility] Last Admin: 08/29/17 09:41 Dose: 1 applic Alprazolam (Xanax) 0.5 mg PO Q8 PRN PRN Reason: Anxiety Last Admin: 08/27/17 22:00 Dose: 0.5 mg Aripiprazole (Abilify) 5 mg PO DAILY [facility] Last Admin: 08/29/17 09:40 Dose: Not Given Celecoxib (Celebrex) 200 mg PO Q12 [facility] Last Admin: 08/29/17 09:41 Dose: 200 mg Citalopram Hydrobromide (Celexa) 20 mg PO DAILY [facility] Last Admin: 08/29/17 09:40 Dose: Not Given Ferrous Sulfate (Feosol) 325 mg PO BID [facility] Last Admin: 08/29/17 09:41 Dose: 325 mg Gabapentin (Neurontin) 300 mg PO HS [facility] Last Admin: 08/28/17 22:14 Dose: Not Given Hydrocortisone (Cortizone 0.5% Cream) 1 applic TOP BID [facility] Last Admin: 08/29/17 10:01 Dose: 1 applic Lidocaine (Lidoderm) 2 ea TD DAILY [facility] Last Admin: 08/29/17 09:38 Dose: 2 ea Ondansetron HCl (Zofran Odt) 4 mg PO Q8 PRN PRN Reason: Nausea/Vomiting Pantoprazole Sodium (Protonix Ec Tab) 40 mg PO DAILY [facility] Last Admin: 08/29/17 09:37 Dose: 40 mg Rivaroxaban (Xarelto) 15 mg PO BIDWM [facility] PRN Reason: Protocol Last Admin: 08/29/17 10:00 Dose: 15 mg Senna/Docusate Sodium (Senokot S 50 Mg-8.6 Mg) 2 tab PO HS [facility] Last Admin: 08/28/17 22:14 Dose: Not Given Silver Sulfadiazine (Silvadene 1% 50 Gm) 1 applic TOP 0600 [facility] Last Admin: 08/29/17 06:46 Dose: 1 applic Zinc Acetate/Diphenhydramine (Benadryl 1% Zinc Acetate -0.1%) 1 applic TOP Q8 PRN PRN Reason: itching/puritis Last Admin: 08/29/17 09:41 Dose: 1 oin - Labs Labs: 08/25/17 05:30 08/25/17 05:30 PT 28.3 Seconds (9.8-13.1) H D 08/28/17 06:00 INR 2.4 (0.9-1.2) H D 08/28/17 06:00 APTT 30.1 Seconds (25.6-37.1) 08/24/17 07:00
--- NOTE | 2017-08-29 17:18 | CP.PCM.PN ---
Subjective - Date & Time of Evaluation Date of Evaluation: 08/29/17 Time of Evaluation: 17:17 - Subjective Subjective: Patient seen in room feeling ok worked really hard in PT/OT d/c has been increased until saturday to give her better level of function and confidence she will benefit from this time Objective - Vital Signs/Intake and Output Vital Signs (last 24 hours): Temp Pulse Resp BP Pulse Ox 97.4 F L 74 20 119/68 99 08/29/17 09:27 08/29/17 09:27 08/29/17 09:27 08/29/17 09:27 08/29/17 09:27 - Medications Medications: Current Medications Acetaminophen (Tylenol 325mg Tab) 650 mg PO Q4 PRN PRN Reason: Pain, Mild (1-3) Acyclovir (Zovirax 5% Oint) 1 applic EXT Q3 [facility] Last Admin: 08/29/17 16:19 Dose: 1 applic Alprazolam (Xanax) 0.5 mg PO Q8 PRN PRN Reason: Anxiety Last Admin: 08/27/17 22:00 Dose: 0.5 mg Aripiprazole (Abilify) 5 mg PO DAILY [facility] Last Admin: 08/29/17 09:40 Dose: Not Given Celecoxib (Celebrex) 200 mg PO Q12 [facility] Last Admin: 08/29/17 09:41 Dose: 200 mg Citalopram Hydrobromide (Celexa) 20 mg PO DAILY [facility] Last Admin: 08/29/17 09:40 Dose: Not Given Ferrous Sulfate (Feosol) 325 mg PO BID [facility] Last Admin: 08/29/17 16:19 Dose: 325 mg Gabapentin (Neurontin) 300 mg PO HS [facility] Last Admin: 08/28/17 22:14 Dose: Not Given Hydrocortisone (Cortizone 0.5% Cream) 1 applic TOP BID [facility] Last Admin: 08/29/17 16:19 Dose: 1 applic Lidocaine (Lidoderm) 2 ea TD DAILY [facility] Last Admin: 08/29/17 09:38 Dose: 2 ea Ondansetron HCl (Zofran Odt) 4 mg PO Q8 PRN PRN Reason: Nausea/Vomiting Oxycodone/Acetaminophen (Percocet 5/325 Mg Tab) 1 tab PO Q6 PRN PRN Reason: Pain 4-10. Stop: 09/01/17 10:13 Pantoprazole Sodium (Protonix Ec Tab) 40 mg PO DAILY [facility] Last Admin: 08/29/17 09:37 Dose: 40 mg Rivaroxaban (Xarelto) 15 mg PO BIDWM [facility] PRN Reason: Protocol Last Admin: 08/29/17 16:19 Dose: 15 mg Senna/Docusate Sodium (Senokot S 50 Mg-8.6 Mg) 2 tab PO HS [facility] Last Admin: 08/28/17 22:14 Dose: Not Given Silver Sulfadiazine (Silvadene 1% 50 Gm) 1 applic TOP 0600 [facility] Last Admin: 08/29/17 06:46 Dose: 1 applic Zinc Acetate/Diphenhydramine (Benadryl 1% Zinc Acetate -0.1%) 1 applic TOP Q8 PRN PRN Reason: itching/puritis Last Admin: 08/29/17 09:41 Dose: 1 oin - Labs Labs: 08/25/17 05:30 08/25/17 05:30 PT 28.3 Seconds (9.8-13.1) H D 08/28/17 06:00 INR 2.4 (0.9-1.2) H D 08/28/17 06:00 APTT 30.1 Seconds (25.6-37.1) 08/24/17 07:00
[2017-08-29] MEDS: Docusate-Senna 50 mg-8.6 mg Tab PO SCH (22:06)
[2017-08-30] MEDS: Acyclovir 5% OINT 15 APPLIC/15 GM EXT SCH ×8 (01:02→23:21)
[2017-08-30] MEDS: Silver Sulfadiazine 1% CREAM (50 gm) TOP SCH (07:41)
--- NOTE | 2017-08-30 08:16 | CP.PCM.PN ---
<Ace Ayoub - Last Filed: 08/30/17 16:04> Subjective - Date & Time of Evaluation Date of Evaluation: 08/30/17 Time of Evaluation: 08:15 - Subjective Subjective: pt seen and examined at bedside. No acute events overnight. Spotty nosebleed pt reports is likely to a cold she is developing. No other complaints. Denies any other bleeding episodes, fever/chills, CP/SOB/palpitations, calf pain. Objective - Vital Signs/Intake and Output Vital Signs (last 24 hours): Temp Pulse Resp BP Pulse Ox 98.1 F 83 20 131/84 98 08/29/17 20:15 08/29/17 20:15 08/29/17 20:15 08/29/17 20:15 08/29/17 20:15 - Medications Medications: Current Medications Acetaminophen (Tylenol 325mg Tab) 650 mg PO Q4 PRN PRN Reason: Pain, Mild (1-3) Acyclovir (Zovirax 5% Oint) 1 applic EXT Q3 [facility] Last Admin: 08/30/17 07:40 Dose: 1 applic Alprazolam (Xanax) 0.5 mg PO Q8 PRN PRN Reason: Anxiety Last Admin: 08/27/17 22:00 Dose: 0.5 mg Aripiprazole (Abilify) 5 mg PO DAILY [facility] Last Admin: 08/29/17 09:40 Dose: Not Given Celecoxib (Celebrex) 200 mg PO Q12 [facility] Last Admin: 08/29/17 22:04 Dose: 200 mg Citalopram Hydrobromide (Celexa) 20 mg PO DAILY [facility] Last Admin: 08/29/17 09:40 Dose: Not Given Ferrous Sulfate (Feosol) 325 mg PO BID [facility] Last Admin: 08/29/17 16:19 Dose: 325 mg Gabapentin (Neurontin) 300 mg PO HS [facility] Last Admin: 08/29/17 22:05 Dose: Not Given Hydrocortisone (Cortizone 0.5% Cream) 1 applic TOP BID [facility] Last Admin: 08/29/17 16:19 Dose: 1 applic Lidocaine (Lidoderm) 2 ea TD DAILY [facility] Last Admin: 08/29/17 09:38 Dose: 2 ea Ondansetron HCl (Zofran Odt) 4 mg PO Q8 PRN PRN Reason: Nausea/Vomiting Oxycodone/Acetaminophen (Percocet 5/325 Mg Tab) 1 tab PO Q6 PRN PRN Reason: Pain 4-10. Stop: 09/01/17 10:13 Pantoprazole Sodium (Protonix Ec Tab) 40 mg PO DAILY [facility] Last Admin: 08/29/17 09:37 Dose: 40 mg Rivaroxaban (Xarelto) 15 mg PO BIDWM [facility] PRN Reason: Protocol Last Admin: 08/29/17 16:19 Dose: 15 mg Senna/Docusate Sodium (Senokot S 50 Mg-8.6 Mg) 2 tab PO HS [facility] Last Admin: 08/29/17 22:06 Dose: Not Given Silver Sulfadiazine (Silvadene 1% 50 Gm) 1 applic TOP 0600 [facility] Last Admin: 08/30/17 07:41 Dose: 1 applic Zinc Acetate/Diphenhydramine (Benadryl 1% Zinc Acetate -0.1%) 1 applic TOP Q8 PRN PRN Reason: itching/puritis Last Admin: 08/29/17 09:41 Dose: 1 oin - Labs Labs: 08/25/17 05:30 08/25/17 05:30 PT 28.3 Seconds (9.8-13.1) H D 08/28/17 06:00 INR 2.4 (0.9-1.2) H D 08/28/17 06:00 APTT 30.1 Seconds (25.6-37.1) 08/24/17 07:00 - Constitutional Appears: Non-toxic, No Acute Distress - Head Exam Head Exam: ATRAUMATIC, NORMOCEPHALIC - Eye Exam Eye Exam: EOMI. absent: Conjunctival injection, Scleral icterus Pupil Exam: PERRL - Respiratory Exam Respiratory Exam: Clear to Ausculation Bilateral, NORMAL BREATHING PATTERN. absent: Rales, Rhonchi, Wheezes - Cardiovascular Exam Cardiovascular Exam: REGULAR RHYTHM, RRR, +S1, +S2. absent: JVD, Rubs - GI/Abdominal Exam GI & Abdominal Exam: Soft, Normal Bowel Sounds. absent: Tenderness - Neurological Exam Neurological Exam: Alert, Awake, CN II-XII Intact, Oriented x3 - Psychiatric Exam Psychiatric exam: Normal Affect, Normal Mood - Skin Skin Exam: Dry, Intact, Normal Color Assessment and Plan - Assessment and Plan (Free Text) Assessment: 62 y/o female with PMHx of HTN, Depression, OA b/l hips, s/p left THR with a post-op complication of pulmonary embolism admitted to acute rehab for physical therapy. Plan: 1)Anemia (post-procedural) (improving) -s/p 2 unit PRBC transfusion -IV venofer, 1 unit -continue with PO iron 325mg BID -CBC/BMP ordered for 08/31 morning, will f/u results 2)Acute Pulmonary Embolism secondary to Post Op Course -currently in treatment course -Xarelto 15mg BID 3) Left Shoulder/arm pain -left shoulder Xray: positive for degenerative disease, no fracture/abnormality -u/s: negative for DVT -Dr. Figueroa following -no acute intervention at this point -PT 4) S/P Left THR secondary to Hip OA -Pain well-controlled. -Patient is followed by physical therapy 5) Depression/Anxiety -c/w home meds: Celexa, Abilify -ativan PRN -psy consulted 6) Prophylactic Measure: -patient on Xarelto 15mg BID -SCDs/PT <Alicia Cabrera - Last Filed: 08/31/17 09:36> Objective - Vital Signs/Intake and Output Vital Signs (last 24 hours): Temp Pulse Resp BP Pulse Ox 97.5 F L 73 20 127/76 98 08/31/17 08:26 08/31/17 08:26 08/31/17 08:26 08/31/17 08:26 08/31/17 08:26 - Medications Medications: Current Medications Acetaminophen (Tylenol 325mg Tab) 650 mg PO Q4 PRN PRN Reason: Pain, Mild (1-3) Acyclovir (Zovirax 5% Oint) 1 applic EXT Q3 [facility] Last Admin: 08/31/17 06:56 Dose: 1 applic Alprazolam (Xanax) 0.5 mg PO Q8 PRN PRN Reason: Anxiety Last Admin: 08/27/17 22:00 Dose: 0.5 mg Aripiprazole (Abilify) 5 mg PO DAILY [facility] Last Admin: 08/31/17 08:32 Dose: Not Given Celecoxib (Celebrex) 200 mg PO Q12 [facility] Last Admin: 08/31/17 08:32 Dose: 200 mg Citalopram Hydrobromide (Celexa) 20 mg PO DAILY [facility] Last Admin: 08/31/17 08:32 Dose: Not Given Ferrous Sulfate (Feosol) 325 mg PO BID [facility] Last Admin: 08/31/17 08:32 Dose: 325 mg Gabapentin (Neurontin) 300 mg PO HS [facility] Last Admin: 08/30/17 22:49 Dose: Not Given Hydrocortisone (Cortizone 0.5% Cream) 1 applic TOP BID [facility] Last Admin: 08/31/17 08:32 Dose: 1 applic Lidocaine (Lidoderm) 2 ea TD DAILY [facility] Last Admin: 08/31/17 08:33 Dose: Not Given Ondansetron HCl (Zofran Odt) 4 mg PO Q8 PRN PRN Reason: Nausea/Vomiting Oxycodone/Acetaminophen (Percocet 5/325 Mg Tab) 1 tab PO Q6 PRN PRN Reason: Pain 4-10. Stop: 09/01/17 10:13 Last Admin: 08/30/17 09:00 Dose: 1 tab Pantoprazole Sodium (Protonix Ec Tab) 40 mg PO DAILY [facility] Last Admin: 08/31/17 08:33 Dose: 40 mg Rivaroxaban (Xarelto) 15 mg PO BIDWM [facility] PRN Reason: Protocol Last Admin: 08/31/17 08:32 Dose: 15 mg Senna/Docusate Sodium (Senokot S 50 Mg-8.6 Mg) 2 tab PO HS [facility] Last Admin: 08/30/17 23:21 Dose: Not Given Silver Sulfadiazine (Silvadene 1% 50 Gm) 1 applic TOP 0600 [facility] Last Admin: 08/31/17 06:56 Dose: 1 applic Zinc Acetate/Diphenhydramine (Benadryl 1% Zinc Acetate -0.1%) 1 applic TOP Q8 PRN PRN Reason: itching/puritis Last Admin: 08/31/17 08:32 Dose: 1 oin - Labs Labs: 08/30/17 11:00 08/30/17 11:00 PT 28.3 Seconds (9.8-13.1) H D 08/28/17 06:00 INR 2.4 (0.9-1.2) H D 08/28/17 06:00 APTT 30.1 Seconds (25.6-37.1) 08/24/17 07:00 Attending/Attestation - Attestation I have personally seen and examined this patient.: Yes I have fully participated in the care of the patient.: Yes I have reviewed all pertinent clinical information, including history, physical exam and plan: Yes Notes (Text): 08/31/17 09:35 Patient seen and examined. Case discussed with resident. Agree with findings and plan.
[2017-08-30] MEDS: Lidocaine 5% Patch TD SCH (08:45)
[2017-08-30] MEDS: Diphenhydramine 1% CREAM TOP PRN (08:46)
[2017-08-30] MEDS: Pantoprazole 40 mg EC Tab PO SCH (08:47)
[2017-08-30] MEDS: Oxycodone/Acetaminophen 5/325 mg Tab PO PRN (09:00)
--- NOTE | 2017-08-30 10:40 | CP.PCM.CON ---
History of Present Illness - History of Present Illness History of Present Illness: Pt is a 62 year old female admitted to [facility] and referred to the data analyst report writer for evaluation. Pt recently had hip surgery. See medical record for complete medical history and medication list. Social History: pt lives in [place]. She has been for 10 years/attempting to divorce. She has two children. Pt reported significant tensions due to the divorce and family issues. Psych: pt is currently seen a the [facility] [place]. Pt not happy with her therapist/ MD. Pt encouraged to change therapists/MD for increased satisfaction. Pt provided support over tensions. Plan: Continued Supportive therapy Dx: Depression recurrent Past Patient History - Past Medical History & Family History Past Medical History?: Yes - Past Social History Smoking Status: Never Smoked - CARDIAC Hx Cardiac Disorders: Yes Hx Hypertension: Yes (NO MEDS) - PULMONARY Hx Pulmonary Embolism: Yes (Hx) - NEUROLOGICAL Hx Neurological Disorder: No - HEENT Hx HEENT Problems: No - RENAL Hx Chronic Kidney Disease: No - ENDOCRINE/METABOLIC Hx Diabetes Mellitus Type 2: Yes ([id number] MEDS) - HEMATOLOGICAL/ONCOLOGICAL Hx Blood Disorders: Yes Hx AIDS: No Hx Anemia: Yes Hx Blood Transfusions: Yes Hx Blood Transfusion Reaction: No Hx Bruising: No Hx Cancer: No Hx Chemotherapy: No Hx Cirrhosis: No Hx Gum Bleeding: No Hx Hemophilia: No Hx Hepatitis A: No Hx Hepatitis B: No Hx Hepatitis C: No Hx Human Immunodeficiency Virus (HIV): No Hx Leukemia: No Hx Metastesis: No Hx Shingles: No Hx Sickle Cell Disease: No Hx Unexplained Bleeding: No Hx von Willebrand's Disease: No - INTEGUMENTARY Hx Dermatological Problems: No Hx Basil Cell: No Hx Sexton: No Hx Cellulitis: No Hx Eczema: No Hx Melanoma: No Hx Psoriasis: No Hx Squamous Cell: No - MUSCULOSKELETAL/RHEUMATOLOGICAL Hx Arthritis: Yes Hx Back Pain: Yes Hx Falls: No Hx Osteoarthritis: Yes - GASTROINTESTINAL Hx Gastrointestinal Disorders: No - GENITOURINARY/GYNECOLOGICAL Hx Genitourinary Disorders: No - PSYCHIATRIC Hx Psychophysiologic Disorder: Yes Hx Anxiety: Yes Hx Depression: No Hx Emotional Abuse: No Hx Physical Abuse: No Hx Substance Use: No - SURGICAL HISTORY Hx Surgeries: Yes Other/Comment: C-SECTIONX1;TUMMY TUCK;EPIDURALX3;RIGHT BIG TOE SURGERY - ANESTHESIA Hx Anesthesia: Yes Hx Anesthesia Reactions: Yes (SEVERE NAUSEA/VOMITTING) Hx Malignant Hyperthermia: No Meds Allergies/Adverse Reactions: Allergies Allergy/AdvReac Type Severity Reaction Status Date / Time No Known Allergies Allergy Verified 08/22/17 18:41 - Medications Medications: Current Medications Acetaminophen (Tylenol 325mg Tab) 650 mg PO Q4 PRN PRN Reason: Pain, Mild (1-3) Acyclovir (Zovirax 5% Oint) 1 applic EXT Q3 [facility] Last Admin: 08/30/17 07:40 Dose: 1 applic Alprazolam (Xanax) 0.5 mg PO Q8 PRN PRN Reason: Anxiety Last Admin: 08/27/17 22:00 Dose: 0.5 mg Aripiprazole (Abilify) 5 mg PO DAILY [facility] Last Admin: 08/30/17 08:44 Dose: Not Given Celecoxib (Celebrex) 200 mg PO Q12 [facility] Last Admin: 08/30/17 08:43 Dose: 200 mg Citalopram Hydrobromide (Celexa) 20 mg PO DAILY [facility] Last Admin: 08/30/17 08:44 Dose: Not Given Ferrous Sulfate (Feosol) 325 mg PO BID [facility] Last Admin: 08/30/17 08:47 Dose: 325 mg Gabapentin (Neurontin) 300 mg PO HS [facility] Last Admin: 08/29/17 22:05 Dose: Not Given Hydrocortisone (Cortizone 0.5% Cream) 1 applic TOP BID [facility] Last Admin: 08/30/17 08:45 Dose: 1 applic Lidocaine (Lidoderm) 2 ea TD DAILY [facility] Last Admin: 08/30/17 08:45 Dose: 2 ea Ondansetron HCl (Zofran Odt) 4 mg PO Q8 PRN PRN Reason: Nausea/Vomiting Oxycodone/Acetaminophen (Percocet 5/325 Mg Tab) 1 tab PO Q6 PRN PRN Reason: Pain 4-10. Stop: 09/01/17 10:13 Last Admin: 08/30/17 09:00 Dose: 1 tab Pantoprazole Sodium (Protonix Ec Tab) 40 mg PO DAILY [facility] Last Admin: 08/30/17 08:47 Dose: 40 mg Rivaroxaban (Xarelto) 15 mg PO BIDWM [facility] PRN Reason: Protocol Last Admin: 08/30/17 08:43 Dose: 15 mg Senna/Docusate Sodium (Senokot S 50 Mg-8.6 Mg) 2 tab PO HS [facility] Last Admin: 08/29/17 22:06 Dose: Not Given Silver Sulfadiazine (Silvadene 1% 50 Gm) 1 applic TOP 0600 [facility] Last Admin: 08/30/17 07:41 Dose: 1 applic Zinc Acetate/Diphenhydramine (Benadryl 1% Zinc Acetate -0.1%) 1 applic TOP Q8 PRN PRN Reason: itching/puritis Last Admin: 08/30/17 08:46 Dose: 1 oin Results - Vital Signs Recent Vital Signs: Last Vital Signs Temp 98.1 F 08/29/17 20:15 Pulse 83 08/29/17 20:15 Resp 20 08/29/17 20:15 BP 131/84 08/29/17 20:15 Pulse Ox 98 08/29/17 20:15 - Labs Result Diagrams: 08/25/17 05:30 08/25/17 05:30 Labs: Laboratory Results - last 24 hr 08/30/17 06:38 POC Glucose (mg/dL) 108
[2017-08-30 11:22] LABS: HEMATOCRIT 34.7 % (34.0-47.0); MEAN CELL VOLUME 93.2 fl (81.0-99.0); MEAN CORPUSCULAR HEMOGLOBIN 30.7 pg (27.0-31.0); RED CELL DISTRIBUTION WIDTH 14.6 % (11.5-14.5); WHITE BLOOD COUNT 5.7 K/uL (4.8-10.8)
[2017-08-30 11:36] LABS: BLOOD UREA NITROGEN 11 mg/dl (7-17); CARBON DIOXIDE 27 mmol/L (22-30); CHLORIDE 104 mmol/L (98-107); GFR AFRICAN-AMERICAN > 60; GLUCOSE,RANDOM 114 mg/dL (65-105); POTASSIUM 3.8 MMOL/L (3.6-5.0); SODIUM 139 mmol/l (132-148)
--- NOTE | 2017-08-30 11:42 | CP.PCM.PN ---
Subjective - Date & Time of Evaluation Date of Evaluation: 08/30/17 Time of Evaluation: 11:39 - Subjective Subjective: Pt is doing well. She has about 1 drop of blood from her nose today, but it stopped and there was no more,. With the PT she feels that her legs are getting better and stronger Objective - Vital Signs/Intake and Output Vital Signs (last 24 hours): Temp Pulse Resp BP Pulse Ox 97.7 F 86 20 124/79 98 08/30/17 10:00 08/30/17 10:00 08/30/17 10:00 08/30/17 10:00 08/29/17 20:15 - Medications Medications: Current Medications Acetaminophen (Tylenol 325mg Tab) 650 mg PO Q4 PRN PRN Reason: Pain, Mild (1-3) Acyclovir (Zovirax 5% Oint) 1 applic EXT Q3 [facility] Last Admin: 08/30/17 10:42 Dose: 1 applic Alprazolam (Xanax) 0.5 mg PO Q8 PRN PRN Reason: Anxiety Last Admin: 08/27/17 22:00 Dose: 0.5 mg Aripiprazole (Abilify) 5 mg PO DAILY [facility] Last Admin: 08/30/17 08:44 Dose: Not Given Celecoxib (Celebrex) 200 mg PO Q12 [facility] Last Admin: 08/30/17 08:43 Dose: 200 mg Citalopram Hydrobromide (Celexa) 20 mg PO DAILY [facility] Last Admin: 08/30/17 08:44 Dose: Not Given Ferrous Sulfate (Feosol) 325 mg PO BID [facility] Last Admin: 08/30/17 08:47 Dose: 325 mg Gabapentin (Neurontin) 300 mg PO HS [facility] Last Admin: 08/29/17 22:05 Dose: Not Given Hydrocortisone (Cortizone 0.5% Cream) 1 applic TOP BID [facility] Last Admin: 08/30/17 08:45 Dose: 1 applic Lidocaine (Lidoderm) 2 ea TD DAILY [facility] Last Admin: 08/30/17 08:45 Dose: 2 ea Ondansetron HCl (Zofran Odt) 4 mg PO Q8 PRN PRN Reason: Nausea/Vomiting Oxycodone/Acetaminophen (Percocet 5/325 Mg Tab) 1 tab PO Q6 PRN PRN Reason: Pain 4-10. Stop: 09/01/17 10:13 Last Admin: 08/30/17 09:00 Dose: 1 tab Pantoprazole Sodium (Protonix Ec Tab) 40 mg PO DAILY [facility] Last Admin: 08/30/17 08:47 Dose: 40 mg Rivaroxaban (Xarelto) 15 mg PO BIDWM [facility] PRN Reason: Protocol Last Admin: 08/30/17 08:43 Dose: 15 mg Senna/Docusate Sodium (Senokot S 50 Mg-8.6 Mg) 2 tab PO HS [facility] Last Admin: 08/29/17 22:06 Dose: Not Given Silver Sulfadiazine (Silvadene 1% 50 Gm) 1 applic TOP 0600 [facility] Last Admin: 08/30/17 07:41 Dose: 1 applic Zinc Acetate/Diphenhydramine (Benadryl 1% Zinc Acetate -0.1%) 1 applic TOP Q8 PRN PRN Reason: itching/puritis Last Admin: 08/30/17 08:46 Dose: 1 oin - Labs Labs: 08/30/17 11:00 08/25/17 05:30 PT 28.3 Seconds (9.8-13.1) H D 08/28/17 06:00 INR 2.4 (0.9-1.2) H D 08/28/17 06:00 APTT 30.1 Seconds (25.6-37.1) 08/24/17 07:00
[2017-08-30] MEDS: Docusate-Senna 50 mg-8.6 mg Tab PO SCH (23:21)
[2017-08-31] MEDS: Acyclovir 5% OINT 15 APPLIC/15 GM EXT SCH ×8 (01:19→21:33)
[2017-08-31] MEDS: Silver Sulfadiazine 1% CREAM (50 gm) TOP SCH (06:56)
[2017-08-31] MEDS: Diphenhydramine 1% CREAM TOP PRN (08:32)
[2017-08-31] MEDS: Lidocaine 5% Patch TD SCH (08:33)
[2017-08-31] MEDS: Pantoprazole 40 mg EC Tab PO SCH (08:33)
[2017-08-31] MEDS: Oxycodone/Acetaminophen 5/325 mg Tab PO PRN (09:42)
--- NOTE | 2017-08-31 09:44 | CP.PCM.PN ---
Subjective - Date & Time of Evaluation Date of Evaluation: 08/31/17 Time of Evaluation: 09:43 - Subjective Subjective: Pt has been stable, her hgb is 11.4gms , no bleeding from any site. doing well with Physical therapy.Will probably be discharged on Saturday Objective - Vital Signs/Intake and Output Vital Signs (last 24 hours): Temp Pulse Resp BP Pulse Ox 97.5 F L 73 20 127/76 98 08/31/17 08:26 08/31/17 08:26 08/31/17 08:26 08/31/17 08:26 08/31/17 08:26 - Medications Medications: Current Medications Acetaminophen (Tylenol 325mg Tab) 650 mg PO Q4 PRN PRN Reason: Pain, Mild (1-3) Acyclovir (Zovirax 5% Oint) 1 applic EXT Q3 [facility] Last Admin: 08/31/17 06:56 Dose: 1 applic Alprazolam (Xanax) 0.5 mg PO Q8 PRN PRN Reason: Anxiety Last Admin: 08/27/17 22:00 Dose: 0.5 mg Aripiprazole (Abilify) 5 mg PO DAILY [facility] Last Admin: 08/31/17 08:32 Dose: Not Given Celecoxib (Celebrex) 200 mg PO Q12 [facility] Last Admin: 08/31/17 08:32 Dose: 200 mg Citalopram Hydrobromide (Celexa) 20 mg PO DAILY [facility] Last Admin: 08/31/17 08:32 Dose: Not Given Ferrous Sulfate (Feosol) 325 mg PO BID [facility] Last Admin: 08/31/17 08:32 Dose: 325 mg Gabapentin (Neurontin) 300 mg PO HS [facility] Last Admin: 08/30/17 22:49 Dose: Not Given Hydrocortisone (Cortizone 0.5% Cream) 1 applic TOP BID [facility] Last Admin: 08/31/17 08:32 Dose: 1 applic Lidocaine (Lidoderm) 2 ea TD DAILY [facility] Last Admin: 08/31/17 08:33 Dose: Not Given Ondansetron HCl (Zofran Odt) 4 mg PO Q8 PRN PRN Reason: Nausea/Vomiting Oxycodone/Acetaminophen (Percocet 5/325 Mg Tab) 1 tab PO Q6 PRN PRN Reason: Pain 4-10. Stop: 09/01/17 10:13 Last Admin: 08/30/17 09:00 Dose: 1 tab Pantoprazole Sodium (Protonix Ec Tab) 40 mg PO DAILY [facility] Last Admin: 08/31/17 08:33 Dose: 40 mg Rivaroxaban (Xarelto) 15 mg PO BIDWM [facility] PRN Reason: Protocol Last Admin: 08/31/17 08:32 Dose: 15 mg Senna/Docusate Sodium (Senokot S 50 Mg-8.6 Mg) 2 tab PO HS [facility] Last Admin: 08/30/17 23:21 Dose: Not Given Silver Sulfadiazine (Silvadene 1% 50 Gm) 1 applic TOP 0600 [facility] Last Admin: 08/31/17 06:56 Dose: 1 applic Zinc Acetate/Diphenhydramine (Benadryl 1% Zinc Acetate -0.1%) 1 applic TOP Q8 PRN PRN Reason: itching/puritis Last Admin: 08/31/17 08:32 Dose: 1 oin - Labs Labs: 08/30/17 11:00 08/30/17 11:00 PT 28.3 Seconds (9.8-13.1) H D 08/28/17 06:00 INR 2.4 (0.9-1.2) H D 08/28/17 06:00 APTT 30.1 Seconds (25.6-37.1) 08/24/17 07:00
[2017-08-31] MEDS: Docusate-Senna 50 mg-8.6 mg Tab PO SCH (21:32)
[2017-09-01] MEDS: Acyclovir 5% OINT 15 APPLIC/15 GM EXT SCH ×8 (00:38→22:09)
[2017-09-01] MEDS: Silver Sulfadiazine 1% CREAM (50 gm) TOP SCH (06:43)
[2017-09-01 08:34] VITALS: RESP 20
[2017-09-01] MEDS: Diphenhydramine 1% CREAM TOP PRN (08:38)
[2017-09-01] MEDS: Pantoprazole 40 mg EC Tab PO SCH (08:40)
[2017-09-01] MEDS: Lidocaine 5% Patch TD SCH (08:40)
[2017-09-01] MEDS: Docusate-Senna 50 mg-8.6 mg Tab PO SCH (22:09)
[2017-09-02] MEDS: Diphenhydramine 1% CREAM TOP PRN (00:11)
[2017-09-02] MEDS: Acyclovir 5% OINT 15 APPLIC/15 GM EXT SCH ×6 (00:19→17:22)
[2017-09-02 01:34] VITALS: TEMP 98.2; O2SAT 97
[2017-09-02] MEDS: Silver Sulfadiazine 1% CREAM (50 gm) TOP SCH (06:13)
[2017-09-02] MEDS: Pantoprazole 40 mg EC Tab PO SCH (08:34)
[2017-09-02 09:19] VITALS: BP 123/75; PULSE 82
--- NOTE | 2017-09-02 13:07 | CP.PCM.DIS ---
Provider - Provider Date of Admission: 08/22/17 17:27 Attending physician: Nancy Alford MD Primary care physician: Landon Cuellar MD Time Spent in preparation of Discharge (in minutes): 35 Diagnosis - Discharge Diagnosis (1) Acute pulmonary embolism Status: Acute (2) Status post THR (total hip replacement) Status: Acute Hospital Course - Lab Results Lab Results: Most Recent Lab Values WBC 5.7 K/uL (4.8-10.8) 08/30/17 11:00 RBC 3.72 Mil/uL (3.80-5.20) L 08/30/17 11:00 Hgb 11.4 g/dL (12.0-16.0) L 08/30/17 11:00 Hct 34.7 % (34.0-47.0) 08/30/17 11:00 MCV 93.2 fl (81.0-99.0) 08/30/17 11:00 MCH 30.7 pg (27.0-31.0) 08/30/17 11:00 MCHC 33.0 g/dL (33.0-37.0) 08/30/17 11:00 RDW 14.6 % (11.5-14.5) H 08/30/17 11:00 Plt Count 434 K/uL (130-400) H 08/30/17 11:00 PT 28.3 Seconds (9.8-13.1) H D 08/28/17 06:00 INR 2.4 (0.9-1.2) H D 08/28/17 06:00 APTT 30.1 Seconds (25.6-37.1) 08/24/17 07:00 Sodium 139 mmol/l (132-148) 08/30/17 11:00 Potassium 3.8 MMOL/L (3.6-5.0) 08/30/17 11:00 Chloride 104 mmol/L (98-107) 08/30/17 11:00 Carbon Dioxide 27 mmol/L (22-30) 08/30/17 11:00 Anion Gap 11 (10-20) 08/30/17 11:00 BUN 11 mg/dl (7-17) 08/30/17 11:00 Creatinine 0.6 mg/dL (0.7-1.2) L 08/30/17 11:00 Est GFR ( Amer) > 60 08/30/17 11:00 Est GFR (Non-Af Amer) > 60 08/30/17 11:00 POC Glucose (mg/dL) 122 mg/dL (65-110) H 09/02/17 06:11 Random Glucose 114 mg/dL (65-105) H 08/30/17 11:00 Hemoglobin A1c 5.7 % (4.2-6.5) 08/24/17 10:02 Calcium 9.0 mg/dL (8.4-10.2) 08/30/17 11:00 Total Bilirubin 0.6 mg/dl (0.2-1.3) 08/25/17 05:30 AST 27 U/L (14-36) 08/25/17 05:30 ALT 41 U/L (9-52) 08/25/17 05:30 Alkaline Phosphatase 70 U/L (38-126) 08/25/17 05:30 Total Protein 6.1 G/DL (6.3-8.2) L 08/25/17 05:30 Albumin 3.2 g/dL (3.5-5.0) L 08/25/17 05:30 Globulin 2.9 gm/dL (2.2-3.9) 08/25/17 05:30 Albumin/Globulin Ratio 1.1 (1.0-2.1) 08/25/17 05:30 - Hospital Course Hospital Course: 62 y/o female with PMHx of ostearthitis under went L THR. In the post op period , it was complicated with an acute PE. Pt was started on Xarelto. Pt tolerated PT well during her say in rehab. After an uneventful stay, she was discharged in stable condition. Meds on DC: Xarelto 15mg BID x 21 days Xarelto 20mg QD Ferrous sulfate 325mg BID Discharge Exam - Head Exam Head Exam: ATRAUMATIC, NORMAL INSPECTION, NORMOCEPHALIC - Eye Exam Eye Exam: EOMI Pupil Exam: PERRL - ENT Exam ENT Exam: Mucous Membranes Moist - Respiratory Exam Respiratory Exam: Clear to PA & Lateral, NORMAL BREATHING PATTERN, UNREMARKABLE - Cardiovascular Exam Cardiovascular Exam: REGULAR RHYTHM, RRR, +S1, +S2 - Extremities Exam Extremities exam: normal inspection - Neurological Exam Neurological exam: Alert, CN II-XII Intact, Oriented x3, Reflexes Normal Discharge Plan - Discharge Medications Prescriptions: Acyclovir 5% [Zovirax 5% Oint] 1 applic EXT Q3 #1 tube Docusate Sodium/Sennosides A [Senokot S 50 MG-8.6 MG] 2 tab PO HS 30 Days tab Ferrous Sulfate [Feosol] 325 mg PO BID 30 Days tab Lidocaine 5% [Lidoderm] 2 patch TOP DAILY 28 Days patch - Follow Up Plan Condition: GOOD Disposition: HOME/ ROUTINE Instructions: Rivaroxaban (By mouth), Vitamin K in Foods (GEN) Additional Instructions: Pt to follow up with her PCP on SaturdaySeptember 11 at 9:30am at the [facility] located at [address] [place] [address]. Referrals: Sandy Davis MD [Resident] - Claudia Pfeiffer MD [Staff Provider] -
[2017-09-02] MEDS: Lidocaine 5% Patch TD SCH (17:22)
== END 2017-09-02 06:55 | disposition home health service (06) | DRG 560 ==
PROVIDERS: ADMIT Family Medicine Geriatric Medicine; ATTEND Family Medicine Geriatric Medicine
PROC: F07M6FZ Therapeutic Exercise Treatment of Musculoskeletal System - Whole Body using Assistive, Adaptive, Supportive or Protective Equipment (ICD-10-PCS; principal; 2017-08-22)
PROC: F07Z9FZ Gait Training/Functional Ambulation Treatment using Assistive, Adaptive, Supportive or Protective Equipment (ICD-10-PCS; 2017-08-22)
PROC: F08Z4FZ Home Management Treatment using Assistive, Adaptive, Supportive or Protective Equipment (ICD-10-PCS; 2017-08-22)
DX: Z47.1 Aftercare following joint replacement surgery (principal); I26.99 Other pulmonary embolism without acute cor pulmonale; I10 Essential (primary) hypertension; F32.9 Major depressive disorder, single episode, unspecified; E11.9 Type 2 diabetes mellitus without complications; D64.9 Anemia, unspecified; F41.9 Anxiety disorder, unspecified; Z96.642 Presence of left artificial hip joint; M16.0 Bilateral primary osteoarthritis of hip; M48.061 Spinal stenosis, lumbar region without neurogenic claudication; M54.12 Radiculopathy, cervical region; R04.0 Epistaxis; R73.03 Prediabetes; Z79.01 Long term (current) use of anticoagulants

== ENCOUNTER 2018-04-03 15:12 | Emergency (ER) | payer OTHER ==
[2018-04-03 15:13] VITALS: BMI 31.2
[2018-04-03 15:27] VITALS: TEMP 98.5; O2SAT 98
--- NOTE | 2018-04-03 15:57 | ED PDOC ---
HPI: Chest Pain Time Seen by Provider: 04/03/18 15:42 Chief Complaint (Nursing): Chest Pain History Per: Patient Onset/Duration Of Symptoms: Days (2) Current Symptoms Are (Timing): Still Present Severity: Mild Pain Scale Rating Of: 3 Quality: Tightness Associated Symptoms: Dyspnea Modifying Factors: None Exacerbating Factors: None Additional Complaint(s): Chest tightness assoc with SOB and lightheadedness x 2 days. H/o PE, on Xarelto. Sxs similar to those when dx'ed with PE in Aug 2017. Denies leg pain or swelling - Risk Factors PE Risk Factors: Pos: Previous PE Past Medical History Vital Signs: Last Vital Signs Temp 98.5 F 04/03/18 15:19 Pulse 107 H 04/03/18 15:19 Resp 18 04/03/18 15:19 BP 135/70 04/03/18 17:43 Pulse Ox 98 04/03/18 15:59 - Medical History PMH: Anxiety, Arthritis, HTN (NO MEDS), Pulmonary Embolism (Hx) Denies: Anemia, Depression, HIV, Chronic Kidney Disease, Sickle Cell Disease - Family History Family History: States: Unknown Family Hx - Home Medications Home Medications: Ambulatory Orders Medication Instructions Recorded Cholecalciferol (Vitamin D3) 2,000 unit PO DAILY 04/03/18 [Vitamin D3] Magnesium [Magnesium] 1 tab PO DAILY 04/03/18 Rivaroxaban [Xarelto] 20 mg PO DAILY 04/03/18 Sertraline [Zoloft] 25 mg PO DAILY 04/03/18 - Allergies Allergies/Adverse Reactions: Allergies Allergy/AdvReac Type Severity Reaction Status Date / Time No Known Allergies Allergy Verified 04/03/18 15:19 Review of Systems ROS Statement: Except As Marked, All Systems Reviewed And Found Negative Cardiovascular: Positive for: Chest Pain Respiratory: Positive for: Shortness of Breath Musculoskeletal: Negative for: Leg Pain Physical Exam - Reviewed Nursing Documentation Reviewed: Yes Vital Signs Reviewed: Yes - Physical Exam Appears: Positive for: Non-toxic, No Acute Distress Head Exam: Positive for: ATRAUMATIC, NORMAL INSPECTION, NORMOCEPHALIC Skin: Positive for: Normal Color, Warm, DRY Eye Exam: Positive for: EOMI, Normal appearance, PERRL ENT: Positive for: Normal ENT Inspection Neck: Positive for: Normal, Painless ROM Cardiovascular/Chest: Positive for: Regular Rate, Rhythm Respiratory: Positive for: CNT, Normal Breath Sounds Gastrointestinal/Abdominal: Positive for: Normal Exam, Soft Back: Positive for: Normal Inspection Extremity: Positive for: Normal ROM. Negative for: Calf Tenderness Neurologic/Psych: Positive for: Alert, Oriented - Laboratory Results Result Diagrams: 04/03/18 16:53 04/03/18 16:53 - ECG O2 Sat by Pulse Oximetry: 98 Disposition - Clinical Impression Clinical Impression: Anxiety - Patient ED Disposition Is Patient to be Admitted: No Counseled Patient/Family Regarding: Studies Performed, Diagnosis, Need For Followup - Disposition Referrals: [facility] [Outside] Disposition: Routine/Home Disposition Time: 19:40 Condition: FAIR Instructions: Anxiety, Adult (DC) Forms: [facility] (Yoruba)
[2018-04-03 17:00] LABS: BASO % 0.6 % (0.0-2.0); EOS % 0.2 % (0.0-4.0); HEMOGLOBIN 15.1 g/dL (12.0-16.0); LYMPH # 1.6 K/uL (1.0-4.3); LYMPH % 20.3 % (20.0-40.0); MEAN CELL VOLUME 92.5 fl (81.0-99.0); MEAN CORPUSCULAR HEMOGLOBIN 31.6 pg (27.0-31.0); MEAN CORPUSCULAR HGB CONC 34.2 g/dL (33.0-37.0); MEAN PLATELET VOLUME 8.2 fl (7.2-11.7); MONO # 0.4 K/uL (0.0-0.8); NEUT # 5.7 K/uL (1.8-7.0); NEUT % 73.9 % (50.0-75.0); NRBC % 0.1 % (0.0-0.0); RBC 4.78 Mil/uL (3.80-5.20); RED CELL DISTRIBUTION WIDTH 12.8 % (11.5-14.5); WHITE BLOOD COUNT 7.7 K/uL (4.8-10.8)
[2018-04-03 17:07] LABS: ALB/GLOB RATIO 1.3 (1.0-2.1); ALBUMIN 4.7 g/dL (3.5-5.0); ALT/SGPT 35 U/L (9-52); AST/SGOT 24 U/L (14-36); BLOOD UREA NITROGEN 14 mg/dl (7-17); CALCIUM 9.7 mg/dL (8.4-10.2); GFR AFRICAN-AMERICAN > 60; GFR NON-AFRICAN AMERICAN > 60
--- NOTE | 2018-04-03 17:13 | RAD ---
HISTORY: Chest pain COMPARISON: 08/05/2017. TECHNIQUE: Chest PA and lateral FINDINGS: LUNGS: No active pulmonary disease. PLEURA: No significant pleural effusion identified. No pneumothorax apparent. CARDIOVASCULAR: No radiographic findings to suggest acute or significant cardiovascular disease. OSSEOUS STRUCTURES: No significant abnormalities. VISUALIZED UPPER ABDOMEN: Normal. OTHER FINDINGS: None. IMPRESSION: No active disease. No significant interval change compared to the prior examination(s).
[2018-04-03] MEDS ORDERED: Iodixanol 320 MG/ML 100 ML BOTTLE IV ONE (18:06)
[2018-04-03] MEDS ORDERED: Sodium Chloride 0.9% 50 ML IV ONE (18:06)
--- NOTE | 2018-04-03 18:50 | CT ---
PROCEDURE: CT Chest with contrast (Pulmonary Angiogram) HISTORY: Chest pain h/o PE COMPARISON: 08/15/2017 CT pulmonary angiogram. Summary of findings on the comparison examination: Multifocal small branch pulmonary emboli identified right upper and lower lobes. TECHNIQUE: Axial computed tomography images were obtained of the chest in the pulmonary arterial phase of enhancement. Coronal and sagittal reformatted images were created and reviewed. Maximum intensity projection (MIP) reconstructed images in the following planes: Axial only. Intravenous contrast dose: 75 cc Visipaque 320 Mean Hounsfield unit values in the main pulmonary artery: 245.94 Radiation dose: Total exam DLP = 346.30 mGy-cm. This CT exam was performed using one or more of the following dose reduction techniques: Automated exposure control, adjustment of the mA and/or kV according to patient size, and/or use of iterative reconstruction technique. FINDINGS: PULMONARY ARTERIES: Unremarkable. No acute pulmonary embolism. Recanalization of branch vessels previously identified as containing pulmonary emboli. AORTA: No acute findings. No thoracic aortic aneurysm. LUNGS: Unremarkable. No nodule, mass or pulmonary consolidation. PLEURAL SPACES: Unremarkable. No effusion or pneuomothorax. HEART: Unremarkable. No cardiomegaly. No significant pericardial effusion. LYMPH NODES: No lymphadenopathy. BONES, CHEST WALL: Unremarkable. No fracture or destructive lesion OTHER FINDINGS: Unremarkable. IMPRESSION: Unremarkable CT pulmonary angiogram. No pulmonary embolus. No evidence of recurrent or residual pulmonary emboli.
[2018-04-03 19:47] VITALS: BP 140/86; PULSE 89; RESP 17
--- NOTE | 2018-04-04 10:34 | CARD ---
APPROVED REPORT EKG Measurement Heart [id number] <Conclusion> Sinus tachycardia Nonspecific ST abnormality Abnormal ECG
== END 2018-04-03 19:50 | disposition home or self-care (01) ==
LOC: H.ER 15:12
DX: F41.9 Anxiety disorder, unspecified (principal); I10 Essential (primary) hypertension; Z86.711 Personal history of pulmonary embolism
CPT/HCPCS: 71046; 71275; 80053; 85025; 93005; 99283; Q9967